=== PATIENT | male | born 1995 ===

== ENCOUNTER 2020-11-07 12:01 | Inpatient (IN) | payer OTHER ==
--- NOTE | 2020-11-07 13:37 | XRay Report ---
CHEST 2 VIEWS INDICATION / CLINICAL INFORMATION: shortness of breath. COMPARISON: None available. FINDINGS: SUPPORT DEVICES: None. HEART / MEDIASTINUM: No significant abnormality. LUNGS / PLEURA: Mildly low lung volumes, otherwise, no significant pulmonary or pleural abnormality. No pneumothorax. ADDITIONAL FINDINGS: No significant additional findings. IMPRESSION: 1. Slightly decreased lung volumes. No other significant finding. Signer Name: Annette Arevalo MD Signed: 11/07/2020 1:33 PM Workstation Name: [email or web address]
--- NOTE | 2020-11-07 14:28 | Emergency Department Report ---
<YONG SALINAS - Last Filed: 11/07/20 17:12> ED General Adult HPI - General Chief complaint: Dyspnea/Respdistress Stated complaint: SORETHROAT BREATHING VOMITING Time Seen by Provider: 11/07/20 13:52 Source: patient Mode of arrival: Ambulatory Limitations: No Limitations - History of Present Illness Initial comments: 25-year-old morbidly obese male presents to the ER today with complaints of shortness of breath, dizziness and fatigue. Patient states his symptoms started 2 weeks ago. He reports shortness of breath whether he is at rest or on exertion with associated dry mouth, intermittent vomiting, constipation, dizz iness, urinary frequency and fatigue. He denies any chest pain or abdominal pain. He denies any cough or wheezing. He denies any fever or chills. He denies any lower extremity swelling or calf pain. He denies any history of tobacco use, lung disease or heart disease or any other significant past history. MD Complaint: SOB/dizzy/vomiting/ -: week(s) (2) Severity scale (0 -10): 0 - Related Data Allergies Allergy/AdvReac Type Severity Reaction Status Date / Time No Known Allergies Allergy Unverified 11/07/20 12:13 ED Review of Systems Comment: All other systems reviewed and negative Constitutional: malaise. denies: chills, fever Eyes: denies: eye pain, eye discharge, vision change ENT: denies: ear pain, throat pain, dental pain, hearing loss, epistaxis, congestion Respiratory: shortness of breath, SOB with exertion, SOB at rest. denies: cough, orthopnea, stridor, wheezing Cardiovascular: denies: chest pain, palpitations, dyspnea on exertion, edema, syncope, paroxysmal nocturnal dyspnea Gastrointestinal: denies: abdominal pain, nausea, vomiting, diarrhea, constipati on, hematemesis, melena, hematochezia Genitourinary: frequency. denies: urgency, dysuria, hematuria, discharge, testicular pain, testicular mass Musculoskeletal: denies: back pain, joint swelling, arthralgia Skin: denies: rash, lesions, change in color, change in hair/nails, pruritus Neurological: abnormal gait, other (Dizzy). denies: headache, weakness, numbness, paresthesias, confusion Psychiatric: denies: anxiety, depression, auditory hallucinations, visual hallucinations, homicidal thoughts, suicidal thoughts Hematological/Lymphatic: denies: easy bleeding, easy bruising ED Past Medical Hx - Past Medical History Hx Hypertension: Yes Hx Asthma: No (denies) Hx COPD: No (denies) - Surgical History Past Surgical History?: No ED Physical Exam - General Limitations: No Limitations General appearance: alert, obese - Head Head exam: Present: atraumatic, normocephalic - Eye Eye exam: Present: normal appearance, PERRL, EOMI Pupils: Present: normal accommodation - ENT ENT exam: Present: mucous membranes dry - Expanded ENT Exam Expanded Mouth exam: Present: normal external inspection. Absent: drooling, trismus, muffled voice, tongue normal, tongue elevation, laceration - Neck Neck exam: Present: normal inspection, full ROM. Absent: meningismus - Respiratory Respiratory exam: Present: other (+ Kussmaul's respirations noted). Absent: wheezes, rales, rhonchi, stridor - Cardiovascular Cardiovascular Exam: Present: normal rhythm, tachycardia, normal heart sounds - GI/Abdominal GI/Abdominal exam: Present: soft. Absent: distended, tenderness, guarding, rebound - Back Exam Back exam: Present: normal inspection - Neurological Exam Neurological exam: Present: alert, oriented X3, CN II-XII intact, normal gait - Psychiatric Psychiatric exam: Present: normal affect, normal mood - Skin Skin exam: Present: intact ED Medical Decision Making - Lab Data Result diagrams: 11/07/20 14:24 11/07/20 16:00 - EKG Data Rate: tachycardia (1178) No standard instances Qtc: prolonged - Radiology Data Radiology results: report reviewed Patient: MARIA EUGENIA GUERRERO MR#: [id number] : 1995 Acct:[id number] Age/Sex: 25 / M ADM Date: 11/07/20 Loc: ED Attending Dr: Ordering Physician: DAMIEN THOMPSON Date of Service: 11/07/20 Procedure(s): XR chest routine 2V Accession Number(s): [id number] cc: DAMIEN THOMPSON Fluoro Time In Minutes: CHEST 2 VIEWS INDICATION / CLINICAL INFORMATION: shortness of breath. COMPARISON: None available. FINDINGS: SUPPORT DEVICES: None. HEART / MEDIASTINUM: No significant abnormality. LUNGS / PLEURA: Mildly low lung volumes, otherwise, no significant pulmonary or pleural abnormality. No pneumothorax. ADDITIONAL FINDINGS: No significant additional findings. IMPRESSION: 1. Slightly decreased lung volumes. No other significant finding. Signer Name: Annette Arevalo MD Signed: 11/07/2020 1:33 PM Workstation Name: [email or web address] Transcribed By: Dictated By: Annette Arevalo MD Electronically Authenticated By: Annette Arevalo MD Signed Date/Time: 11/07/201332 DD/ 31 TD/TT: - Medical Decision Making 1537: Work-up today shows that patient is a new onset diabetic in DKA. DKA protocol ordered. Case discussed with Dr. Anthony Ghosh. Patient will be admitted to hospital. Discussed case with for admission. Nurses are currently working on trying get a adrien IV but are having some difficulty. Dr Reid recommend PICC line if unsuccessful. ED Disposition Clinical Impression: New onset type 2 diabetes mellitus DKA (diabetic ketoacidosis) Qualifiers: Diabetes mellitus type: type 2 Diabetes mellitus complication detail: with coma Qualified Code(s): E11.11 - Type 2 diabetes mellitus with ketoacidosis with coma Disposition: DC-09 OP ADMIT IP TO THIS HOSP Is pt being admited?: Yes Does the pt Need Aspirin: No Condition: Critical <ARBEN TRUJILLO III - Last Filed: 11/07/20 20:13> ED General Adult HPI - General PUI?: No ED Review of Systems ROS: Stated complaint: SORETHROAT BREATHING VOMITING Other details as noted in HPI ED Course Vital Signs 11/07/20 11/07/20 11/07/20 12:18 12:19 19:55 Temperature 98.6 F Pulse Rate 124 H 122 H Respiratory 22 22 Rate Blood Pressure 163/93 Blood Pressure 169/93 [Right] O2 Sat by Pulse 98 97 99 Oximetry 11/07/20 19:59 Temperature 98.6 F Pulse Rate 116 H Respiratory 30 H Rate Blood Pressure Blood Pressure 157/75 [Right] O2 Sat by Pulse 99 Oximetry - Reevaluation(s) Reevaluation #1: I reviewed the findings and management of this patient in real-time and I have personally seen and examined this patient and participated in the decision making for this patient with the midlevel. Patient is a 25-year-old male that p resents emergency room with shortness of breath, dizziness and difficulty breathing. Patient found to be in DKA. Nursing staff unable to obtain a peripheral line. I will place a ultrasound-guided IV. I examined the patient. Patient is tachypneic. On the property assessment monitor patient is hypertensive. Patient's lung sounds are clear. CV Ricci shows a normal S1-S2 and no murmur. Patient has Kussmaul breathing. Abdominal exam is negative. I discussed all results with patient. I discussed plan of care with patient. Patient agrees with plan of care and admission. Patient to be admitted to the hospitalist service. See procedure note for ultrasound-guided IV. 11/07/20 18:08 Reevaluation #2: I discussed the procedure with the patient and the patient agrees. Patient will have a central line placed in his right IJ. See procedure note. 11/07/20 18:34 Reevaluation #3: Medication order placed for nurse to use a central line. I have personally reviewed the chest x-ray and it shows satisfactory placement of the central line. No pneumothorax noted. 11/07/20 20:12 - Consultations Consultation #1: I discussed the case with the hospitalist hospitalist was requested a central line be placed since the patient's peripheral IVs running bassinet. 11/07/20 18:24 - Central Line Placement Right IJ Consent Obtained: verbal consent, emergent situation Time Out Performed: Yes Patient Placed on Monitor/Pulse Ox: Yes MD Prep: mask, gown, gloves Central Line Prep: Chlorhexidine scrub, sterile drapes applied Local Anesthesia Used: Lidocaine 1% Amount of Anesthesia Used (mls): 5 Ultrasound Used for Placement: Yes Central Line Lumen Inserted: triple Reason for Insertion: Emergency Venous Access Bloods Obtained for Lab: No Central Line Position: good blood return, all ports aspirated, flus, sutured in place with 2-0 Dressing Applied: Tegaderm Post Procedure X-Ray: tip of catheter in good p, pneumothorax seen Patient Tolerated Procedure: well, no complications Complications: none Additional Comments: Central Venous Line Placement: Indication: Hemodynamic monitoring/Intravenous access A time-out was completed verifying correct patient, procedure, site, positioning.. The patient was placed in a dependent position appropriate for melissa tral lineplacement based on the vein to be cannulated. The patients <right neck was prepped and draped in sterile fashion. 1% Lidocaine was used to anesthetize the surrounding skin area. An ultrasound was used in a sterile fashion to identify vasculature. A triple lumen Cordis catheter was introduced into the the internal jugular using the Seldinger technique and under ultrasound guidance. The catheter was threaded smoothly over the guide wire and appropriate blood return was obtained. Each lumen of the catheter was evacuated of air and flushed with sterile saline. The catheter was then sutured in place to the skin and a sterile dressing applied. Perfusion to the extremity distal to the point of catheter insertion was checked and found to be adequate. A chest x-ray was ordered to assess for pneumothorax and line placement. Estimated Blood Loss: minimal The patient tolerated the procedure well and there were no complications. Care will be transferred back to the primary team. - EJ/Peripheral Line Arm R Time Out Performed: Yes Indications: nurses unable to establis Skin Cleansed in Sterile Fashion: Yes Size: 18 Dressing Placed: Tegaderm, tape Patient Tolerated Procedure: well, no complications Additional Comments: IV was placed under sterile conditions and using aseptic technique. Ultrasound- guided IV placed without difficulty. IV was placed into the right upper arm. IV had good blood return, flushed easily. A sterile Tegaderm was placed. Nurse cleared to use line. ED Medical Decision Making - Lab Data Result diagrams: 11/07/20 14:24 11/07/20 17:08 - Radiology Data Radiology results: report reviewed, image reviewed interpreted by me: Chest x-ray: No pneumonia, no pneumothorax, no foreign body, satisfactory place ment of the central line. No acute findings CHEST 1 VIEW 11/07/2020 6:44 PM INDICATION / CLINICAL INFORMATION: line placement. COMPARISON: 11/07/2020 FINDINGS: SUPPORT DEVICES: Central venous line tip projects the level the superior vena cava. HEART / MEDIASTINUM: No significant abnormality. LUNGS / PLEURA: No significant pulmonary or pleural abnormality. No pneumothora x. ADDITIONAL FINDINGS: No significant additional findings. IMPRESSION: 1. Central line in expected position. - Differential Diagnosis SLB, DKA, dizziness, electrolyte balance, dehydration Critical Care Time: Yes Critical care time in (mins) excluding proc time.: 35 Critical care attestation.: If time is entered above; I have spent that time in minutes in the direct care of this critically ill patient, excluding procedure time. Critical Care Time: 35 minutes ED Disposition Is pt being admited?: Yes Does the pt Need Aspirin: No Time of Disposition: 18:13
[2020-11-07] MEDS ORDERED: SODIUM CHLORIDE 0.9% 1000 ML 2,000 ML IV ONE (14:43)
[2020-11-07 15:02] LABS: Basophils # (Auto) 0.1 K/mm3 (0.0-0.1); Basophils % (Auto) 0.4 % (0.0-1.8); Lymphocytes # (Auto) 1.4 K/mm3 (1.2-5.4); Lymphocytes % (Auto) 7.9 % (13.4-35.0); Mean Corpuscular HGB Conc 31 % (32-34); Monocytes # (Auto) 1.9 K/mm3 (0.0-0.8); Monocytes % (Auto) 10.7 % (0.0-7.3); Platelet Count 271 K/mm3 (140-440); Red Cell Distribution Width 16.7 % (13.2-15.2)
[2020-11-07 15:05] LABS: Alanine Aminotransferase 31 units/L (7-56); BUN/Creatinine Ratio 8; Blood Urea Nitrogen 10 mg/dL (9-20); Calcium 9.6 mg/dL (8.4-10.2); Hemolysis Index 5
[2020-11-07] MEDS ORDERED: INSULIN REGULAR, HUMAN 100 UNITS/1 ML IV ONE (15:11)
[2020-11-07 15:17] LABS: Hematocrit 48.8 % (35.5-45.6); Hemoglobin 15.3 gm/dl (11.8-15.2); Mean Corpuscular Volume 66 fl (84-94)
[2020-11-07 15:20] LABS: Red Blood Count 7.38 M/mm3 (3.65-5.03)
[2020-11-07 16:29] LABS: BUN/Creatinine Ratio 8; Blood Urea Nitrogen 10 mg/dL (9-20); Calcium 9.1 mg/dL (8.4-10.2); Hemolysis Index 63
[2020-11-07 17:15] LABS: Bilirubin,Urine NEG (Negative); Blood,Urine MOD (Negative); Color,Urine Straw (Yellow); Mucus,Urine FEW /HPF; Urobilinogen,Urine < 2.0 mg/dL (<2.0); WBC,Urine < 1.0 /HPF (0.0-6.0)
[2020-11-07 17:41] LABS: BUN/Creatinine Ratio 8; Blood Urea Nitrogen 10 mg/dL (9-20); Calcium 9.1 mg/dL (8.4-10.2); Hemolysis Index 17
--- NOTE | 2020-11-07 19:58 | XRay Report ---
CHEST 1 VIEW 11/07/2020 6:44 PM INDICATION / CLINICAL INFORMATION: line placement. COMPARISON: 11/07/2020 FINDINGS: SUPPORT DEVICES: Central venous line tip projects the level the superior vena cava. HEART / MEDIASTINUM: No significant abnormality. LUNGS / PLEURA: No significant pulmonary or pleural abnormality. No pneumothorax. ADDITIONAL FINDINGS: No significant additional findings. IMPRESSION: 1. Central line in expected position. Signer Name: Yefri Mustafa MD Signed: 11/07/2020 7:53 PM Workstation Name: [id number]
[2020-11-07 20:22] LABS: BUN/Creatinine Ratio 7; Blood Urea Nitrogen 10 mg/dL (9-20); Calcium 9.7 mg/dL (8.4-10.2); Hemolysis Index 38
[2020-11-07] MEDS: INSULIN REGULAR, HUMAN 100 UNITS in SODIUM CHLORIDE 0.9% 99 ML IV SCH (20:30)
[2020-11-07] MEDS ORDERED: DEXTROSE 50% IN WATER (25GM) 50 ML SYRINGE IV PRN (21:00)
--- NOTE | 2020-11-07 21:04 | History and Physical Report ---
History of Present Illness Date of examination: 11/07/20 Date of admission: 11/07/20 16:01 Chief complaint: Generalized weakness excessive thirst for 1 week History of present illness: 25-year-old morbidly obese male with no significant past medical history except for hypertension comes in for severe generalized weakness shortness of breath and increasing polyuria polydipsia and polyphagia. Never had diabetes in the past. Patient is single started 2 weeks ago. Shortness of breath on minimal exertion. Dry mouth. Intermittent vomiting. Constipation. Dizziness. Increased urinary frequency and fatigue. No chest pain. No passing out. No syncope. No chest pain. Generally feels weak and tired and polydipsia and polyuria present. - Past Medical History --Hypertension: Yes --Asthma: No (denies) --COPD: No (denies) - Surgical History Past Surgical History?: No social history does not smoke family history hypertension Review of Systems Comment: All other systems reviewed and negative Constitutional: Generalized weakness Eyes: denies: eye pain, eye discharge, vision change ENT: denies: ear pain, throat pain, dental pain, hearing loss, epistaxis, congestion Respiratory: shortness of breath, SOB with exertion, SOB at rest. denies: cough, orthopnea, stridor, wheezing Cardiovascular: denies: chest pain, palpitations, dyspnea on exertion, edema, syncope, paroxysmal nocturnal dyspnea Gastrointestinal: Nausea nausea and occasional vomiting Genitourinary: frequency. denies: urgency, dysuria, hematuria, discharge, testicular pain, testicular mass Musculoskeletal: denies: back pain, joint swelling, arthralgia Skin: denies: rash, lesions, change in color, change in hair/nails, pruritus Neurological: abnormal gait, other (Dizzy). denies: headache, weakness, numbness, paresthesias, confusion Psychiatric: denies: anxiety, depression, auditory hallucinations, visual reddy llucinations, homicidal thoughts, suicidal thoughts Hematological/Lymphatic: denies: easy bleeding, easy bruising Medications and Allergies Allergies Allergy/AdvReac Type Severity Reaction Status Date / Time No Known Allergies Allergy Unverified 11/07/20 12:13 Active Meds: Active Medications Insulin Human Regular 100 (units/ Sodium Chloride) 100 mls @ 1 mls/hr IV TITR ANKIT; Protocol Last Admin: 11/07/20 20:30 Dose: 8 units/hr, 8 mls/hr Documented by: Exam - Constitutional Vitals: Temp Pulse Resp BP Pulse Ox 98.6 F 116 H 30 H 157/75 99 11/07/20 19:59 11/07/20 19:59 11/07/20 19:59 11/07/20 19:59 11/07/20 19:59 General appearance: Present: no acute distress, well-nourished - EENT Eyes: Present: PERRL ENT: hearing intact, clear oral mucosa, other (Dry tongue) - Neck Neck: Present: supple, normal ROM - Respiratory Respiratory effort: normal Respiratory: bilateral: CTA - Cardiovascular Heart rate: 98 Rhythm: regular Heart Sounds: Present: S1 & S2. Absent: rub, click - Extremities Extremities: pulses symmetrical, No edema Peripheral Pulses: within normal limits - Abdominal General gastrointestinal: Present: soft, non-tender, non-distended, normal bowel sounds Male genitourinary: Present: normal - Integumentary Integumentary: Present: clear, warm, dry - Musculoskeletal Musculoskeletal: gait normal, strength equal bilaterally - Psychiatric Psychiatric: appropriate mood/affect, intact judgment & insight - Neurologic Neurologic: CNII-XII intact, moves all extremities - Allied Health Allied health notes reviewed: nursing, case management HEART Score - HEART Score Troponin: Troponin T < 0.010 ng/mL (0.00-0.029) 11/07/20 14:24 Results - Labs CBC & Chem 7: 11/07/20 14:24 11/08/20 03:40 Labs: Laboratory Last Values WBC 17.4 K/mm3 (4.5-11.0) H 11/07/20 14:24 RBC 7.38 M/mm3 (3.65-5.03) H 11/07/20 14:24 Hgb 15.3 gm/dl (11.8-15.2) H 11/07/20 14:24 Hct 48.8 % (35.5-45.6) H 11/07/20 14:24 MCV 66 fl (84-94) L 11/07/20 14:24 MCH 21 pg (28-32) L 11/07/20 14:24 MCHC 31 % (32-34) L 11/07/20 14:24 RDW 16.7 % (13.2-15.2) H 11/07/20 14:24 Plt Count 271 K/mm3 (140-440) 11/07/20 14:24 Lymph % (Auto) 7.9 % (13.4-35.0) L 11/07/20 14:24 [place] % (Auto) 10.7 % (0.0-7.3) H 11/07/20 14:24 Eos % (Auto) 0.0 % (0.0-4.3) 11/07/20 14:24 Baso % (Auto) 0.4 % (0.0-1.8) 11/07/20 14:24 Lymph # (Auto) 1.4 K/mm3 (1.2-5.4) 11/07/20 14:24 [place] # (Auto) 1.9 K/mm3 (0.0-0.8) H 11/07/20 14:24 Eos # (Auto) 0.0 K/mm3 (0.0-0.4) 11/07/20 14:24 Baso # (Auto) 0.1 K/mm3 (0.0-0.1) 11/07/20 14:24 Seg Neutrophils % 81.0 % (40.0-70.0) H 11/07/20 14:24 Seg Neutrophils # 14.1 K/mm3 (1.8-7.7) H 11/07/20 14:24 VBG pH 7.130 (7.320-7.420) L* 11/07/20 15:16 Sodium 131 mmol/L (137-145) L 11/07/20 19:42 Potassium 4.2 mmol/L (3.6-5.0) 11/07/20 19:42 Chloride 90.2 mmol/L (98-107) L 11/07/20 19:42 Carbon Dioxide 6 mmol/L (22-30) L* 11/07/20 19:42 Anion Gap 39 mmol/L 11/07/20 19:42 BUN 10 mg/dL (9-20) 11/07/20 19:42 Creatinine 1.4 mg/dL (0.8-1.3) H 11/07/20 19:42 Estimated GFR > 60 ml/min 11/07/20 19:42 BUN/Creatinine Ratio 7 % 11/07/20 19:42 Glucose 664 mg/dL (75-100) H* 11/07/20 19:42 POC Glucose > 600 mg/dL (70-105) H 11/07/20 14:29 Calcium 9.7 mg/dL (8.4-10.2) 11/07/20 19:42 Phosphorus 3.60 mg/dL (2.5-4.5) 11/07/20 16:00 Magnesium 2.30 mg/dL (1.7-2.3) 11/07/20 16:00 Total Bilirubin 0.50 mg/dL (0.1-1.2) 11/07/20 14:24 AST 26 units/L (5-40) 11/07/20 14:24 ALT 31 units/L (7-56) 11/07/20 14:24 Alkaline Phosphatase 156 units/L (35-129) H 11/07/20 14:24 Troponin T < 0.010 ng/mL (0.00-0.029) 11/07/20 14:24 Total Protein 8.0 g/dL (6.3-8.2) 11/07/20 14:24 Albumin 4.0 g/dL (3.9-5) 11/07/20 14:24 Albumin/Globulin Ratio 1.0 % 11/07/20 14:24 Urine Color Straw (Yellow) 11/07/20 17:08 Urine Turbidity Clear (Clear) 11/07/20 17:08 Urine pH 6.0 (5.0-7.0) 11/07/20 17:08 Ur Specific Buckner 1.028 (1.003-1.030) 11/07/20 17:08 Urine Protein 30 mg/dl mg/dL (Negative) 11/07/20 17:08 Urine Glucose (UA) >=500 mg/dL (Negative) 11/07/20 17:08 Urine Ketones 80 mg/dL (Negative) 11/07/20 17:08 Urine Blood Mod (Negative) 11/07/20 17:08 Urine Nitrite Neg (Negative) 11/07/20 17:08 Urine Bilirubin Neg (Negative) 11/07/20 17:08 Urine Urobilinogen < 2.0 mg/dL (<2.0) 11/07/20 17:08 Ur Leukocyte Esterase Neg (Negative) 11/07/20 17:08 Urine WBC (Auto) < 1.0 /HPF (0.0-6.0) 11/07/20 17:08 Urine RBC (Auto) 1.0 /HPF (0.0-6.0) 11/07/20 17:08 U Epithel Cells (Auto) < 1.0 /HPF (0-13.0) 11/07/20 17:08 Urine Mucus Few /HPF 11/07/20 17:08 Short CBC 11/07/20 Range/Units 14:24 WBC 17.4 H (4.5-11.0) K/mm3 Hgb 15.3 H (11.8-15.2) gm/dl Hct 48.8 H (35.5-45.6) % Plt Count 271 (140-440) K/mm3 BMP 11/07/20 11/07/20 11/07/20 14:24 16:00 17:08 Sodium 129 L 124 L 126 L Potassium 4.0 4.3 3.7 Chloride 87.8 L 89.2 L 89.4 L Carbon Dioxide 6 L* 5 L* 5 L* BUN 10 10 10 Creatinine 1.2 1.3 1.3 Glucose 787 H* 820 H* 797 H* Calcium 9.6 9.1 9.1 11/07/20 11/07/20 11/08/20 19:42 21:00 03:40 Sodium 131 L 131 L 132 L Potassium 4.2 3.5 L 3.6 Chloride 90.2 L 96.3 L 100.3 Carbon Dioxide 6 L* 3 L* 6 L* BUN 10 10 9 Creatinine 1.4 H 1.2 1.1 Glucose 664 H* 577 H* 431 H Calcium 9.7 9.2 9.1 Cardiac Enzymes 11/07/20 Range/Units 14:24 Troponin T < 0.010 (0.00-0.029) ng/mL Liver Function 11/07/20 Range/Units 14:24 Total Bilirubin 0.50 (0.1-1.2) mg/dL AST 26 (5-40) units/L ALT 31 (7-56) units/L Alkaline Phosphatase 156 H (35-129) units/L Albumin 4.0 (3.9-5) g/dL Urine 11/07/20 Range/Units 17:08 Urine Color Straw (Yellow) Urine pH 6.0 (5.0-7.0) Ur Specific Buckner 1.028 (1.003-1.030) Urine Protein 30 mg/dl (Negative) mg/dL Urine Glucose (UA) >=500 (Negative) mg/dL Assessment and Plan Assessment and plan: Critical care statement The high probability OF a clinically significant sudden or life-threatening deterioration of the cardiorespiratory system and endocrine system required my full and direct attention, intervention and postoperative management. The aggregate critical care time was 40 minutes. The time is in addition to time spent performing reported procedures but includes the followin: Data review and interpretation 2: Patient assessment and monitoring of vital signs 3: Documentation 4:: Medication orders and management Advance Directives: Yes (Full code) VTE prophylaxis?: Chemical Plan of care discussed with patient/family: Yes - Patient Problems (1) DKA (diabetic ketoacidosis) Current Visit: Yes Status: Acute Qualifiers: Diabetes mellitus type: type 2 Diabetes mellitus complication detail: with coma Qualified Code(s): E11.11 - Type 2 diabetes mellitus with ketoacidosis with coma Plan to address problem: No history of diabetes in the past His age group may indicate KIRAN =maturity onset diabetes in the Borderline DKA and hyperosmolar state Treat the patient has DKA IV insulin IV fluids Supplement potassium if necessary IV insulin drip Dietitian consult (2) Metabolic acidosis Current Visit: Yes Status: Acute Plan to address problem: Correction of blood glucose levels and bicarb if necessary (3) Hyponatremia Current Visit: Yes Status: Acute Plan to address problem: Should correct with correction of blood glucose levels (4) Morbid obesity Current Visit: Yes Status: Chronic Plan to address problem: BMI is 53 Patient counseled Gastric bypass surgical candidate Patient to be referred to Dr. Cr as outpatient (5) DVT prophylaxis Current Visit: Yes Status: Acute Plan to address problem: On heparin and GI prophylaxis
[2020-11-07 21:56] LABS: BUN/Creatinine Ratio 8; Blood Urea Nitrogen 10 mg/dL (9-20); Calcium 9.2 mg/dL (8.4-10.2); Hemolysis Index 4
[2020-11-07] MEDS ORDERED: INSULIN REGULAR, HUMAN 100 UNITS in SODIUM CHLORIDE 0.9% 99 ML IV SCH (22:00)
[2020-11-07] MEDS ORDERED: INSULIN LISPRO 100 UNIT/ML SUB-Q SCH (22:00)
[2020-11-07] MEDS: D5W/0.45% NACL/KCL 20 MEQ 20 MEQ/1,000 ML BAG IV SCH (22:08)
[2020-11-07] MEDS: POTASSIUM CHLORIDE 10 MEQ 10 MEQ/100 ML BAG IV SCH ×4 (22:32→23:44)
[2020-11-07] MEDS: HEPARIN 5,000 UNIT/1 ML VIAL SUB-Q SCH (22:33)
[2020-11-08] MEDS: POTASSIUM CHLORIDE 10 MEQ 10 MEQ/100 ML BAG IV SCH ×2 (01:06→02:14)
[2020-11-08 04:21] LABS: BUN/Creatinine Ratio 8; Blood Urea Nitrogen 9 mg/dL (9-20); Calcium 9.1 mg/dL (8.4-10.2); Hemolysis Index 7
[2020-11-08] MEDS: D5W/0.45% NACL/KCL 20 MEQ 20 MEQ/1,000 ML BAG IV SCH ×2 (05:40→16:35)
[2020-11-08] MEDS: INSULIN REGULAR, HUMAN 100 UNITS in SODIUM CHLORIDE 0.9% 99 ML IV SCH ×2 (05:40→17:33)
[2020-11-08] MEDS ORDERED: hydrALAZINE 20 MG/1 ML INJ IV PRN (07:44)
[2020-11-08] MEDS: SODIUM CHLORIDE 0.9% 1000 ML 1,000 ML IV SCH ×2 (08:29→17:28)
[2020-11-08 10:07] LABS: Chol/HDL Ratio 4.35 %
[2020-11-08 10:40] LABS: BUN/Creatinine Ratio 9; Blood Urea Nitrogen 9 mg/dL (9-20); Calcium 10.1 mg/dL (8.4-10.2)
[2020-11-08 10:42] LABS: Hemolysis Index 5
--- NOTE | 2020-11-08 11:52 | Progress Note ---
<RANJITARTURO MitchellDayton - Last Filed: 11/08/20 14:08> Assessment and Plan Assessment and plan: This is a 25 year old male with HTN and MO admitted with DKA, electrolyte imbalances Neuro: No acute distress -Aspiration/fall precautions per policy -Reorientation as needed CV: Hypertension, elevated triglycerides -IV labetalol and hydralazine as needed -Blood pressure monitor per protocol -Start p.o. antihypertensives when able -Patient states that he does not take p.o. antihypertensives at home -11/18 lipid panel: Triglycerides 272, cholesterol 174, LDL 107, HDL 40 -Encourage lifestyle modifications Respiratory: Possible OHS/DOMINIQUE -Pulmonary hygiene -SPO2 monitoring -Supplemental oxygenation as needed -Outpatient PFTs and sleep study FEN/GI: DKA, hyponatremia, hypokalemia, metabolic acidosis, hyperphosphatemia, morbid obesity -Insulin drip -11/08 hemoglobin A1c pending -N.p.o. while on insulin drip -Replete potassium as needed -Nutrition consult -Dietary modifications and increasing physical activity encouraged -Trend BMP, phosphorus : NAD -Voiding into urinal Skin: No acute distress -Positional changes per protocol DVT/GI prophylaxis: Heparin subcu Lines: Right IJ TLC Dispo: ICU for now The high probability of a clinically significant, sudden or life threatening deterioration of the [endo] system(s) required my full and direct attention, intervention and personal management. The aggregate critical care time was [35] minutes. This time is in addition to time spent performing reported procedures but includes the following: [x] Data Review and interpretation [x] Patient assessment and monitoring of vital signs [x] Documentation [x] Medication orders and management History Interval history: This is a 25-year-old male with HTN and morbid obesity who presented to [facility] 11/07 with complaints of severe generalized weakness, shortness of breath and incre asing polyuria, polydipsia and polyphagia, SOB on minimal exertion, dry mouth, intermittent vomiting, constipation, dizziness, fatigue for approximately 2 weeks. Work-up in the emergency department revealed leukocytosis, polycythemia, hyponatremia, hypochloremia, Kussmaul's breathing on examination, Anion gap metabolic acidosis, hyperphosphatemia, hypokalemia, blood glucose of 787. Patient was admitted to the hospital service with consults to CCM on the DKA protocol. 11/08: AG not closed, IVF changed to ND from D51/2NS with KCL. Remains on insulin gtt and npo. K replaced Hospitalist Physical - Constitutional Vitals: Temp Pulse Resp BP Pulse Ox 98.6 F 104 H 26 H 134/85 97 11/08/20 04:28 11/08/20 09:41 11/08/20 09:41 11/08/20 09:41 11/08/20 09:41 General appearance: Present: no acute distress, well-nourished, obese - EENT Eyes: Present: PERRL, EOM intact ENT: hearing intact, clear oral mucosa, dentition normal - Neck Neck: Present: normal ROM - Respiratory Respiratory effort: normal Respiratory: bilateral: diminished - Cardiovascular Rhythm: regular Heart Sounds: Present: S1 & S2. Absent: systolic murmur, diastolic murmur - Extremities Extremities: no ischemia, pulses intact, pulses symmetrical, No edema, normal temperature, normal color, Full ROM (uses walker ) Peripheral Pulses: within normal limits - Abdominal General gastrointestinal: soft, non-tender, non-distended, normal bowel sounds - Integumentary Integumentary: Present: clear, warm, dry - Psychiatric Psychiatric: cooperative - Neurologic Neurologic: focal deficits, no moves all extremities - Allied Health Allied health notes reviewed: nursing, social work, case management HEART Score - HEART Score Troponin: Troponin T < 0.010 ng/mL (0.00-0.029) 11/07/20 14:24 Results - Labs CBC & Chem 7: 11/07/20 14:24 11/08/20 12:45 Labs: Laboratory Last Values WBC 17.4 K/mm3 (4.5-11.0) H 11/07/20 14:24 RBC 7.38 M/mm3 (3.65-5.03) H 11/07/20 14:24 Hgb 15.3 gm/dl (11.8-15.2) H 11/07/20 14:24 Hct 48.8 % (35.5-45.6) H 11/07/20 14:24 MCV 66 fl (84-94) L 11/07/20 14:24 MCH 21 pg (28-32) L 11/07/20 14:24 MCHC 31 % (32-34) L 11/07/20 14:24 RDW 16.7 % (13.2-15.2) H 11/07/20 14:24 Plt Count 271 K/mm3 (140-440) 11/07/20 14:24 Lymph % (Auto) 7.9 % (13.4-35.0) L 11/07/20 14:24 [place] % (Auto) 10.7 % (0.0-7.3) H 11/07/20 14:24 Eos % (Auto) 0.0 % (0.0-4.3) 11/07/20 14:24 Baso % (Auto) 0.4 % (0.0-1.8) 11/07/20 14:24 Lymph # (Auto) 1.4 K/mm3 (1.2-5.4) 11/07/20 14:24 [place] # (Auto) 1.9 K/mm3 (0.0-0.8) H 11/07/20 14:24 Eos # (Auto) 0.0 K/mm3 (0.0-0.4) 11/07/20 14:24 Baso # (Auto) 0.1 K/mm3 (0.0-0.1) 11/07/20 14:24 Seg Neutrophils % 81.0 % (40.0-70.0) H 11/07/20 14:24 Seg Neutrophils # 14.1 K/mm3 (1.8-7.7) H 11/07/20 14:24 VBG pH 7.130 (7.320-7.420) L* 11/07/20 15:16 Sodium 136 mmol/L (137-145) L 11/08/20 09:27 Potassium 3.4 mmol/L (3.6-5.0) L 11/08/20 09:27 Chloride 101.2 mmol/L (98-107) 11/08/20 09:27 Carbon Dioxide 11 mmol/L (22-30) L 11/08/20 09:27 Anion Gap 27 mmol/L 11/08/20 09:27 BUN 9 mg/dL (9-20) 11/08/20 09:27 Creatinine 1.0 mg/dL (0.8-1.3) 11/08/20 09:27 Estimated GFR > 60 ml/min 11/08/20 09:27 BUN/Creatinine Ratio 9 % 11/08/20 09:27 Glucose 342 mg/dL (75-100) H 11/08/20 09:27 POC Glucose 338 mg/dL (70-105) H 11/08/20 10:45 Calcium 10.1 mg/dL (8.4-10.2) 11/08/20 09:27 Phosphorus 2.30 mg/dL (2.5-4.5) L D 11/07/20 21:00 Magnesium 2.30 mg/dL (1.7-2.3) 11/07/20 21:00 Total Bilirubin 0.50 mg/dL (0.1-1.2) 11/07/20 14:24 AST 26 units/L (5-40) 11/07/20 14:24 ALT 31 units/L (7-56) 11/07/20 14:24 Alkaline Phosphatase 156 units/L (35-129) H 11/07/20 14:24 Troponin T < 0.010 ng/mL (0.00-0.029) 11/07/20 14:24 Total Protein 8.0 g/dL (6.3-8.2) 11/07/20 14:24 Albumin 4.0 g/dL (3.9-5) 11/07/20 14:24 Albumin/Globulin Ratio 1.0 % 11/07/20 14:24 Triglycerides 272 mg/dL (2-149) H 11/08/20 09:27 Cholesterol 174 mg/dL (50-199) 11/08/20 09:27 LDL Cholesterol Direct 107 mg/dL (50-130) 11/08/20 09:27 HDL Cholesterol 40 mg/dL (40-59) 11/08/20 09:27 Cholesterol/HDL Ratio 4.35 % 11/08/20 09:27 Urine Color Straw (Yellow) 11/07/20 17:08 Urine Turbidity Clear (Clear) 11/07/20 17:08 Urine pH 6.0 (5.0-7.0) 11/07/20 17:08 Ur Specific [place] 1.028 (1.003-1.030) 11/07/20 17:08 Urine Protein 30 mg/dl mg/dL (Negative) 11/07/20 17:08 Urine Glucose (UA) >=500 mg/dL (Negative) 11/07/20 17:08 Urine Ketones 80 mg/dL (Negative) 11/07/20 17:08 Urine Blood Mod (Negative) 11/07/20 17:08 Urine Nitrite Neg (Negative) 11/07/20 17:08 Urine Bilirubin Neg (Negative) 11/07/20 17:08 Urine Urobilinogen < 2.0 mg/dL (<2.0) 11/07/20 17:08 Ur Leukocyte Esterase Neg (Negative) 11/07/20 17:08 Urine WBC (Auto) < 1.0 /HPF (0.0-6.0) 11/07/20 17:08 Urine RBC (Auto) 1.0 /HPF (0.0-6.0) 11/07/20 17:08 U Epithel Cells (Auto) < 1.0 /HPF (0-13.0) 11/07/20 17:08 Urine Mucus Few /HPF 11/07/20 17:08 Peck/IV: Voiding Method Urinal Active Medications - Current Medications Current Medications: Generic Name Dose Route Start Last Admin Trade Name Freq PRN Reason Stop Dose Admin Dextrose 0 ml 11/07/20 21:00 Dextrose 50% In Water (25gm) 50 Ml Syringe IV Q30MIN PRN Hypoglycemia Protocol Heparin Sodium (Porcine) 5,000 unit 11/07/20 22:00 11/07/20 22:33 Heparin 5,000 Unit/1 Ml Vial SUB-Q 5,000 unit Q12HR ANKIT Administration Hydralazine HCl 10 mg 11/08/20 07:44 Hydralazine 20 Mg/1 Ml Inj IV Q4HR PRN Hypertension Insulin Human Regular 100 100 mls @ 1 mls/hr 11/07/20 16:00 11/08/20 10:48 units/ Sodium Chloride IV 12 units/hr TITR ANKIT 12 mls/hr Titration Protocol 1 UNITS/HR Potassium Chloride/Dextrose/Sod Cl 20 meq in 1,000 mls @ 125 mls/hr 11/07/20 22:00 11/08/20 05:40 D5w/0.45% Nacl/Kcl 20 Meq IV 125 mls/hr DIRECT ANKIT Administration Sodium Chloride 1,000 mls @ 125 mls/hr 11/08/20 08:30 11/08/20 08:29 Nacl 0.9% 1000 Ml IV 125 mls/hr DIRECT ANKIT Administration Labetalol HCl 10 mg 11/08/20 07:46 Labetalol 20 Mg/4 Ml Inj IV Q6HR PRN Hypertension Nutrition/Malnutrition Assess - Dietary Evaluation Nutrition/Malnutrition Findings: Nutrition Notes Start: 11/08/20 10:56 Freq: Status: Active Protocol: Document 11/08/20 10:57 JUJU (Rec: 11/08/20 11:01 JUJU [id number]) Nutrition Notes Need for Assessment generated from: MD Order,circuit court judge,MST, Education Initial or Follow up Brief Note Current Diagnosis Diabetes,Hypertension Current Diet No diet Labs/Tests BG >600 on adm Subjective/Other Information MD consult for education. RN screen for skin risk, new DM and MST. No signs of malnutrition. Pt accepted DM diet education however, he seemed more interested in getting water. Will follow for understanding. #1 Nutrition Diagnosis Food and nutrition-related knowledge deficit Etiology no prior DM education As Evidenced by Signs and Symptoms new DM diagnosis, pt had questions about carbs Nutrition Intervention Teaching Recipient Patient Learning Readiness Fair Teaching Methods Discussion,Handout Response to Teaching Reinforcement needed Education Handouts Provided Planning Healthy Meals Nutrition Label Reading Tips Barriers to Learning Motivation RD phone number provided Yes Patient aware of follow up options Yes Goal #1 Understand consistent CHO diet Anticipated Discharge Needs: Cardiac, Consistent CHO Follow-Up By: 11/11/20 Additional Comments FU for diet education reinforcement <GLENN ARCHER - Last Filed: 11/09/20 13:10> Assessment and Plan Assessment and plan: Agree with assessment and plan as outlined by nurse practitioner as above. Patient admitted for DKA, gap is not closed at this time, continues on insulin drip, monitoring labs closely. Continue care in ICU. Hospitalist Physical - Constitutional Vitals: Temp Pulse Resp BP Pulse Ox 99.4 F 105 H 27 H 152/76 100 11/09/20 12:00 11/09/20 10:11 11/09/20 10:11 11/09/20 10:11 11/09/20 10:11 HEART Score - HEART Score Troponin: Troponin T < 0.010 ng/mL (0.00-0.029) 11/07/20 14:24 Results - Labs CBC & Chem 7: 11/09/20 06:41 11/09/20 07:15 Labs: Laboratory Last Values WBC 11.4 K/mm3 (4.5-11.0) H 11/09/20 06:41 RBC 6.45 M/mm3 (3.65-5.03) H 11/09/20 06:41 Hgb 13.1 gm/dl (11.8-15.2) 11/09/20 06:41 Hct 40.0 % (35.5-45.6) 11/09/20 06:41 MCV 62 fl (84-94) L 11/09/20 06:41 MCH 20 pg (28-32) L 11/09/20 06:41 MCHC 33 % (32-34) 11/09/20 06:41 RDW 16.0 % (13.2-15.2) H 11/09/20 06:41 Plt Count 230 K/mm3 (140-440) 11/09/20 06:41 Lymph % (Auto) 7.9 % (13.4-35.0) L 11/07/20 14:24 [place] % (Auto) 10.7 % (0.0-7.3) H 11/07/20 14:24 Eos % (Auto) 0.0 % (0.0-4.3) 11/07/20 14:24 Baso % (Auto) 0.4 % (0.0-1.8) 11/07/20 14:24 Lymph # (Auto) 1.4 K/mm3 (1.2-5.4) 11/07/20 14:24 [place] # (Auto) 1.9 K/mm3 (0.0-0.8) H 11/07/20 14:24 Eos # (Auto) 0.0 K/mm3 (0.0-0.4) 11/07/20 14:24 Baso # (Auto) 0.1 K/mm3 (0.0-0.1) 11/07/20 14:24 Seg Neutrophils % 81.0 % (40.0-70.0) H 11/07/20 14:24 Seg Neutrophils # 14.1 K/mm3 (1.8-7.7) H 11/07/20 14:24 VBG pH 7.130 (7.320-7.420) L* 11/07/20 15:16 Sodium 136 mmol/L (137-145) L 11/09/20 07:15 Potassium 3.0 mmol/L (3.6-5.0) L 11/09/20 07:15 Chloride 105.0 mmol/L (98-107) 11/09/20 07:15 Carbon Dioxide 12 mmol/L (22-30) L 11/09/20 07:15 Anion Gap 22 mmol/L 11/09/20 07:15 BUN 10 mg/dL (9-20) 11/09/20 07:15 Creatinine 0.8 mg/dL (0.8-1.3) 11/09/20 07:15 Estimated GFR > 60 ml/min 11/09/20 07:15 BUN/Creatinine Ratio 13 % 11/09/20 07:15 Glucose 206 mg/dL (75-100) H 11/09/20 07:15 POC Glucose 188 mg/dL (70-105) H 11/09/20 13:01 Hemoglobin A1c 16.7 % (4-6) H 11/08/20 18:17 Calcium 9.5 mg/dL (8.4-10.2) 11/09/20 07:15 Phosphorus 0.60 mg/dL (2.5-4.5) L* D 11/09/20 06:41 Magnesium 2.10 mg/dL (1.7-2.3) 11/09/20 06:41 Total Bilirubin 0.40 mg/dL (0.1-1.2) 11/09/20 06:41 AST 21 units/L (5-40) 11/09/20 06:41 ALT 21 units/L (7-56) 11/09/20 06:41 Alkaline Phosphatase 113 units/L (35-129) 11/09/20 06:41 Troponin T < 0.010 ng/mL (0.00-0.029) 11/07/20 14:24 Total Protein 6.7 g/dL (6.3-8.2) 11/09/20 06:41 Albumin 3.2 g/dL (3.9-5) L 11/09/20 06:41 Albumin/Globulin Ratio 0.9 % 11/09/20 06:41 Triglycerides 272 mg/dL (2-149) H 11/08/20 09:27 Cholesterol 174 mg/dL (50-199) 11/08/20 09:27 LDL Cholesterol Direct 107 mg/dL (50-130) 11/08/20 09:27 HDL Cholesterol 40 mg/dL (40-59) 11/08/20 09:27 Cholesterol/HDL Ratio 4.35 % 11/08/20 09:27 Urine Color Straw (Yellow) 11/07/20 17:08 Urine Turbidity Clear (Clear) 11/07/20 17:08 Urine pH 6.0 (5.0-7.0) 11/07/20 17:08 Ur Specific [place] 1.028 (1.003-1.030) 11/07/20 17:08 Urine Protein 30 mg/dl mg/dL (Negative) 11/07/20 17:08 Urine Glucose (UA) >=500 mg/dL (Negative) 11/07/20 17:08 Urine Ketones 80 mg/dL (Negative) 11/07/20 17:08 Urine Blood Mod (Negative) 11/07/20 17:08 Urine Nitrite Neg (Negative) 11/07/20 17:08 Urine Bilirubin Neg (Negative) 11/07/20 17:08 Urine Urobilinogen < 2.0 mg/dL (<2.0) 11/07/20 17:08 Ur Leukocyte Esterase Neg (Negative) 11/07/20 17:08 Urine WBC (Auto) < 1.0 /HPF (0.0-6.0) 11/07/20 17:08 Urine RBC (Auto) 1.0 /HPF (0.0-6.0) 11/07/20 17:08 U Epithel Cells (Auto) < 1.0 /HPF (0-13.0) 11/07/20 17:08 Urine Mucus Few /HPF 11/07/20 17:08 Peck/IV: Voiding Method Urinal Active Medications - Current Medications Current Medications: Generic Name Dose Route Start Last Admin Trade Name Freq PRN Reason Stop Dose Admin Dextrose 0 ml 11/07/20 21:00 Dextrose 50% In Water (25gm) 50 Ml Syringe IV Q30MIN PRN Hypoglycemia Protocol Heparin Sodium (Porcine) 5,000 unit 11/07/20 22:00 11/09/20 09:18 Heparin 5,000 Unit/1 Ml Vial SUB-Q 5,000 unit Q12HR ANKIT Administration Hydralazine HCl 10 mg 11/08/20 07:44 Hydralazine 20 Mg/1 Ml Inj IV Q4HR PRN Hypertension Insulin Human Regular 100 100 mls @ 1 mls/hr 11/07/20 16:00 11/09/20 11:49 units/ Sodium Chloride IV 14 units/hr TITR ANKIT 14 mls/hr Titration Protocol 1 UNITS/HR Potassium Cl/Dextrose/Lact Ringer's 20 meq in 1,000 mls @ 125 mls/hr 11/09/20 08:00 11/09/20 08:43 D5lr W/Kcl 20 Meq IV 125 mls/hr DIRECT ANKIT Administration Sodium Phosphate 30 mmol/ 260 mls @ 40 mls/hr 11/09/20 08:00 11/09/20 08:49 Sodium Chloride IV 11/09/20 19:59 40 mls/hr Q6H ANKIT Administration Labetalol HCl 10 mg 11/08/20 07:46 Labetalol 20 Mg/4 Ml Inj IV Q6HR PRN Hypertension Nutrition/Malnutrition Assess - Dietary Evaluation Nutrition/Malnutrition Findings: Nutrition Notes Start: 11/08/20 10:56 Freq: Status: Active Protocol: Document 11/08/20 10:57 JUJU (Rec: 11/08/20 11:01 JUJU [id number]) Nutrition Notes Need for Assessment generated from: MD Order,circuit court judge,MST, Education Initial or Follow up Brief Note Current Diagnosis Diabetes,Hypertension Current Diet No diet Labs/Tests BG >600 on adm Subjective/Other Information MD consult for education. RN screen for skin risk, new DM and MST. No signs of malnutrition. Pt accepted DM diet education however, he seemed more interested in getting water. Will follow for understanding. #1 Nutrition Diagnosis Food and nutrition-related knowledge deficit Etiology no prior DM education As Evidenced by Signs and Symptoms new DM diagnosis, pt had questions about carbs Nutrition Intervention Teaching Recipient Patient Learning Readiness Fair Teaching Methods Discussion,Handout Response to Teaching Reinforcement needed Education Handouts Provided Planning Healthy Meals Nutrition Label Reading Tips Barriers to Learning Motivation RD phone number provided Yes Patient aware of follow up options Yes Goal #1 Understand consistent CHO diet Anticipated Discharge Needs: Cardiac, Consistent CHO Follow-Up By: 11/11/20 Additional Comments FU for diet education reinforcement
[2020-11-08] MEDS: HEPARIN 5,000 UNIT/1 ML VIAL SUB-Q SCH ×2 (12:30→21:31)
--- NOTE | 2020-11-08 12:57 | Consultation ---
History of Present Illness - Reason for Consult Consult date: 11/08/20 DKA - History of Present Illness 25 y/o male admitted with DKA Medications and Allergies Allergies Allergy/AdvReac Type Severity Reaction Status Date / Time No Known Allergies Allergy Unverified 11/14/20 09:54 Home Medications Medication Instructions Recorded Confirmed Last Taken Type Amoxicillin/K Clav Tab [Augmentin 1 each PO Q12HR #20 tablet 11/18/20 Unknown Rx 875MG TAB] Colesevelam [Welchol] 1,875 mg PO BID #14 tablet 11/18/20 Unknown Rx Gabapentin 100 mg PO Q8HR #90 capsule 11/18/20 Unknown Rx Insulin Glargine [Lantus VIAL] 35 units SUB-Q QAMDIAB 30 Days 11/18/20 Unknown Rx Insulin Glargine [Lantus VIAL] 35 units SUB-Q QHS 30 Days 11/18/20 Unknown Rx Insulin Regular, Human [HumuLIN R] 0 units SUB-Q ACHS 30 Days 11/18/20 Unknown Rx Insulin Regular, Human [HumuLIN R] 15 units SUB-Q AC 30 Days 11/18/20 Unknown Rx Metoprolol [Lopressor TAB] 50 mg PO BID #60 tablet 11/18/20 Unknown Rx Mupirocin [Bactroban 2% OINT] 1 applic TP BID #1 tube 11/18/20 Unknown Rx Phosphorus #1 [K-Phos Neutral] 250 mg PO QID #14 tablet 11/18/20 Unknown Rx Potassium Chloride 40 meq PO BID #10 packet 11/18/20 Unknown Rx lisinopriL [Zestril TAB] 20 mg PO QDAY #30 tablet 11/18/20 Unknown Rx Active Meds: Active Medications Dextrose (Dextrose 50% In Water (25gm) 50 Ml Syringe) 0 ml IV Q30MIN PRN; Protocol PRN Reason: Hypoglycemia Heparin Sodium (Porcine) (Heparin 5,000 Unit/1 Ml Vial) 5,000 unit SUB-Q Q12HR ANKIT Last Admin: 11/07/20 22:33 Dose: 5,000 unit Documented by: Hydralazine HCl (Hydralazine 20 Mg/1 Ml Inj) 10 mg IV Q4HR PRN PRN Reason: Hypertension Insulin Human Regular 100 (units/ Sodium Chloride) 100 mls @ 1 mls/hr IV TITR ANKIT; Protocol Last Titration: 11/08/20 10:48 Dose: 12 units/hr, 12 mls/hr Documented by: Potassium Chloride/Dextrose/Sod Cl (D5w/0.45% Nacl/Kcl 20 Meq) 20 meq in 1,000 mls @ 125 mls/hr IV DIRECT ANIKT Last Admin: 11/08/20 05:40 Dose: 125 mls/hr Documented by: Sodium Chloride (Nacl 0.9% 1000 Ml) 1,000 mls @ 125 mls/hr IV DIRECT ANKIT Last Admin: 11/08/20 08:29 Dose: 125 mls/hr Documented by: Labetalol HCl (Labetalol 20 Mg/4 Ml Inj) 10 mg IV Q6HR PRN PRN Reason: Hypertension Exam - Constitutional Vitals: Temp Pulse Resp BP Pulse Ox 98.6 F 104 H 26 H 134/85 97 11/08/20 04:28 11/08/20 09:41 11/08/20 09:41 11/08/20 09:41 11/08/20 09:41 General appearance: Present: no acute distress, well-nourished, obese - EENT Eyes: Present: PERRL, EOM intact Results - Labs CBC & Chem 7: 11/17/20 06:08 11/18/20 05:13 Labs: Abnormal lab results 11/07/20 11/07/20 11/07/20 Range/Units 14:24 14:24 14:29 WBC 17.4 H (4.5-11.0) K/mm3 RBC 7.38 H (3.65-5.03) M/mm3 Hgb 15.3 H (11.8-15.2) gm/dl Hct 48.8 H (35.5-45.6) % MCV 66 L (84-94) fl MCH 21 L (28-32) pg MCHC 31 L (32-34) % RDW 16.7 H (13.2-15.2) % Lymph % (Auto) 7.9 L (13.4-35.0) % [place] % (Auto) 10.7 H (0.0-7.3) % [place] # (Auto) 1.9 H (0.0-0.8) K/mm3 Seg Neutrophils % 81.0 H (40.0-70.0) % Seg Neutrophils # 14.1 H (1.8-7.7) K/mm3 VBG pH (7.320-7.420) Sodium 129 L (137-145) mmol/L Potassium (3.6-5.0) mmol/L Chloride 87.8 L (98-107) mmol/L Carbon Dioxide 6 L* (22-30) mmol/L Creatinine (0.8-1.3) mg/dL Glucose 787 H* (75-100) mg/dL POC Glucose > 600 H (70-105) mg/dL Phosphorus (2.5-4.5) mg/dL Alkaline Phosphatase 156 H (35-129) units/L Triglycerides (2-149) mg/dL 11/07/20 11/07/20 11/07/20 Range/Units 15:16 16:00 17:08 WBC (4.5-11.0) K/mm3 RBC (3.65-5.03) M/mm3 Hgb (11.8-15.2) gm/dl Hct (35.5-45.6) % MCV (84-94) fl MCH (28-32) pg MCHC (32-34) % RDW (13.2-15.2) % Lymph % (Auto) (13.4-35.0) % [place] % (Auto) (0.0-7.3) % [place] # (Auto) (0.0-0.8) K/mm3 Seg Neutrophils % (40.0-70.0) % Seg Neutrophils # (1.8-7.7) K/mm3 VBG pH 7.130 L* (7.320-7.420) Sodium 124 L 126 L (137-145) mmol/L Potassium (3.6-5.0) mmol/L Chloride 89.2 L 89.4 L (98-107) mmol/L Carbon Dioxide 5 L* 5 L* (22-30) mmol/L Creatinine (0.8-1.3) mg/dL Glucose 820 H* 797 H* (75-100) mg/dL POC Glucose (70-105) mg/dL Phosphorus (2.5-4.5) mg/dL Alkaline Phosphatase (35-129) units/L Triglycerides (2-149) mg/dL 11/07/20 11/07/20 11/07/20 Range/Units 19:42 21:00 21:04 WBC (4.5-11.0) K/mm3 RBC (3.65-5.03) M/mm3 Hgb (11.8-15.2) gm/dl Hct (35.5-45.6) % MCV (84-94) fl MCH (28-32) pg MCHC (32-34) % RDW (13.2-15.2) % Lymph % (Auto) (13.4-35.0) % [place] % (Auto) (0.0-7.3) % [place] # (Auto) (0.0-0.8) K/mm3 Seg Neutrophils % (40.0-70.0) % Seg Neutrophils # (1.8-7.7) K/mm3 VBG pH (7.320-7.420) Sodium 131 L 131 L (137-145) mmol/L Potassium 3.5 L (3.6-5.0) mmol/L Chloride 90.2 L 96.3 L (98-107) mmol/L Carbon Dioxide 6 L* 3 L* (22-30) mmol/L Creatinine 1.4 H (0.8-1.3) mg/dL Glucose 664 H* 577 H* (75-100) mg/dL POC Glucose 587 H (70-105) mg/dL Phosphorus 2.30 L D (2.5-4.5) mg/dL Alkaline Phosphatase (35-129) units/L Triglycerides (2-149) mg/dL 11/07/20 11/07/20 11/08/20 Range/Units 23:03 23:57 01:14 WBC (4.5-11.0) K/mm3 RBC (3.65-5.03) M/mm3 Hgb (11.8-15.2) gm/dl Hct (35.5-45.6) % MCV (84-94) fl MCH (28-32) pg MCHC (32-34) % RDW (13.2-15.2) % Lymph % (Auto) (13.4-35.0) % [place] % (Auto) (0.0-7.3) % [place] # (Auto) (0.0-0.8) K/mm3 Seg Neutrophils % (40.0-70.0) % Seg Neutrophils # (1.8-7.7) K/mm3 VBG pH (7.320-7.420) Sodium (137-145) mmol/L Potassium (3.6-5.0) mmol/L Chloride (98-107) mmol/L Carbon Dioxide (22-30) mmol/L Creatinine (0.8-1.3) mg/dL Glucose (75-100) mg/dL POC Glucose 545 H 539 H 492 H (70-105) mg/dL Phosphorus (2.5-4.5) mg/dL Alkaline Phosphatase (35-129) units/L Triglycerides (2-149) mg/dL 11/08/20 11/08/20 11/08/20 Range/Units 02:11 03:09 03:40 WBC (4.5-11.0) K/mm3 RBC (3.65-5.03) M/mm3 Hgb (11.8-15.2) gm/dl Hct (35.5-45.6) % MCV (84-94) fl MCH (28-32) pg MCHC (32-34) % RDW (13.2-15.2) % Lymph % (Auto) (13.4-35.0) % [place] % (Auto) (0.0-7.3) % [place] # (Auto) (0.0-0.8) K/mm3 Seg Neutrophils % (40.0-70.0) % Seg Neutrophils # (1.8-7.7) K/mm3 VBG pH (7.320-7.420) Sodium 132 L (137-145) mmol/L Potassium (3.6-5.0) mmol/L Chloride (98-107) mmol/L Carbon Dioxide 6 L* (22-30) mmol/L Creatinine (0.8-1.3) mg/dL Glucose 431 H (75-100) mg/dL POC Glucose 443 H 477 H (70-105) mg/dL Phosphorus (2.5-4.5) mg/dL Alkaline Phosphatase (35-129) units/L Triglycerides (2-149) mg/dL 11/08/20 11/08/20 11/08/20 Range/Units 04:05 05:06 06:34 WBC (4.5-11.0) K/mm3 RBC (3.65-5.03) M/mm3 Hgb (11.8-15.2) gm/dl Hct (35.5-45.6) % MCV (84-94) fl MCH (28-32) pg MCHC (32-34) % RDW (13.2-15.2) % Lymph % (Auto) (13.4-35.0) % [place] % (Auto) (0.0-7.3) % [place] # (Auto) (0.0-0.8) K/mm3 Seg Neutrophils % (40.0-70.0) % Seg Neutrophils # (1.8-7.7) K/mm3 VBG pH (7.320-7.420) Sodium (137-145) mmol/L Potassium (3.6-5.0) mmol/L Chloride (98-107) mmol/L Carbon Dioxide (22-30) mmol/L Creatinine (0.8-1.3) mg/dL Glucose (75-100) mg/dL POC Glucose 428 H 421 H 383 H (70-105) mg/dL Phosphorus (2.5-4.5) mg/dL Alkaline Phosphatase (35-129) units/L Triglycerides (2-149) mg/dL 11/08/20 11/08/20 11/08/20 Range/Units 08:14 09:27 09:27 WBC (4.5-11.0) K/mm3 RBC (3.65-5.03) M/mm3 Hgb (11.8-15.2) gm/dl Hct (35.5-45.6) % MCV (84-94) fl MCH (28-32) pg MCHC (32-34) % RDW (13.2-15.2) % Lymph % (Auto) (13.4-35.0) % [place] % (Auto) (0.0-7.3) % [place] # (Auto) (0.0-0.8) K/mm3 Seg Neutrophils % (40.0-70.0) % Seg Neutrophils # (1.8-7.7) K/mm3 VBG pH (7.320-7.420) Sodium 136 L (137-145) mmol/L Potassium 3.4 L (3.6-5.0) mmol/L Chloride (98-107) mmol/L Carbon Dioxide 11 L (22-30) mmol/L Creatinine (0.8-1.3) mg/dL Glucose 342 H (75-100) mg/dL POC Glucose 355 H (70-105) mg/dL Phosphorus (2.5-4.5) mg/dL Alkaline Phosphatase (35-129) units/L Triglycerides 272 H (2-149) mg/dL 11/08/20 11/08/20 11/08/20 Range/Units 09:29 10:45 12:26 WBC (4.5-11.0) K/mm3 RBC (3.65-5.03) M/mm3 Hgb (11.8-15.2) gm/dl Hct (35.5-45.6) % MCV (84-94) fl MCH (28-32) pg MCHC (32-34) % RDW (13.2-15.2) % Lymph % (Auto) (13.4-35.0) % [place] % (Auto) (0.0-7.3) % [place] # (Auto) (0.0-0.8) K/mm3 Seg Neutrophils % (40.0-70.0) % Seg Neutrophils # (1.8-7.7) K/mm3 VBG pH (7.320-7.420) Sodium (137-145) mmol/L Potassium (3.6-5.0) mmol/L Chloride (98-107) mmol/L Carbon Dioxide (22-30) mmol/L Creatinine (0.8-1.3) mg/dL Glucose (75-100) mg/dL POC Glucose 313 H 338 H 278 H (70-105) mg/dL Phosphorus (2.5-4.5) mg/dL Alkaline Phosphatase (35-129) units/L Triglycerides (2-149) mg/dL - Imaging and Cardiology Chest x-ray: image reviewed Assessment and Plan 25 y/o male with DKA 1. Patient's gap is not closed as he was started on D5 fluids before his sugar was less than 250. This was corrected this am. Will need to continue to be NPO until gap closes. Serial BMP's at q6 hour intervals. Once closed, then can start long acting insulin and feed. Continue Insulin drip. Will continue to follow.
[2020-11-08 13:47] LABS: BUN/Creatinine Ratio 10; Blood Urea Nitrogen 10 mg/dL (9-20); Calcium 9.4 mg/dL (8.4-10.2); Hemolysis Index 1
[2020-11-08] MEDS ORDERED: POTASSIUM CHLORIDE 10 MEQ 0 MEQ/0 ML BAG IV ONE (16:26)
[2020-11-08] MEDS ORDERED: POTASSIUM CHLORIDE 10 MEQ 10 MEQ/100 ML BAG IV ONE (16:27)
[2020-11-08] MEDS ORDERED: POTASSIUM CHLORIDE 20 MEQ 20 MEQ/100 ML BAG IV SCH (17:00)
[2020-11-08] MEDS: POTASSIUM CHLORIDE 20 MEQ 20 MEQ/100 ML BAG IV SCH ×2 (17:15→18:37)
[2020-11-08 19:18] LABS: BUN/Creatinine Ratio 10; Blood Urea Nitrogen 10 mg/dL (9-20); Calcium 9.3 mg/dL (8.4-10.2); Hemolysis Index 2
[2020-11-08 19:32] LABS: Hematocrit 42.8 % (35.5-45.6); Hemoglobin 13.7 gm/dl (11.8-15.2); Mean Corpuscular HGB Conc 32 % (32-34); Platelet Count 236 K/mm3 (140-440); Red Blood Count 6.65 M/mm3 (3.65-5.03)
[2020-11-08 19:33] LABS: Mean Corpuscular Volume 64 fl (84-94)
[2020-11-08 23:13] LABS: BUN/Creatinine Ratio 13; Blood Urea Nitrogen 10 mg/dL (9-20); Hemolysis Index 20
[2020-11-08] MEDS ORDERED: SODIUM CHLORIDE 0.9% 1000 ML 1,000 ML IV SCH (23:45)
[2020-11-09] MEDS ORDERED: NACL 0.9%/KCL 20 MEQ 20 MEQ/1,000 ML BAG IV SCH (01:00)
[2020-11-09] MEDS: INSULIN REGULAR, HUMAN 100 UNITS in SODIUM CHLORIDE 0.9% 99 ML IV SCH ×4 (01:02→21:24)
[2020-11-09] MEDS: D5W/0.45% NACL/KCL 20 MEQ 20 MEQ/1,000 ML BAG IV SCH (03:08)
[2020-11-09 07:05] LABS: Hemoglobin 13.1 gm/dl (11.8-15.2); Mean Corpuscular HGB Conc 33 % (32-34); Platelet Count 230 K/mm3 (140-440); Red Blood Count 6.45 M/mm3 (3.65-5.03)
[2020-11-09 07:10] LABS: Mean Corpuscular Volume 62 fl (84-94)
[2020-11-09 07:26] LABS: Alanine Aminotransferase 21 units/L (7-56); Albumin 3.2 g/dL (3.9-5); BUN/Creatinine Ratio 13; Blood Urea Nitrogen 10 mg/dL (9-20); Calcium 9.8 mg/dL (8.4-10.2); Hemolysis Index 15
[2020-11-09] MEDS ORDERED: LACTATED RINGERS 1,000 ML IV ONE (07:32)
[2020-11-09] MEDS ORDERED: LACTATED RINGERS 1,000 ML IV SCH (07:45)
[2020-11-09 08:29] LABS: BUN/Creatinine Ratio 13; Blood Urea Nitrogen 10 mg/dL (9-20); Calcium 9.5 mg/dL (8.4-10.2); Hemolysis Index 30
[2020-11-09] MEDS: POTASSIUM CHLORIDE 20 MEQ 20 MEQ/100 ML BAG IV SCH ×4 (08:43→17:10)
[2020-11-09] MEDS: D5LR W/KCL 20 MEQ 20 MEQ/1,000 ML BAG IV SCH ×2 (08:43→15:01)
[2020-11-09] MEDS: SODIUM PHOSPHATE 30 MMOL in SODIUM CHLORIDE 0.9% 500 ML 250 ML IV SCH ×2 (08:49→15:40)
[2020-11-09] MEDS: HEPARIN 5,000 UNIT/1 ML VIAL SUB-Q SCH ×2 (09:18→21:24)
[2020-11-09] MEDS ORDERED: SODIUM CHLORIDE 0.9% 1000 ML 2,000 ML IV ONE (09:22)
--- NOTE | 2020-11-09 09:24 | Progress Note ---
Assessment and Plan 25 y/o male with DKA 11/09/20: Will give 2 more liters of normal saline bolus today. Continue IV insulin drip and q6 hour BMP's until gap is less than 14-15. Once there can transition to long acting insulin therapy and feed patient. 1. Patient's gap is not closed as he was started on D5 fluids before his sugar was less than 250. This was corrected this am. Will need to continue to be NPO until gap closes. Serial BMP's at q6 hour intervals. Once closed, then can start long acting insulin and feed. Continue Insulin drip. Will continue to follow. CCT 31 minutes. Subjective Date of service: 11/09/20 Interval history: Anion Gap still elevated. HgB A1c is 16. Patient also morbidly obese. Remainder is negative. Stable on room air. Objective - Constitutional Vitals: Vital Signs - 12hr 11/08/20 11/08/20 11/08/20 21:30 21:41 21:51 Temperature Pulse Rate 104 H 99 H 99 H Pulse Rate [ From Monitor] Respiratory 30 H 21 26 H Rate Blood Pressure 164/62 164/62 164/62 O2 Sat by Pulse 97 99 97 Oximetry 11/08/20 11/08/20 11/08/20 22:00 22:11 22:21 Temperature Pulse Rate 100 H 101 H 100 H Pulse Rate [ From Monitor] Respiratory 21 29 H 29 H Rate Blood Pressure 133/76 133/76 133/76 O2 Sat by Pulse 91 98 98 Oximetry 11/08/20 11/08/20 11/08/20 22:31 22:41 22:51 Temperature Pulse Rate 101 H 104 H 99 H Pulse Rate [ From Monitor] Respiratory 27 H 26 H 29 H Rate Blood Pressure 133/76 133/76 133/76 O2 Sat by Pulse 96 96 98 Oximetry 11/08/20 11/08/20 11/08/20 23:00 23:01 23:11 Temperature Pulse Rate 102 H 100 H Pulse Rate [ 114 H From Monitor] Respiratory 26 H 30 H Rate Blood Pressure 133/76 133/76 O2 Sat by Pulse 98 99 Oximetry 11/08/20 11/08/20 11/08/20 23:21 23:29 23:31 Temperature 98.4 F Pulse Rate 101 H 102 H Pulse Rate [ From Monitor] Respiratory 29 H 19 Rate Blood Pressure 133/76 133/76 O2 Sat by Pulse 99 98 Oximetry 11/08/20 11/08/20 11/09/20 23:41 23:50 00:00 Temperature Pulse Rate 93 H 102 H 106 H Pulse Rate [ From Monitor] Respiratory 24 28 H 26 H Rate Blood Pressure 133/76 133/76 146/93 O2 Sat by Pulse 97 98 95 Oximetry 11/09/20 11/09/20 11/09/20 00:11 00:21 00:31 Temperature Pulse Rate 98 H 97 H 101 H Pulse Rate [ From Monitor] Respiratory 27 H 27 H 27 H Rate Blood Pressure 146/93 133/76 133/76 O2 Sat by Pulse 97 97 97 Oximetry 11/09/20 11/09/20 11/09/20 00:41 00:51 01:00 Temperature Pulse Rate 102 H 103 H Pulse Rate [ 95 H From Monitor] Respiratory 28 H 29 H Rate Blood Pressure 133/76 133/76 O2 Sat by Pulse 97 98 Oximetry 11/09/20 11/09/20 11/09/20 01:01 01:11 01:21 Temperature Pulse Rate 101 H 103 H 105 H Pulse Rate [ From Monitor] Respiratory 25 H 26 H 26 H Rate Blood Pressure 133/76 133/76 133/76 O2 Sat by Pulse 98 97 98 Oximetry 11/09/20 11/09/20 11/09/20 01:31 01:41 01:51 Temperature Pulse Rate 98 H 96 H 105 H Pulse Rate [ From Monitor] Respiratory 27 H 25 H 26 H Rate Blood Pressure 133/76 133/76 133/76 O2 Sat by Pulse 96 95 98 Oximetry 11/09/20 11/09/20 11/09/20 02:00 02:11 02:21 Temperature Pulse Rate 105 H 104 H Pulse Rate [ From Monitor] Respiratory 28 H 27 H Rate Blood Pressure 147/86 147/86 147/86 O2 Sat by Pulse 94 97 96 Oximetry 11/09/20 11/09/20 11/09/20 02:31 02:41 02:51 Temperature Pulse Rate 103 H 104 H 100 H Pulse Rate [ From Monitor] Respiratory 30 H 29 H 28 H Rate Blood Pressure 147/86 147/86 147/86 O2 Sat by Pulse 99 98 98 Oximetry 11/09/20 11/09/20 11/09/20 03:01 03:11 03:21 Temperature Pulse Rate 99 H 102 H 108 H Pulse Rate [ From Monitor] Respiratory 27 H 21 22 Rate Blood Pressure 147/86 147/86 147/86 O2 Sat by Pulse 98 98 Oximetry 11/09/20 11/09/20 11/09/20 03:31 03:41 03:51 Temperature Pulse Rate 102 H 96 H 97 H Pulse Rate [ From Monitor] Respiratory 29 H 29 H 30 H Rate Blood Pressure 147/86 147/86 147/86 O2 Sat by Pulse 97 98 98 Oximetry 11/09/20 11/09/20 11/09/20 03:56 04:00 04:01 Temperature 97.6 F Pulse Rate 102 H 96 H Pulse Rate [ From Monitor] Respiratory 27 H Rate Blood Pressure 164/104 O2 Sat by Pulse 96 Oximetry 11/09/20 11/09/20 11/09/20 04:11 04:20 04:31 Temperature Pulse Rate 98 H 101 H 103 H Pulse Rate [ From Monitor] Respiratory 24 25 H 28 H Rate Blood Pressure 164/104 147/86 164/104 O2 Sat by Pulse 97 96 97 Oximetry 11/09/20 11/09/20 11/09/20 04:41 04:51 05:01 Temperature Pulse Rate 102 H 95 H Pulse Rate [ From Monitor] Respiratory 29 H 25 H Rate Blood Pressure 164/104 164/104 164/104 O2 Sat by Pulse 96 99 97 Oximetry 11/09/20 11/09/20 11/09/20 05:11 05:21 05:31 Temperature Pulse Rate 95 H 96 H 103 H Pulse Rate [ From Monitor] Respiratory 28 H 27 H 24 Rate Blood Pressure 164/104 164/104 164/104 O2 Sat by Pulse 99 100 98 Oximetry 11/09/20 11/09/20 11/09/20 05:41 05:51 06:00 Temperature Pulse Rate 103 H 112 H 105 H Pulse Rate [ From Monitor] Respiratory 28 H 28 H 29 H Rate Blood Pressure 164/104 164/104 138/86 O2 Sat by Pulse 98 97 95 Oximetry 11/09/20 11/09/20 11/09/20 06:11 06:21 06:31 Temperature Pulse Rate 103 H 107 H 104 H Pulse Rate [ From Monitor] Respiratory 29 H 29 H 31 H Rate Blood Pressure 138/86 138/86 138/86 O2 Sat by Pulse 97 97 98 Oximetry 11/09/20 11/09/20 11/09/20 06:41 06:50 07:01 Temperature Pulse Rate 103 H 100 H 100 H Pulse Rate [ From Monitor] Respiratory 17 30 H 24 Rate Blood Pressure 138/86 138/86 138/86 O2 Sat by Pulse 98 98 97 Oximetry 11/09/20 11/09/20 11/09/20 07:11 07:21 07:31 Temperature Pulse Rate 100 H 102 H 96 H Pulse Rate [ From Monitor] Respiratory 30 H 27 H 25 H Rate Blood Pressure 138/86 138/86 138/86 O2 Sat by Pulse 98 98 100 Oximetry 11/09/20 11/09/20 11/09/20 07:41 07:51 08:00 Temperature 98.3 F Pulse Rate 97 H 95 H Pulse Rate [ From Monitor] Respiratory 47 H 24 30 H Rate Blood Pressure 138/86 138/86 148/82 O2 Sat by Pulse 99 99 98 Oximetry 11/09/20 11/09/20 11/09/20 08:11 08:21 08:31 Temperature Pulse Rate 99 H 99 H 100 H Pulse Rate [ From Monitor] Respiratory 28 H 26 H 20 Rate Blood Pressure 148/82 148/82 148/82 O2 Sat by Pulse 99 100 99 Oximetry 11/09/20 11/09/20 11/09/20 08:41 08:51 09:00 Temperature Pulse Rate 101 H 101 H Pulse Rate [ 95 H From Monitor] Respiratory 31 H 29 H 30 H Rate Blood Pressure 148/82 148/82 O2 Sat by Pulse 99 99 98 Oximetry - Labs CBC & Chem 7: 11/09/20 06:41 11/09/20 07:15 Labs: Abnormal lab results 11/08/20 11/08/20 11/08/20 Range/Units 09:27 09:27 09:29 WBC (4.5-11.0) K/mm3 RBC (3.65-5.03) M/mm3 MCV (84-94) fl MCH (28-32) pg RDW (13.2-15.2) % Sodium 136 L (137-145) mmol/L Potassium 3.4 L (3.6-5.0) mmol/L Carbon Dioxide 11 L (22-30) mmol/L Glucose 342 H (75-100) mg/dL POC Glucose 313 H (70-105) mg/dL Hemoglobin A1c (4-6) % Phosphorus (2.5-4.5) mg/dL Albumin (3.9-5) g/dL Triglycerides 272 H (2-149) mg/dL 11/08/20 11/08/20 11/08/20 Range/Units 10:45 12:26 12:45 WBC (4.5-11.0) K/mm3 RBC (3.65-5.03) M/mm3 MCV (84-94) fl MCH (28-32) pg RDW (13.2-15.2) % Sodium 134 L (137-145) mmol/L Potassium 3.2 L (3.6-5.0) mmol/L Carbon Dioxide 11 L (22-30) mmol/L Glucose 283 H (75-100) mg/dL POC Glucose 338 H 278 H (70-105) mg/dL Hemoglobin A1c (4-6) % Phosphorus (2.5-4.5) mg/dL Albumin (3.9-5) g/dL Triglycerides (2-149) mg/dL 11/08/20 11/08/20 11/08/20 Range/Units 14:56 16:24 17:26 WBC (4.5-11.0) K/mm3 RBC (3.65-5.03) M/mm3 MCV (84-94) fl MCH (28-32) pg RDW (13.2-15.2) % Sodium (137-145) mmol/L Potassium (3.6-5.0) mmol/L Carbon Dioxide (22-30) mmol/L Glucose (75-100) mg/dL POC Glucose 293 H 269 H 282 H (70-105) mg/dL Hemoglobin A1c (4-6) % Phosphorus (2.5-4.5) mg/dL Albumin (3.9-5) g/dL Triglycerides (2-149) mg/dL 11/08/20 11/08/20 11/08/20 Range/Units 18:17 18:17 18:17 WBC 14.2 H (4.5-11.0) K/mm3 RBC 6.65 H (3.65-5.03) M/mm3 MCV 64 L (84-94) fl MCH 21 L (28-32) pg RDW 16.0 H (13.2-15.2) % Sodium 135 L (137-145) mmol/L Potassium (3.6-5.0) mmol/L Carbon Dioxide 10 L (22-30) mmol/L Glucose 268 H (75-100) mg/dL POC Glucose (70-105) mg/dL Hemoglobin A1c 16.7 H (4-6) % Phosphorus (2.5-4.5) mg/dL Albumin (3.9-5) g/dL Triglycerides (2-149) mg/dL 11/08/20 11/08/20 11/08/20 Range/Units 18:35 20:16 20:47 WBC (4.5-11.0) K/mm3 RBC (3.65-5.03) M/mm3 MCV (84-94) fl MCH (28-32) pg RDW (13.2-15.2) % Sodium (137-145) mmol/L Potassium (3.6-5.0) mmol/L Carbon Dioxide (22-30) mmol/L Glucose (75-100) mg/dL POC Glucose 280 H 247 H 237 H (70-105) mg/dL Hemoglobin A1c (4-6) % Phosphorus (2.5-4.5) mg/dL Albumin (3.9-5) g/dL Triglycerides (2-149) mg/dL 11/08/20 11/08/20 11/08/20 Range/Units 21:34 22:40 23:02 WBC (4.5-11.0) K/mm3 RBC (3.65-5.03) M/mm3 MCV (84-94) fl MCH (28-32) pg RDW (13.2-15.2) % Sodium 131 L (137-145) mmol/L Potassium 3.2 L (3.6-5.0) mmol/L Carbon Dioxide 9 L* (22-30) mmol/L Glucose 226 H (75-100) mg/dL POC Glucose 261 H 239 H (70-105) mg/dL Hemoglobin A1c (4-6) % Phosphorus (2.5-4.5) mg/dL Albumin (3.9-5) g/dL Triglycerides (2-149) mg/dL 11/09/20 11/09/20 11/09/20 Range/Units 00:06 01:01 02:00 WBC (4.5-11.0) K/mm3 RBC (3.65-5.03) M/mm3 MCV (84-94) fl MCH (28-32) pg RDW (13.2-15.2) % Sodium (137-145) mmol/L Potassium (3.6-5.0) mmol/L Carbon Dioxide (22-30) mmol/L Glucose (75-100) mg/dL POC Glucose 243 H 225 H 219 H (70-105) mg/dL Hemoglobin A1c (4-6) % Phosphorus (2.5-4.5) mg/dL Albumin (3.9-5) g/dL Triglycerides (2-149) mg/dL 11/09/20 11/09/20 11/09/20 Range/Units 03:01 04:05 04:55 WBC (4.5-11.0) K/mm3 RBC (3.65-5.03) M/mm3 MCV (84-94) fl MCH (28-32) pg RDW (13.2-15.2) % Sodium (137-145) mmol/L Potassium (3.6-5.0) mmol/L Carbon Dioxide (22-30) mmol/L Glucose (75-100) mg/dL POC Glucose 201 H 193 H 231 H (70-105) mg/dL Hemoglobin A1c (4-6) % Phosphorus (2.5-4.5) mg/dL Albumin (3.9-5) g/dL Triglycerides (2-149) mg/dL 11/09/20 11/09/20 11/09/20 Range/Units 05:59 06:41 06:41 WBC 11.4 H (4.5-11.0) K/mm3 RBC 6.45 H (3.65-5.03) M/mm3 MCV 62 L (84-94) fl MCH 20 L (28-32) pg RDW 16.0 H (13.2-15.2) % Sodium 135 L (137-145) mmol/L Potassium 3.0 L (3.6-5.0) mmol/L Carbon Dioxide 11 L (22-30) mmol/L Glucose 219 H (75-100) mg/dL POC Glucose 233 H (70-105) mg/dL Hemoglobin A1c (4-6) % Phosphorus 0.60 L* D (2.5-4.5) mg/dL Albumin 3.2 L (3.9-5) g/dL Triglycerides (2-149) mg/dL 11/09/20 11/09/20 11/09/20 Range/Units 06:53 07:15 08:01 WBC (4.5-11.0) K/mm3 RBC (3.65-5.03) M/mm3 MCV (84-94) fl MCH (28-32) pg RDW (13.2-15.2) % Sodium 136 L (137-145) mmol/L Potassium 3.0 L (3.6-5.0) mmol/L Carbon Dioxide 12 L (22-30) mmol/L Glucose 206 H (75-100) mg/dL POC Glucose 229 H 227 H (70-105) mg/dL Hemoglobin A1c (4-6) % Phosphorus (2.5-4.5) mg/dL Albumin (3.9-5) g/dL Triglycerides (2-149) mg/dL 11/09/20 Range/Units 09:18 WBC (4.5-11.0) K/mm3 RBC (3.65-5.03) M/mm3 MCV (84-94) fl MCH (28-32) pg RDW (13.2-15.2) % Sodium (137-145) mmol/L Potassium (3.6-5.0) mmol/L Carbon Dioxide (22-30) mmol/L Glucose (75-100) mg/dL POC Glucose 220 H (70-105) mg/dL Hemoglobin A1c (4-6) % Phosphorus (2.5-4.5) mg/dL Albumin (3.9-5) g/dL Triglycerides (2-149) mg/dL Medications & Allergies - Medications Allergies/Adverse Reactions: Allergies No Known Allergies Allergy (Unverified 11/07/20 12:13) Home Medications: Home Medications Medication Instructions Recorded Confirmed Last Taken Type No Known Home Medications [No 11/08/20 11/08/20 Unknown History Reported Home Medications] Active Medications: Generic Name Dose Route Start Last Admin Trade Name Freq PRN Reason Stop Dose Admin Dextrose 0 ml 11/07/20 21:00 Dextrose 50% In Water (25gm) 50 Ml Syringe IV Q30MIN PRN Hypoglycemia Protocol Heparin Sodium (Porcine) 5,000 unit 11/07/20 22:00 11/08/20 21:31 Heparin 5,000 Unit/1 Ml Vial SUB-Q 5,000 unit Q12HR ANKIT Administration Hydralazine HCl 10 mg 11/08/20 07:44 Hydralazine 20 Mg/1 Ml Inj IV Q4HR PRN Hypertension Insulin Human Regular 100 100 mls @ 1 mls/hr 11/07/20 16:00 11/09/20 08:42 units/ Sodium Chloride IV 17 units/hr TITR ANKIT 17 mls/hr Administration Protocol 1 UNITS/HR Potassium Cl/Dextrose/Lact Ringer's 20 meq in 1,000 mls @ 125 mls/hr 11/09/20 08:00 11/09/20 08:43 D5lr W/Kcl 20 Meq IV 125 mls/hr DIRECT ANKIT Administration Potassium Chloride 20 meq in 100 mls @ 100 mls/hr 11/09/20 08:00 11/09/20 08:43 Kcl 20meq/100ml IV 11/09/20 09:59 100 mls/hr Q1H ANKIT Administration Sodium Phosphate 30 mmol/ 260 mls @ 40 mls/hr 11/09/20 08:00 11/09/20 08:49 Sodium Chloride IV 11/09/20 19:59 40 mls/hr Q6H ANKIT Administration Labetalol HCl 10 mg 11/08/20 07:46 Labetalol 20 Mg/4 Ml Inj IV Q6HR PRN Hypertension HEART Score - HEART Score Troponin: Troponin T < 0.010 ng/mL (0.00-0.029) 11/07/20 14:24
--- NOTE | 2020-11-09 09:46 | Electrocardiograph Report ---
[facility] Test Date: 2020-11-07 Test Time: 16:09:55 Pat Name: MARIA EUGENIA GUERRERO Department: Room: A251 1 Gender: M [employer] Att[employer]: RITCHIE : 1995 Requested By: YONG SALINAS Order Number: [id number] Reading MD: Lee Marmolejo Measurements Intervals [place] Rate: 117 P: 94 [place]: 154 QRS: 104 QRSD: 105 T: 11 QT: 356 QTc: 498 Interpretive Statements Sinus tachycardia ST elev, probable normal early repol pattern Prolonged QT interval No previous ECG available for comparison Electronically Signed On 11-09-2020 9:46:11 EDT by Lee Marmolejo
--- NOTE | 2020-11-09 11:03 | Progress Note ---
<ROBERTOJohnathonARTURODayton - Last Filed: 11/09/20 11:09> Assessment and Plan Assessment and plan: This is a 25 year old male with HTN and MO admitted with DKA, electrolyte imbalances Neuro: No acute distress -Aspiration/fall precautions per policy -Reorientation as needed CV: Hypertension, elevated triglycerides -IV labetalol and hydralazine as needed -Blood pressure monitor per protocol -Start p.o. antihypertensives when able -Patient states that he does not take p.o. antihypertensives at home -11/18 lipid panel: Triglycerides 272, cholesterol 174, LDL 107, HDL 40 -Encourage lifestyle modifications Respiratory: Possible OHS/DOMINIQUE -Pulmonary hygiene -SPO2 monitoring -Supplemental oxygenation as needed -Outpatient PFTs and sleep study FEN/GI: DKA, Severe hypophosphatemia, hyponatremia, hypokalemia, metabolic acidosis, morbid obesity -Insulin drip -11/08 hemoglobin A1c 16.7 -LR bolus, NS bolus x2 -MIVF LRD5@125ml/hr -N.p.o. while on insulin drip -Replete potassium as needed and recheck level -Replete phosphate and recheck level -Nutrition consult -Dietary modifications and increasing physical activity encouraged -Trend BMP, phosphorus : NAD -Voiding into urinal Skin: No acute distress -Positional changes per protocol DVT/GI prophylaxis: Heparin subcu Lines: Right IJ TLC Dispo: ICU for now The high probability of a clinically significant, sudden or life threatening deterioration of the [endo] system(s) required my full and direct attention, intervention and personal management. The aggregate critical care time was [35] minutes. This time is in addition to time spent performing reported procedures but includes the following: [x] Data Review and interpretation [x] Patient assessment and monitoring of vital signs [x] Documentation [x] Medication orders and management History Interval history: This is a 25-year-old male with HTN and morbid obesity who presented to [facility] 11/07 with complaints of severe generalized weakness, shortness of breath and incr easing polyuria, polydipsia and polyphagia, SOB on minimal exertion, dry mouth, intermittent vomiting, constipation, dizziness, fatigue for approximately 2 weeks. Work-up in the emergency department revealed leukocytosis, polycythemia, hyponatremia, hypochloremia, Kussmaul's breathing on examination, Anion gap metabolic acidosis, hyperphosphatemia, hypokalemia, blood glucose of 787. Patient was admitted to the hospital service with consults to CCM on the DKA protocol. 11/08: AG not closed, IVF changed to ND from D51/2NS with KCL. Remains on insulin gtt and npo. K replaced 11/09: AG still not closed and remains on insulin gtt. IVF changed to D5 LR. Ordered additional LR bolus. CCM ordered 2 NS bolus. 1400 BMP with repeats at 2000 and 0400. Hospitalist Physical - Constitutional Vitals: Temp Pulse Resp BP Pulse Ox 98.3 F 105 H 27 H 152/76 100 11/09/20 08:00 11/09/20 10:11 11/09/20 10:11 11/09/20 10:11 11/09/20 10:11 General appearance: Present: no acute distress, well-nourished, obese - EENT Eyes: Present: PERRL, EOM intact ENT: clear oral mucosa, dentition normal - Neck Neck: Present: normal ROM - Respiratory Respiratory effort: normal Respiratory: bilateral: diminished (2/2 girth) - Cardiovascular Rhythm: regular Heart Sounds: Present: S1 & S2. Absent: systolic murmur, diastolic murmur - Extremities Extremities: no ischemia, pulses intact, pulses symmetrical, No edema, normal temperature, normal color, Full ROM Peripheral Pulses: within normal limits - Abdominal General gastrointestinal: soft, non-tender, non-distended, normal bowel sounds - Integumentary Integumentary: Present: warm, dry - Psychiatric Psychiatric: cooperative - Neurologic Neurologic: CNII-XII intact, no focal deficits, moves all extremities - Allied Health Allied health notes reviewed: nursing, RT, social work HEART Score - HEART Score Troponin: Troponin T < 0.010 ng/mL (0.00-0.029) 11/07/20 14:24 Results - Labs CBC & Chem 7: 11/09/20 06:41 11/09/20 07:15 Labs: Laboratory Last Values WBC 11.4 K/mm3 (4.5-11.0) H 11/09/20 06:41 RBC 6.45 M/mm3 (3.65-5.03) H 11/09/20 06:41 Hgb 13.1 gm/dl (11.8-15.2) 11/09/20 06:41 Hct 40.0 % (35.5-45.6) 11/09/20 06:41 MCV 62 fl (84-94) L 11/09/20 06:41 MCH 20 pg (28-32) L 11/09/20 06:41 MCHC 33 % (32-34) 11/09/20 06:41 RDW 16.0 % (13.2-15.2) H 11/09/20 06:41 Plt Count 230 K/mm3 (140-440) 11/09/20 06:41 Lymph % (Auto) 7.9 % (13.4-35.0) L 11/07/20 14:24 Green % (Auto) 10.7 % (0.0-7.3) H 11/07/20 14:24 Eos % (Auto) 0.0 % (0.0-4.3) 11/07/20 14:24 Baso % (Auto) 0.4 % (0.0-1.8) 11/07/20 14:24 Lymph # (Auto) 1.4 K/mm3 (1.2-5.4) 11/07/20 14:24 Green # (Auto) 1.9 K/mm3 (0.0-0.8) H 11/07/20 14:24 Eos # (Auto) 0.0 K/mm3 (0.0-0.4) 11/07/20 14:24 Baso # (Auto) 0.1 K/mm3 (0.0-0.1) 11/07/20 14:24 Seg Neutrophils % 81.0 % (40.0-70.0) H 11/07/20 14:24 Seg Neutrophils # 14.1 K/mm3 (1.8-7.7) H 11/07/20 14:24 VBG pH 7.130 (7.320-7.420) L* 11/07/20 15:16 Sodium 136 mmol/L (137-145) L 11/09/20 07:15 Potassium 3.0 mmol/L (3.6-5.0) L 11/09/20 07:15 Chloride 105.0 mmol/L (98-107) 11/09/20 07:15 Carbon Dioxide 12 mmol/L (22-30) L 11/09/20 07:15 Anion Gap 22 mmol/L 11/09/20 07:15 BUN 10 mg/dL (9-20) 11/09/20 07:15 Creatinine 0.8 mg/dL (0.8-1.3) 11/09/20 07:15 Estimated GFR > 60 ml/min 11/09/20 07:15 BUN/Creatinine Ratio 13 % 11/09/20 07:15 Glucose 206 mg/dL (75-100) H 11/09/20 07:15 POC Glucose 230 mg/dL (70-105) H 11/09/20 10:24 Hemoglobin A1c 16.7 % (4-6) H 11/08/20 18:17 Calcium 9.5 mg/dL (8.4-10.2) 11/09/20 07:15 Phosphorus 0.60 mg/dL (2.5-4.5) L* D 11/09/20 06:41 Magnesium 2.10 mg/dL (1.7-2.3) 11/09/20 06:41 Total Bilirubin 0.40 mg/dL (0.1-1.2) 11/09/20 06:41 AST 21 units/L (5-40) 11/09/20 06:41 ALT 21 units/L (7-56) 11/09/20 06:41 Alkaline Phosphatase 113 units/L (35-129) 11/09/20 06:41 Troponin T < 0.010 ng/mL (0.00-0.029) 11/07/20 14:24 Total Protein 6.7 g/dL (6.3-8.2) 11/09/20 06:41 Albumin 3.2 g/dL (3.9-5) L 11/09/20 06:41 Albumin/Globulin Ratio 0.9 % 11/09/20 06:41 Triglycerides 272 mg/dL (2-149) H 11/08/20 09:27 Cholesterol 174 mg/dL (50-199) 11/08/20 09:27 LDL Cholesterol Direct 107 mg/dL (50-130) 11/08/20 09:27 HDL Cholesterol 40 mg/dL (40-59) 11/08/20 09:27 Cholesterol/HDL Ratio 4.35 % 11/08/20 09:27 Urine Color Straw (Yellow) 11/07/20 17:08 Urine Turbidity Clear (Clear) 11/07/20 17:08 Urine pH 6.0 (5.0-7.0) 11/07/20 17:08 Ur Specific Effort 1.028 (1.003-1.030) 11/07/20 17:08 Urine Protein 30 mg/dl mg/dL (Negative) 11/07/20 17:08 Urine Glucose (UA) >=500 mg/dL (Negative) 11/07/20 17:08 Urine Ketones 80 mg/dL (Negative) 11/07/20 17:08 Urine Blood Mod (Negative) 11/07/20 17:08 Urine Nitrite Neg (Negative) 11/07/20 17:08 Urine Bilirubin Neg (Negative) 11/07/20 17:08 Urine Urobilinogen < 2.0 mg/dL (<2.0) 11/07/20 17:08 Ur Leukocyte Esterase Neg (Negative) 11/07/20 17:08 Urine WBC (Auto) < 1.0 /HPF (0.0-6.0) 11/07/20 17:08 Urine RBC (Auto) 1.0 /HPF (0.0-6.0) 11/07/20 17:08 U Epithel Cells (Auto) < 1.0 /HPF (0-13.0) 11/07/20 17:08 Urine Mucus Few /HPF 11/07/20 17:08 Peck/IV: Voiding Method Urinal Active Medications - Current Medications Current Medications: Generic Name Dose Route Start Last Admin Trade Name Freq PRN Reason Stop Dose Admin Dextrose 0 ml 11/07/20 21:00 Dextrose 50% In Water (25gm) 50 Ml Syringe IV Q30MIN PRN Hypoglycemia Protocol Heparin Sodium (Porcine) 5,000 unit 11/07/20 22:00 11/09/20 09:18 Heparin 5,000 Unit/1 Ml Vial SUB-Q 5,000 unit Q12HR ANKIT Administration Hydralazine HCl 10 mg 11/08/20 07:44 Hydralazine 20 Mg/1 Ml Inj IV Q4HR PRN Hypertension Insulin Human Regular 100 100 mls @ 1 mls/hr 11/07/20 16:00 11/09/20 10:26 units/ Sodium Chloride IV 18 units/hr TITR ANKIT 18 mls/hr Titration Protocol 1 UNITS/HR Potassium Cl/Dextrose/Lact Ringer's 20 meq in 1,000 mls @ 125 mls/hr 11/09/20 08:00 11/09/20 08:43 D5lr W/Kcl 20 Meq IV 125 mls/hr DIRECT ANKIT Administration Sodium Phosphate 30 mmol/ 260 mls @ 40 mls/hr 11/09/20 08:00 11/09/20 08:49 Sodium Chloride IV 11/09/20 19:59 40 mls/hr Q6H ANKIT Administration Sodium Chloride 2,000 mls @ 999 mls/hr 11/09/20 09:22 11/09/20 10:02 Nacl 0.9% 1000 Ml IV 11/09/20 11:22 999 mls/hr ONCE ONE Administration Labetalol HCl 10 mg 11/08/20 07:46 Labetalol 20 Mg/4 Ml Inj IV Q6HR PRN Hypertension Nutrition/Malnutrition Assess - Dietary Evaluation Nutrition/Malnutrition Findings: Nutrition Notes Start: 11/08/20 10:56 Freq: Status: Active Protocol: Document 11/08/20 10:57 JUJU (Rec: 11/08/20 11:01 [id number]) Nutrition Notes Need for Assessment generated from: MD Order,risk control officer,MST, Education Initial or Follow up Brief Note Current Diagnosis Diabetes,Hypertension Current Diet No diet Labs/Tests BG >600 on adm Subjective/Other Information MD consult for education. RN screen for skin risk, new DM and MST. No signs of malnutrition. Pt accepted DM diet education however, he seemed more interested in getting water. Will follow for understanding. #1 Nutrition Diagnosis Food and nutrition-related knowledge deficit Etiology no prior DM education As Evidenced by Signs and Symptoms new DM diagnosis, pt had questions about carbs Nutrition Intervention Teaching Recipient Patient Learning Readiness Fair Teaching Methods Discussion,Handout Response to Teaching Reinforcement needed Education Handouts Provided Planning Healthy Meals Nutrition Label Reading Tips Barriers to Learning Motivation RD phone number provided Yes Patient aware of follow up options Yes Goal #1 Understand consistent CHO diet Anticipated Discharge Needs: Cardiac, Consistent CHO Follow-Up By: 11/11/20 Additional Comments FU for diet education reinforcement <GLENN ARCHER - Last Filed: 11/10/20 13:28> Assessment and Plan Assessment and plan: Agree with assessment and plan as outlined by nurse practitioner as above. Patient continues to be in DKA, continue insulin sliding drip and give fluids, change to LR. Replete electrolytes. Spoke with the mother, updated her on the patient's progress. Hospitalist Physical - Constitutional Vitals: Temp Pulse Resp BP Pulse Ox 98.9 F 129 H 31 H 124/35 98 11/10/20 03:44 11/10/20 11:31 11/10/20 11:31 11/10/20 11:31 11/10/20 11:31 HEART Score - HEART Score Troponin: Troponin T < 0.010 ng/mL (0.00-0.029) 11/07/20 14:24 Results - Labs CBC & Chem 7: 11/10/20 08:08 11/10/20 08:08 Labs: Laboratory Last Values WBC 13.2 K/mm3 (4.5-11.0) H 11/10/20 08:08 RBC 5.79 M/mm3 (3.65-5.03) H 11/10/20 08:08 Hgb 11.6 gm/dl (11.8-15.2) L 11/10/20 08:08 Hct 35.0 % (35.5-45.6) L 11/10/20 08:08 MCV 60 fl (84-94) L 11/10/20 08:08 MCH 20 pg (28-32) L 11/10/20 08:08 MCHC 33 % (32-34) 11/10/20 08:08 RDW 15.5 % (13.2-15.2) H 11/10/20 08:08 Plt Count 167 K/mm3 (140-440) 11/10/20 08:08 Lymph % (Auto) 7.9 % (13.4-35.0) L 11/07/20 14:24 Green % (Auto) 10.7 % (0.0-7.3) H 11/07/20 14:24 Eos % (Auto) 0.0 % (0.0-4.3) 11/07/20 14:24 Baso % (Auto) 0.4 % (0.0-1.8) 11/07/20 14:24 Lymph # (Auto) 1.4 K/mm3 (1.2-5.4) 11/07/20 14:24 Green # (Auto) 1.9 K/mm3 (0.0-0.8) H 11/07/20 14:24 Eos # (Auto) 0.0 K/mm3 (0.0-0.4) 11/07/20 14:24 Baso # (Auto) 0.1 K/mm3 (0.0-0.1) 11/07/20 14:24 Seg Neutrophils % 81.0 % (40.0-70.0) H 11/07/20 14:24 Seg Neutrophils # 14.1 K/mm3 (1.8-7.7) H 11/07/20 14:24 VBG pH 7.130 (7.320-7.420) L* 11/07/20 15:16 Sodium 135 mmol/L (137-145) L 11/10/20 08:08 Potassium 2.8 mmol/L (3.6-5.0) L* 11/10/20 08:08 Chloride 105.0 mmol/L (98-107) 11/10/20 08:08 Carbon Dioxide 15 mmol/L (22-30) L 11/10/20 08:08 Anion Gap 18 mmol/L 11/10/20 08:08 BUN 6 mg/dL (9-20) L 11/10/20 08:08 Creatinine 1.0 mg/dL (0.8-1.3) 11/10/20 08:08 Estimated GFR > 60 ml/min 11/10/20 08:08 BUN/Creatinine Ratio 7 % 11/10/20 08:08 Glucose 282 mg/dL (75-100) H 11/10/20 08:08 POC Glucose 216 mg/dL (70-105) H 11/10/20 12:20 Hemoglobin A1c 16.7 % (4-6) H 11/08/20 18:17 Calcium 8.8 mg/dL (8.4-10.2) 11/10/20 08:08 Phosphorus 0.70 mg/dL (2.5-4.5) L* 11/10/20 08:08 Magnesium 1.40 mg/dL (1.7-2.3) L 11/10/20 08:08 Total Bilirubin 0.40 mg/dL (0.1-1.2) 11/10/20 08:08 AST 25 units/L (5-40) 11/10/20 08:08 ALT 24 units/L (7-56) 11/10/20 08:08 Alkaline Phosphatase 104 units/L (35-129) 11/10/20 08:08 Troponin T < 0.010 ng/mL (0.00-0.029) 11/07/20 14:24 Total Protein 5.6 g/dL (6.3-8.2) L 11/10/20 08:08 Albumin 2.7 g/dL (3.9-5) L 11/10/20 08:08 Albumin/Globulin Ratio 0.9 % 11/10/20 08:08 Triglycerides 272 mg/dL (2-149) H 11/08/20 09:27 Cholesterol 174 mg/dL (50-199) 11/08/20 09:27 LDL Cholesterol Direct 107 mg/dL (50-130) 11/08/20 09:27 HDL Cholesterol 40 mg/dL (40-59) 11/08/20 09:27 Cholesterol/HDL Ratio 4.35 % 11/08/20 09:27 Urine Color Straw (Yellow) 11/07/20 17:08 Urine Turbidity Clear (Clear) 11/07/20 17:08 Urine pH 6.0 (5.0-7.0) 11/07/20 17:08 Ur Specific Effort 1.028 (1.003-1.030) 11/07/20 17:08 Urine Protein 30 mg/dl mg/dL (Negative) 11/07/20 17:08 Urine Glucose (UA) >=500 mg/dL (Negative) 11/07/20 17:08 Urine Ketones 80 mg/dL (Negative) 11/07/20 17:08 Urine Blood Mod (Negative) 11/07/20 17:08 Urine Nitrite Neg (Negative) 11/07/20 17:08 Urine Bilirubin Neg (Negative) 11/07/20 17:08 Urine Urobilinogen < 2.0 mg/dL (<2.0) 11/07/20 17:08 Ur Leukocyte Esterase Neg (Negative) 11/07/20 17:08 Urine WBC (Auto) < 1.0 /HPF (0.0-6.0) 11/07/20 17:08 Urine RBC (Auto) 1.0 /HPF (0.0-6.0) 11/07/20 17:08 U Epithel Cells (Auto) < 1.0 /HPF (0-13.0) 11/07/20 17:08 Urine Mucus Few /HPF 11/07/20 17:08 Peck/IV: Voiding Method Urinal Active Medications - Current Medications Current Medications: Generic Name Dose Route Start Last Admin Trade Name Freq PRN Reason Stop Dose Admin Acetaminophen 650 mg 11/10/20 10:18 11/10/20 12:07 Acetaminophen 325 Mg Tab PO 650 mg Q6H PRN Administration Pain, Mild (1-3) Dextrose 50 ml 11/10/20 11:00 Dextrose 50% In Water (25gm) 50 Ml Syringe IV Q30MIN PRN Hypoglycemia Protocol Heparin Sodium (Porcine) 5,000 unit 11/07/20 22:00 11/10/20 11:40 Heparin 5,000 Unit/1 Ml Vial SUB-Q 5,000 unit Q12HR ANKIT Administration Hydralazine HCl 10 mg 11/08/20 07:44 Hydralazine 20 Mg/1 Ml Inj IV Q4HR PRN Hypertension Magnesium Sulfate 4 gm in 100 mls @ 25 mls/hr 11/10/20 11:00 11/10/20 11:59 Magnesium Sulfate 4gm/100ml IV 11/10/20 14:59 25 mls/hr ONCE ONE Administration Potassium Phosphate 40 mmol/ 513.3333 mls @ 83 mls/hr 11/10/20 11:15 11/10/20 12:00 Sodium Chloride IV 11/10/20 17:26 83 mls/hr ONCE ONE Administration Insulin Glargine 40 units 11/10/20 11:00 11/10/20 11:43 Insulin Glargine 100 Units/Ml SUB-Q 40 units QAMDIAB [facility] Administration Insulin Human Regular 0 units 11/10/20 11:00 11/10/20 11:48 Insulin Regular, Human 100 Units/1 Ml SUB-Q 6 units Q6H ANKIT Administration Protocol Labetalol HCl 10 mg 11/08/20 07:46 Labetalol 20 Mg/4 Ml Inj IV Q6HR PRN Hypertension Metoprolol Tartrate 5 mg 11/10/20 13:26 Metoprolol Tartrate 5 Mg/5 Ml Inj IV Q6HR PRN Tachyarrhythmias Sodium Phosphate 250 mg 11/10/20 14:00 K-Phos Neutral 250 Mg Tab PO QID [facility] Nutrition/Malnutrition Assess - Dietary Evaluation Nutrition/Malnutrition Findings: Nutrition Notes Start: 11/08/20 10:56 Freq: Status: Active Protocol: Document 11/08/20 10:57 JUJU (Rec: 11/08/20 11:01 [email or web address] [id number]) Nutrition Notes Need for Assessment generated from: MD Order,risk control officer,MST, Education Initial or Follow up Brief Note Current Diagnosis Diabetes,Hypertension Current Diet No diet Labs/Tests BG >600 on adm Subjective/Other Information MD consult for education. RN screen for skin risk, new DM and MST. No signs of malnutrition. Pt accepted DM diet education however, he seemed more interested in getting water. Will follow for understanding. #1 Nutrition Diagnosis Food and nutrition-related knowledge deficit Etiology no prior DM education As Evidenced by Signs and Symptoms new DM diagnosis, pt had questions about carbs Nutrition Intervention Teaching Recipient Patient Learning Readiness Fair Teaching Methods Discussion,Handout Response to Teaching Reinforcement needed Education Handouts Provided Planning Healthy Meals Nutrition Label Reading Tips Barriers to Learning Motivation RD phone number provided Yes Patient aware of follow up options Yes Goal #1 Understand consistent CHO diet Anticipated Discharge Needs: Cardiac, Consistent CHO Follow-Up By: 11/11/20 Additional Comments FU for diet education reinforcement
[2020-11-09 16:10] LABS: BUN/Creatinine Ratio 9; Blood Urea Nitrogen 7 mg/dL (9-20); Calcium 8.7 mg/dL (8.4-10.2); Hemolysis Index 0
[2020-11-09 16:21] LABS: Alanine Aminotransferase 24 units/L (7-56); Albumin 3.1 g/dL (3.9-5); BUN/Creatinine Ratio 9; Blood Urea Nitrogen 7 mg/dL (9-20); Calcium 8.7 mg/dL (8.4-10.2); Hemolysis Index 6
[2020-11-09 19:48] LABS: BUN/Creatinine Ratio 8; Blood Urea Nitrogen 6 mg/dL (9-20); Calcium 8.5 mg/dL (8.4-10.2); Hemolysis Index 6
[2020-11-09] MEDS ORDERED: SODIUM PHOSPHATE 30 MMOL in SODIUM CHLORIDE 0.9% 500 ML 500 ML IV ONE (20:15)
[2020-11-10] MEDS: D5LR W/KCL 20 MEQ 20 MEQ/1,000 ML BAG IV SCH (01:10)
[2020-11-10] MEDS: INSULIN REGULAR, HUMAN 100 UNITS in SODIUM CHLORIDE 0.9% 99 ML IV SCH ×2 (01:19→04:35)
[2020-11-10 09:31] LABS: Hemoglobin 11.6 gm/dl (11.8-15.2); Mean Corpuscular HGB Conc 33 % (32-34); Platelet Count 167 K/mm3 (140-440); Red Blood Count 5.79 M/mm3 (3.65-5.03); Red Cell Distribution Width 15.5 % (13.2-15.2)
[2020-11-10 09:36] LABS: Mean Corpuscular Volume 60 fl (84-94)
[2020-11-10 09:48] LABS: BUN/Creatinine Ratio 7
[2020-11-10 09:56] LABS: Alanine Aminotransferase 24 units/L (7-56); Albumin 2.7 g/dL (3.9-5); Blood Urea Nitrogen 6 mg/dL (9-20); Calcium 8.8 mg/dL (8.4-10.2); Hemolysis Index 2
--- NOTE | 2020-11-10 10:34 | Progress Note ---
Assessment and Plan 25 y/o male with DKA 11/10/20: Started lantus 40 based on weight as patient was on a very large amount of insulin and given his size, likely accurate but he may end up requiring more. I have started with this as he is not hungry and does not have much of an appetite. Will place him on q6 hour FSBS and give 2 more liters of normal salin e today. If he eats, and sugars maintain, would have not problem with transfer to floor. Also added high dose Correction insulin as well. 11/09/20: Will give 2 more liters of normal saline bolus today. Continue IV insulin drip and q6 hour BMP's until gap is less than 14-15. Once there can transition to long acting insulin therapy and feed patient. 1. Patient's gap is not closed as he was started on D5 fluids before his sugar was less than 250. This was corrected this am. Will need to continue to be NPO until gap closes. Serial BMP's at q6 hour intervals. Once closed, then can sta rt long acting insulin and feed. Continue Insulin drip. Will continue to follow. CCT 31 minutes. Subjective Date of service: 11/10/20 Interval history: Anion Gap is closed. Awake and alert. Thirsty but does not have much of an a ppetite. Still tachy. Objective - Constitutional Vitals: Vital Signs - 12hr 11/09/20 11/09/20 11/09/20 22:31 22:41 22:51 Temperature Pulse Rate 125 H 126 H 124 H Pulse Rate [ From Monitor] Respiratory 29 H 39 H 38 H Rate Blood Pressure 146/54 146/54 146/54 O2 Sat by Pulse 100 98 99 Oximetry 11/09/20 11/09/20 11/09/20 23:01 23:11 23:21 Temperature Pulse Rate 128 H 120 H 126 H Pulse Rate [ From Monitor] Respiratory 34 H 37 H 31 H Rate Blood Pressure 146/54 146/54 146/54 O2 Sat by Pulse 98 100 99 Oximetry 11/09/20 11/09/20 11/09/20 23:31 23:41 23:51 Temperature Pulse Rate 122 H 127 H 124 H Pulse Rate [ From Monitor] Respiratory 38 H 34 H 31 H Rate Blood Pressure 146/54 146/54 146/54 O2 Sat by Pulse 99 99 98 Oximetry 11/09/20 11/10/20 11/10/20 23:54 00:00 00:01 Temperature 99.4 F Pulse Rate 122 H 125 H Pulse Rate [ From Monitor] Respiratory 31 H Rate Blood Pressure 146/54 O2 Sat by Pulse 98 Oximetry 11/10/20 11/10/20 11/10/20 00:11 00:21 00:31 Temperature Pulse Rate 119 H 115 H 116 H Pulse Rate [ From Monitor] Respiratory 25 H 34 H 28 H Rate Blood Pressure 146/54 136/54 136/54 O2 Sat by Pulse 99 99 100 Oximetry 11/10/20 11/10/20 11/10/20 00:41 00:51 01:00 Temperature Pulse Rate 119 H 123 H Pulse Rate [ 121 H From Monitor] Respiratory 23 39 H 22 Rate Blood Pressure 136/54 136/54 O2 Sat by Pulse 98 100 99 Oximetry 11/10/20 11/10/20 11/10/20 01:01 01:11 01:21 Temperature Pulse Rate 121 H 121 H 121 H Pulse Rate [ From Monitor] Respiratory 17 34 H 36 H Rate Blood Pressure 136/54 136/54 136/54 O2 Sat by Pulse 99 99 98 Oximetry 11/10/20 11/10/20 11/10/20 01:31 01:41 01:50 Temperature Pulse Rate 118 H 113 H 119 H Pulse Rate [ From Monitor] Respiratory 18 34 H 34 H Rate Blood Pressure 136/54 136/54 136/54 O2 Sat by Pulse 100 97 98 Oximetry 11/10/20 11/10/20 11/10/20 02:00 02:11 02:20 Temperature Pulse Rate 124 H 126 H 120 H Pulse Rate [ From Monitor] Respiratory 33 H 35 H 29 H Rate Blood Pressure 149/66 149/66 149/66 O2 Sat by Pulse 99 99 99 Oximetry 11/10/20 11/10/20 11/10/20 02:31 02:41 02:51 Temperature Pulse Rate 118 H 118 H 118 H Pulse Rate [ From Monitor] Respiratory 37 H 38 H 36 H Rate Blood Pressure 149/66 149/66 149/66 O2 Sat by Pulse 98 99 98 Oximetry 11/10/20 11/10/20 11/10/20 03:01 03:11 03:21 Temperature Pulse Rate 121 H 119 H 126 H Pulse Rate [ From Monitor] Respiratory 24 35 H 23 Rate Blood Pressure 149/66 149/66 149/66 O2 Sat by Pulse 100 99 99 Oximetry 11/10/20 11/10/20 11/10/20 03:30 03:40 03:44 Temperature 98.9 F Pulse Rate 119 H 119 H Pulse Rate [ From Monitor] Respiratory 27 H 30 H Rate Blood Pressure 149/66 149/66 O2 Sat by Pulse 99 100 Oximetry 11/10/20 11/10/20 11/10/20 03:50 04:00 04:10 Temperature Pulse Rate 122 H 122 H 122 H Pulse Rate [ From Monitor] Respiratory 26 H 32 H 38 H Rate Blood Pressure 149/66 149/66 133/64 O2 Sat by Pulse 100 99 100 Oximetry 11/10/20 11/10/20 11/10/20 04:20 04:30 04:40 Temperature Pulse Rate 124 H 125 H 122 H Pulse Rate [ From Monitor] Respiratory 38 H 37 H 39 H Rate Blood Pressure 133/64 133/64 133/64 O2 Sat by Pulse 100 99 99 Oximetry 11/10/20 11/10/20 11/10/20 04:50 05:00 05:10 Temperature Pulse Rate 125 H 120 H 119 H Pulse Rate [ 120 H From Monitor] Respiratory 35 H 37 H 35 H Rate Blood Pressure 133/64 133/64 133/64 O2 Sat by Pulse 98 100 99 Oximetry 11/10/20 11/10/20 11/10/20 05:21 05:31 05:41 Temperature Pulse Rate 118 H 122 H 121 H Pulse Rate [ From Monitor] Respiratory 35 H 38 H 37 H Rate Blood Pressure 133/64 133/64 133/64 O2 Sat by Pulse 99 99 99 Oximetry 11/10/20 11/10/20 11/10/20 05:51 06:00 06:11 Temperature Pulse Rate 134 H 126 H 125 H Pulse Rate [ From Monitor] Respiratory 21 38 H 28 H Rate Blood Pressure 133/64 131/60 131/60 O2 Sat by Pulse 99 96 97 Oximetry 11/10/20 11/10/20 11/10/20 06:21 06:31 06:41 Temperature Pulse Rate 121 H 122 H 122 H Pulse Rate [ From Monitor] Respiratory 33 H 37 H 26 H Rate Blood Pressure 131/60 131/60 131/60 O2 Sat by Pulse 99 98 99 Oximetry 07/04/21 07/04/21 07/04/21 06:51 07:00 07:11 Temperature Pulse Rate 117 H 120 H 120 H Pulse Rate [ From Monitor] Respiratory 27 H 26 H 32 H Rate Blood Pressure 131/60 131/60 131/60 O2 Sat by Pulse 99 97 96 Oximetry 11/10/20 11/10/20 11/10/20 07:21 07:31 07:41 Temperature Pulse Rate 136 H 119 H 122 H Pulse Rate [ From Monitor] Respiratory 31 H 36 H 27 H Rate Blood Pressure 131/60 131/60 131/60 O2 Sat by Pulse 99 98 99 Oximetry 11/10/20 11/10/20 11/10/20 07:51 08:00 08:11 Temperature Pulse Rate 122 H 118 H 122 H Pulse Rate [ From Monitor] Respiratory 37 H 30 H 12 Rate Blood Pressure 131/60 119/62 119/62 O2 Sat by Pulse 97 99 98 Oximetry 11/10/20 11/10/20 11/10/20 08:21 08:31 08:41 Temperature Pulse Rate 119 H 116 H 118 H Pulse Rate [ From Monitor] Respiratory 14 17 19 Rate Blood Pressure 119/62 119/62 131/60 O2 Sat by Pulse 99 99 99 Oximetry 11/10/20 11/10/20 11/10/20 08:51 09:00 09:01 Temperature Pulse Rate 124 H 117 H Pulse Rate [ 118 H From Monitor] Respiratory 36 H 30 H 19 Rate Blood Pressure 131/60 131/60 O2 Sat by Pulse 99 98 98 Oximetry - Labs CBC & Chem 7: 11/10/20 08:08 11/10/20 08:08 Labs: Abnormal lab results 11/09/20 11/09/20 11/09/20 Range/Units 11:26 13:00 13:01 WBC (4.5-11.0) K/mm3 RBC (3.65-5.03) M/mm3 Hgb (11.8-15.2) gm/dl Hct (35.5-45.6) % MCV (84-94) fl MCH (28-32) pg RDW (13.2-15.2) % Sodium (137-145) mmol/L Potassium 2.9 L* (3.6-5.0) mmol/L Chloride (98-107) mmol/L Carbon Dioxide (22-30) mmol/L BUN (9-20) mg/dL Glucose (75-100) mg/dL POC Glucose 190 H 188 H (70-105) mg/dL Phosphorus (2.5-4.5) mg/dL Total Protein (6.3-8.2) g/dL Albumin (3.9-5) g/dL 11/09/20 11/09/20 11/09/20 Range/Units 14:34 15:03 15:10 WBC (4.5-11.0) K/mm3 RBC (3.65-5.03) M/mm3 Hgb (11.8-15.2) gm/dl Hct (35.5-45.6) % MCV (84-94) fl MCH (28-32) pg RDW (13.2-15.2) % Sodium (137-145) mmol/L Potassium 3.0 L (3.6-5.0) mmol/L Chloride 110.1 H (98-107) mmol/L Carbon Dioxide 13 L (22-30) mmol/L BUN 7 L (9-20) mg/dL Glucose 190 H (75-100) mg/dL POC Glucose 185 H 197 H (70-105) mg/dL Phosphorus 0.80 L* D (2.5-4.5) mg/dL Total Protein (6.3-8.2) g/dL Albumin (3.9-5) g/dL 11/09/20 11/09/20 11/09/20 Range/Units 15:55 16:26 17:20 WBC (4.5-11.0) K/mm3 RBC (3.65-5.03) M/mm3 Hgb (11.8-15.2) gm/dl Hct (35.5-45.6) % MCV (84-94) fl MCH (28-32) pg RDW (13.2-15.2) % Sodium (137-145) mmol/L Potassium 3.2 L (3.6-5.0) mmol/L Chloride 109.4 H (98-107) mmol/L Carbon Dioxide 13 L (22-30) mmol/L BUN 7 L (9-20) mg/dL Glucose 191 H (75-100) mg/dL POC Glucose 201 H 187 H (70-105) mg/dL Phosphorus (2.5-4.5) mg/dL Total Protein 5.6 L (6.3-8.2) g/dL Albumin 3.1 L (3.9-5) g/dL 11/09/20 11/09/20 11/09/20 Range/Units 18:47 19:15 19:24 WBC (4.5-11.0) K/mm3 RBC (3.65-5.03) M/mm3 Hgb (11.8-15.2) gm/dl Hct (35.5-45.6) % MCV (84-94) fl MCH (28-32) pg RDW (13.2-15.2) % Sodium 135 L (137-145) mmol/L Potassium 3.0 L (3.6-5.0) mmol/L Chloride 108.2 H (98-107) mmol/L Carbon Dioxide 12 L (22-30) mmol/L BUN 6 L (9-20) mg/dL Glucose 236 H (75-100) mg/dL POC Glucose 210 H 246 H (70-105) mg/dL Phosphorus 0.70 L* (2.5-4.5) mg/dL Total Protein (6.3-8.2) g/dL Albumin (3.9-5) g/dL 11/09/20 11/09/20 11/09/20 Range/Units 21:02 22:08 23:17 WBC (4.5-11.0) K/mm3 RBC (3.65-5.03) M/mm3 Hgb (11.8-15.2) gm/dl Hct (35.5-45.6) % MCV (84-94) fl MCH (28-32) pg RDW (13.2-15.2) % Sodium (137-145) mmol/L Potassium (3.6-5.0) mmol/L Chloride (98-107) mmol/L Carbon Dioxide (22-30) mmol/L BUN (9-20) mg/dL Glucose (75-100) mg/dL POC Glucose 228 H 270 H 255 H (70-105) mg/dL Phosphorus (2.5-4.5) mg/dL Total Protein (6.3-8.2) g/dL Albumin (3.9-5) g/dL 07/03/21 07/04/21 07/04/21 Range/Units 23:48 01:03 02:14 WBC (4.5-11.0) K/mm3 RBC (3.65-5.03) M/mm3 Hgb (11.8-15.2) gm/dl Hct (35.5-45.6) % MCV (84-94) fl MCH (28-32) pg RDW (13.2-15.2) % Sodium (137-145) mmol/L Potassium (3.6-5.0) mmol/L Chloride (98-107) mmol/L Carbon Dioxide (22-30) mmol/L BUN (9-20) mg/dL Glucose (75-100) mg/dL POC Glucose 285 H 255 H 239 H (70-105) mg/dL Phosphorus (2.5-4.5) mg/dL Total Protein (6.3-8.2) g/dL Albumin (3.9-5) g/dL 11/10/20 11/10/20 11/10/20 Range/Units 03:03 04:27 05:26 WBC (4.5-11.0) K/mm3 RBC (3.65-5.03) M/mm3 Hgb (11.8-15.2) gm/dl Hct (35.5-45.6) % MCV (84-94) fl MCH (28-32) pg RDW (13.2-15.2) % Sodium (137-145) mmol/L Potassium (3.6-5.0) mmol/L Chloride (98-107) mmol/L Carbon Dioxide (22-30) mmol/L BUN (9-20) mg/dL Glucose (75-100) mg/dL POC Glucose 254 H 266 H 278 H (70-105) mg/dL Phosphorus (2.5-4.5) mg/dL Total Protein (6.3-8.2) g/dL Albumin (3.9-5) g/dL 11/10/20 11/10/20 11/10/20 Range/Units 06:19 08:08 08:08 WBC 13.2 H (4.5-11.0) K/mm3 RBC 5.79 H (3.65-5.03) M/mm3 Hgb 11.6 L (11.8-15.2) gm/dl Hct 35.0 L (35.5-45.6) % MCV 60 L (84-94) fl MCH 20 L (28-32) pg RDW 15.5 H (13.2-15.2) % Sodium 135 L (137-145) mmol/L Potassium (3.6-5.0) mmol/L Chloride (98-107) mmol/L Carbon Dioxide 15 L (22-30) mmol/L BUN 6 L (9-20) mg/dL Glucose 282 H (75-100) mg/dL POC Glucose 290 H (70-105) mg/dL Phosphorus (2.5-4.5) mg/dL Total Protein 5.6 L (6.3-8.2) g/dL Albumin 2.7 L (3.9-5) g/dL 11/10/20 11/10/20 Range/Units 08:14 09:16 WBC (4.5-11.0) K/mm3 RBC (3.65-5.03) M/mm3 Hgb (11.8-15.2) gm/dl Hct (35.5-45.6) % MCV (84-94) fl MCH (28-32) pg RDW (13.2-15.2) % Sodium (137-145) mmol/L Potassium (3.6-5.0) mmol/L Chloride (98-107) mmol/L Carbon Dioxide (22-30) mmol/L BUN (9-20) mg/dL Glucose (75-100) mg/dL POC Glucose 283 H 279 H (70-105) mg/dL Phosphorus (2.5-4.5) mg/dL Total Protein (6.3-8.2) g/dL Albumin (3.9-5) g/dL Medications & Allergies - Medications Allergies/Adverse Reactions: Allergies No Known Allergies Allergy (Unverified 11/07/20 12:13) Home Medications: Home Medications Medication Instructions Recorded Confirmed Last Taken Type No Known Home Medications [No 11/08/20 11/08/20 Unknown History Reported Home Medications] Active Medications: Generic Name Dose Route Start Last Admin Trade Name Freq PRN Reason Stop Dose Admin Acetaminophen 650 mg 11/10/20 10:18 Acetaminophen 325 Mg Tab PO Q6H PRN Pain, Mild (1-3) Dextrose 0 ml 11/07/20 21:00 Dextrose 50% In Water (25gm) 50 Ml Syringe IV Q30MIN PRN Hypoglycemia Protocol Dextrose 50 ml 11/10/20 10:26 Dextrose 50% In Water (25gm) 50 Ml Syringe IV Q30MIN PRN Hypoglycemia Protocol Heparin Sodium (Porcine) 5,000 unit 11/07/20 22:00 11/09/20 21:24 Heparin 5,000 Unit/1 Ml Vial SUB-Q 5,000 unit Q12HR ANKIT Administration Hydralazine HCl 10 mg 11/08/20 07:44 Hydralazine 20 Mg/1 Ml Inj IV Q4HR PRN Hypertension Potassium Cl/Dextrose/Lact Ringer's 20 meq in 1,000 mls @ 125 mls/hr 11/09/20 08:00 11/10/20 01:10 D5lr W/Kcl 20 Meq IV 125 mls/hr DIRECT ANKIT Administration Insulin Glargine 40 units 11/10/20 11:00 Insulin Glargine 100 Units/Ml SUB-Q QAMDIAB ANKIT Insulin Human Regular 0 units 11/10/20 11:00 Insulin Regular, Human 100 Units/1 Ml SUB-Q Q6H [facility] Protocol Labetalol HCl 10 mg 11/08/20 07:46 Labetalol 20 Mg/4 Ml Inj IV Q6HR PRN Hypertension HEART Score - HEART Score Troponin: Troponin T < 0.010 ng/mL (0.00-0.029) 11/07/20 14:24
[2020-11-10] MEDS ORDERED: SODIUM POLYSTYRENE 15 GM/60 ML ORAL LIQD PO ONE (10:37)
[2020-11-10] MEDS ORDERED: SODIUM CHLORIDE 0.9% 1000 ML 1,000 ML IV ONE ×2 (10:38→10:39)
[2020-11-10] MEDS ORDERED: DEXTROSE 50% IN WATER (25GM) 50 ML SYRINGE IV PRN (11:00)
[2020-11-10] MEDS ORDERED: POTASSIUM CHLORIDE ER 20 MEQ TAB PO ONE (11:00)
[2020-11-10] MEDS ORDERED: POTASSIUM CHLORIDE 20 MEQ 20 MEQ/100 ML BAG IV SCH (11:00)
[2020-11-10] MEDS ORDERED: MAGNESIUM SULFATE 4 GM/100 ML BAG IV ONE (11:00)
[2020-11-10] MEDS ORDERED: INSULIN GLARGINE 100 UNITS/ML SUB-Q SCH (11:00)
[2020-11-10] MEDS ORDERED: POTASSIUM PHOSPHATE 40 MMOL in SODIUM CHLORIDE 0.9% 500 ML 500 ML IV ONE ×2 (11:15→18:56)
[2020-11-10] MEDS: HEPARIN 5,000 UNIT/1 ML VIAL SUB-Q SCH ×2 (11:40→21:27)
[2020-11-10] MEDS: INSULIN REGULAR, HUMAN 100 UNITS/1 ML SUB-Q SCH ×3 (11:48→22:23)
[2020-11-10] MEDS: ACETAMINOPHEN 325 MG TAB PO PRN ×2 (12:07→21:22)
--- NOTE | 2020-11-10 13:25 | Progress Note ---
Assessment and Plan Assessment and plan: This is a 25 year old male with HTN and MO admitted with DKA, electrolyte imbalances Neuro: No acute distress -Aspiration/fall precautions per policy -Reorientation as needed CV: Hypertension, elevated triglycerides -IV labetalol and hydralazine as needed -Blood pressure monitor per protocol discontinued -Patient states that he does not take p.o. antihypertensives at home -11/18 lipid panel: Triglycerides 272, cholesterol 174, LDL 107, HDL 40 -Encourage lifestyle modifications Metoprolol 5 mg IV every 6 as needed for tachycardia Respiratory: Possible OHS/DOMINIQUE -Pulmonary hygiene -SPO2 monitoring -Supplemental oxygenation as needed -Outpatient PFTs and sleep study FEN/GI: DKA, Severe hypophosphatemia, hyponatremia, hypokalemia, metabolic acidosis, morbid obesity -Insulin drip discontinued 11/10/2020 40 units of Lantus and high-dose insulin sliding scale -11/08 hemoglobin A1c 16.7 -LR bolus, NS bolus x2 -MIVF LRD5@125ml/hr -Replete potassium as needed and recheck level -Replete phosphate and recheck level Replete magnesium -Nutrition consult -Dietary modifications and increasing physical activity encouraged -Trend BMP, phosphorus : NAD -Voiding into urinal Skin: No acute distress -Positional changes per protocol DVT/GI prophylaxis: Heparin subcu Lines: Right IJ TLC Dispo: ICU for now, if stable and blood sugars remain leveled and gap remains closed, transfer to the floor. The high probability of a clinically significant, sudden or life threatening deterioration of the [endo] system(s) required my full and direct attention, intervention and personal management. The aggregate critical care time was [35] minutes. This time is in addition to time spent performing reported procedures but includes the following: [x] Data Review and interpretation [x] Patient assessment and monitoring of vital signs [x] Documentation [x] Medication orders and management History Interval history: This is a 25-year-old male with HTN and morbid obesity who presented to [facility] 11/07 with complaints of severe generalized weakness, shortness of breath and increasing polyuria, polydipsia and polyphagia, SOB on minimal exertion, dry mouth, intermittent vomiting, constipation, dizziness, fatigue for approximately 2 weeks. Work-up in the emergency department revealed leukocytosis, polycythemia, hyponatremia, hypochloremia, Kussmaul's breathing on examination, Anion gap metabolic acidosis, hyperphosphatemia, hypokalemia, blood glucose of 787. Patient was admitted to the hospital service with consults to [facility] on the DKA protocol. 11/08: AG not closed, IVF changed to ND from D51/2NS with KCL. Remains on insulin gtt and npo. K replaced 11/09: AG still not closed and remains on insulin gtt. IVF changed to D5 LR. Ordered additional LR bolus. CCM ordered 2 NS bolus. 1400 BMP with repeats at 2000 and 0400. 11/10/2020: Patient's breathing is improved, no chest pain or shortness of breath. Consulted with critical care physician to transition patient off of insulin drip. Hospitalist Physical - Physical exam Narrative exam: General appearance: Obese, no acute distress, well-nourished EENT: PERRL, EOM intact, hearing intact, clear oral mucosa Neck: Present: supple, normal ROM Respiratory: bilateral CTA, negative: rales, rhonchi, wheezing Cardiovascular: Regular rate/rhythm, Normal S1 & S2. No gallop, rub Extremities: no ischemia, No edema, normal temperature, normal color, Full ROM Abdominal: soft, no tenderness, non-distended, normal bowel sounds Integumentary: Present: clear, warm, dry no wounds, no erythema noted Psychiatric: appropriate mood/affect, intact judgment & insight Neurologic: CNII-XII intact, moves all extremities, no sensory or motor abnormalities - Constitutional Vitals: Temp Pulse Resp BP Pulse Ox 98.9 F 129 H 31 H 124/35 98 11/10/20 03:44 11/10/20 11:31 11/10/20 11:31 11/10/20 11:31 11/10/20 11:31 HEART Score - HEART Score Troponin: Troponin T < 0.010 ng/mL (0.00-0.029) 11/07/20 14:24 Results - Labs CBC & Chem 7: 11/10/20 08:08 11/10/20 08:08 Labs: Laboratory Last Values WBC 13.2 K/mm3 (4.5-11.0) H 11/10/20 08:08 RBC 5.79 M/mm3 (3.65-5.03) H 11/10/20 08:08 Hgb 11.6 gm/dl (11.8-15.2) L 11/10/20 08:08 Hct 35.0 % (35.5-45.6) L 11/10/20 08:08 MCV 60 fl (84-94) L 11/10/20 08:08 MCH 20 pg (28-32) L 11/10/20 08:08 MCHC 33 % (32-34) 11/10/20 08:08 RDW 15.5 % (13.2-15.2) H 11/10/20 08:08 Plt Count 167 K/mm3 (140-440) 11/10/20 08:08 Lymph % (Auto) 7.9 % (13.4-35.0) L 11/07/20 14:24 [place] % (Auto) 10.7 % (0.0-7.3) H 11/07/20 14:24 Eos % (Auto) 0.0 % (0.0-4.3) 11/07/20 14:24 Baso % (Auto) 0.4 % (0.0-1.8) 11/07/20 14:24 Lymph # (Auto) 1.4 K/mm3 (1.2-5.4) 11/07/20 14:24 [place] # (Auto) 1.9 K/mm3 (0.0-0.8) H 11/07/20 14:24 Eos # (Auto) 0.0 K/mm3 (0.0-0.4) 11/07/20 14:24 Baso # (Auto) 0.1 K/mm3 (0.0-0.1) 11/07/20 14:24 Seg Neutrophils % 81.0 % (40.0-70.0) H 11/07/20 14:24 Seg Neutrophils # 14.1 K/mm3 (1.8-7.7) H 11/07/20 14:24 VBG pH 7.130 (7.320-7.420) L* 11/07/20 15:16 Sodium 135 mmol/L (137-145) L 11/10/20 08:08 Potassium 2.8 mmol/L (3.6-5.0) L* 11/10/20 08:08 Chloride 105.0 mmol/L (98-107) 11/10/20 08:08 Carbon Dioxide 15 mmol/L (22-30) L 11/10/20 08:08 Anion Gap 18 mmol/L 11/10/20 08:08 BUN 6 mg/dL (9-20) L 11/10/20 08:08 Creatinine 1.0 mg/dL (0.8-1.3) 11/10/20 08:08 Estimated GFR > 60 ml/min 11/10/20 08:08 BUN/Creatinine Ratio 7 % 11/10/20 08:08 Glucose 282 mg/dL (75-100) H 11/10/20 08:08 POC Glucose 216 mg/dL (70-105) H 11/10/20 12:20 Hemoglobin A1c 16.7 % (4-6) H 11/08/20 18:17 Calcium 8.8 mg/dL (8.4-10.2) 11/10/20 08:08 Phosphorus 0.70 mg/dL (2.5-4.5) L* 11/10/20 08:08 Magnesium 1.40 mg/dL (1.7-2.3) L 11/10/20 08:08 Total Bilirubin 0.40 mg/dL (0.1-1.2) 11/10/20 08:08 AST 25 units/L (5-40) 11/10/20 08:08 ALT 24 units/L (7-56) 11/10/20 08:08 Alkaline Phosphatase 104 units/L (35-129) 11/10/20 08:08 Troponin T < 0.010 ng/mL (0.00-0.029) 11/07/20 14:24 Total Protein 5.6 g/dL (6.3-8.2) L 11/10/20 08:08 Albumin 2.7 g/dL (3.9-5) L 11/10/20 08:08 Albumin/Globulin Ratio 0.9 % 11/10/20 08:08 Triglycerides 272 mg/dL (2-149) H 11/08/20 09:27 Cholesterol 174 mg/dL (50-199) 11/08/20 09:27 LDL Cholesterol Direct 107 mg/dL (50-130) 11/08/20 09:27 HDL Cholesterol 40 mg/dL (40-59) 11/08/20 09:27 Cholesterol/HDL Ratio 4.35 % 11/08/20 09:27 Urine Color Straw (Yellow) 11/07/20 17:08 Urine Turbidity Clear (Clear) 11/07/20 17:08 Urine pH 6.0 (5.0-7.0) 11/07/20 17:08 Ur Specific [place] 1.028 (1.003-1.030) 11/07/20 17:08 Urine Protein 30 mg/dl mg/dL (Negative) 11/07/20 17:08 Urine Glucose (UA) >=500 mg/dL (Negative) 11/07/20 17:08 Urine Ketones 80 mg/dL (Negative) 11/07/20 17:08 Urine Blood Mod (Negative) 11/07/20 17:08 Urine Nitrite Neg (Negative) 11/07/20 17:08 Urine Bilirubin Neg (Negative) 11/07/20 17:08 Urine Urobilinogen < 2.0 mg/dL (<2.0) 11/07/20 17:08 Ur Leukocyte Esterase Neg (Negative) 11/07/20 17:08 Urine WBC (Auto) < 1.0 /HPF (0.0-6.0) 11/07/20 17:08 Urine RBC (Auto) 1.0 /HPF (0.0-6.0) 11/07/20 17:08 U Epithel Cells (Auto) < 1.0 /HPF (0-13.0) 11/07/20 17:08 Urine Mucus Few /HPF 11/07/20 17:08 Peck/IV: Voiding Method Urinal Active Medications - Current Medications Current Medications: Generic Name Dose Route Start Last Admin Trade Name Freq PRN Reason Stop Dose Admin Acetaminophen 650 mg 11/10/20 10:18 11/10/20 12:07 Acetaminophen 325 Mg Tab PO 650 mg Q6H PRN Administration Pain, Mild (1-3) Dextrose 50 ml 11/10/20 11:00 Dextrose 50% In Water (25gm) 50 Ml Syringe IV Q30MIN PRN Hypoglycemia Protocol Heparin Sodium (Porcine) 5,000 unit 11/07/20 22:00 11/10/20 11:40 Heparin 5,000 Unit/1 Ml Vial SUB-Q 5,000 unit Q12HR ANKIT Administration Hydralazine HCl 10 mg 11/08/20 07:44 Hydralazine 20 Mg/1 Ml Inj IV Q4HR PRN Hypertension Magnesium Sulfate 4 gm in 100 mls @ 25 mls/hr 11/10/20 11:00 11/10/20 11:59 Magnesium Sulfate 4gm/100ml IV 11/10/20 14:59 25 mls/hr ONCE ONE Administration Potassium Phosphate 40 mmol/ 513.3333 mls @ 83 mls/hr 11/10/20 11:15 11/10/20 12:00 Sodium Chloride IV 11/10/20 17:26 83 mls/hr ONCE ONE Administration Insulin Glargine 40 units 11/10/20 11:00 11/10/20 11:43 Insulin Glargine 100 Units/Ml SUB-Q 40 units QAMDIAB ANKIT Administration Insulin Human Regular 0 units 11/10/20 11:00 11/10/20 11:48 Insulin Regular, Human 100 Units/1 Ml SUB-Q 6 units Q6H ANKIT Administration Protocol Labetalol HCl 10 mg 11/08/20 07:46 Labetalol 20 Mg/4 Ml Inj IV Q6HR PRN Hypertension Sodium Phosphate 250 mg 11/10/20 14:00 K-Phos Neutral 250 Mg Tab PO QID ANKIT Nutrition/Malnutrition Assess - Dietary Evaluation Nutrition/Malnutrition Findings: Nutrition Notes Start: 11/08/20 10:56 Freq: Status: Active Protocol: Document 11/08/20 10:57 [email or web address] (Rec: 11/08/20 11:01 [email or web address] [id number]) Nutrition Notes Need for Assessment generated from: MD Order,renewable energy technician,MST, Education Initial or Follow up Brief Note Current Diagnosis Diabetes,Hypertension Current Diet No diet Labs/Tests BG >600 on adm Subjective/Other Information MD consult for education. RN screen for skin risk, new DM and MST. No signs of malnutrition. Pt accepted DM diet education however, he seemed more interested in getting water. Will follow for understanding. #1 Nutrition Diagnosis Food and nutrition-related knowledge deficit Etiology no prior DM education As Evidenced by Signs and Symptoms new DM diagnosis, pt had questions about carbs Nutrition Intervention Teaching Recipient Patient Learning Readiness Fair Teaching Methods Discussion,Handout Response to Teaching Reinforcement needed Education Handouts Provided Planning Healthy Meals Nutrition Label Reading Tips Barriers to Learning Motivation RD phone number provided Yes Patient aware of follow up options Yes Goal #1 Understand consistent CHO diet Anticipated Discharge Needs: Cardiac, Consistent CHO Follow-Up By: 11/11/20 Additional Comments FU for diet education reinforcement
[2020-11-10] MEDS ORDERED: METOPROLOL TARTRATE 5 MG/5 ML INJ IV SCH (14:00)
[2020-11-10] MEDS: K-PHOS NEUTRAL 250 MG TAB PO SCH ×3 (15:24→21:30)
[2020-11-10] MEDS: METOPROLOL TARTRATE 5 MG/5 ML INJ IV PRN (16:15)
[2020-11-11] MEDS: METOPROLOL TARTRATE 5 MG/5 ML INJ IV PRN (01:42)
[2020-11-11] MEDS ORDERED: INSULIN REGULAR, HUMAN 100 UNITS/1 ML SUB-Q SCH (07:30)
[2020-11-11] MEDS ORDERED: INSULIN LISPRO 100 UNIT/ML SUB-Q ONE (08:22)
[2020-11-11] MEDS ORDERED: INSULIN GLARGINE 100 UNITS/ML SUB-Q SCH (08:32)
[2020-11-11] MEDS: LISINOPRIL 10 MG TAB PO SCH (10:10)
[2020-11-11] MEDS: HEPARIN 5,000 UNIT/1 ML VIAL SUB-Q SCH ×2 (10:10→22:56)
[2020-11-11] MEDS: METOPROLOL TARTRATE 25 MG TAB PO SCH ×2 (10:11→22:56)
[2020-11-11] MEDS: K-PHOS NEUTRAL 250 MG TAB PO SCH ×5 (11:20→22:57)
[2020-11-11] MEDS: INSULIN LISPRO 100 UNIT/ML SUB-Q SCH ×2 (11:48→17:00)
[2020-11-11] MEDS: INSULIN REGULAR, HUMAN 100 UNITS/1 ML SUB-Q SCH ×2 (11:49→17:00)
[2020-11-11] MEDS: MUPIROCIN 2% OINT 22 GM TP SCH ×2 (11:49→22:59)
[2020-11-11 11:53] LABS: BUN/Creatinine Ratio 8; Blood Urea Nitrogen 8 mg/dL (9-20); Calcium 8.5 mg/dL (8.4-10.2); Hemolysis Index 0
[2020-11-11] MEDS ORDERED: LACTATED RINGERS 1,000 ML IV ONE (12:27)
[2020-11-11] MEDS ORDERED: POTASSIUM PHOSPHATE 45 MMOL in SODIUM CHLORIDE 0.9% 500 ML 500 ML IV ONE (13:00)
[2020-11-11] MEDS: POTASSIUM CHLORIDE 20 MEQ PACKET PO SCH (13:12)
--- NOTE | 2020-11-11 16:17 | Progress Note ---
Assessment and Plan Assessment and plan: This is a 25 year old male with HTN and MO admitted with DKA, electrolyte imbalances Neuro: No acute distress -Aspiration/fall precautions per policy -Reorientation as needed CV: Hypertension, elevated triglycerides -IV labetalol and hydralazine as needed -Blood pressure monitor per protocol discontinued -Patient states that he does not take p.o. antihypertensives at home -11/18 lipid panel: Triglycerides 272, cholesterol 174, LDL 107, HDL 40 Start atorvastatin Start lisinopril -Encourage lifestyle modifications Metoprolol 25 mg twice daily for tachycardia with IV metoprolol with parameters Respiratory: Possible OHS/DOMINIQUE -Pulmonary hygiene -SPO2 monitoring -Supplemental oxygenation as needed -Outpatient PFTs and sleep study FEN/GI: DKA, Severe hypophosphatemia, hyponatremia, hypokalemia, metabolic acidosis, morbid obesity -Insulin drip discontinued 11/10/2020 40 units of Lantus, lispro 10 units 3 times daily AC, and high-dose insulin sliding scale -11/08 hemoglobin A1c 16.7 -LR bolus, NS bolus x2 -Replete potassium as needed and recheck level -Replete phosphate and recheck level Replete magnesium -Nutrition consult -Dietary modifications and increasing physical activity encouraged -Trend BMP, phosphorus : NAD -Voiding into urinal Skin: No acute distress -Scrotal wound Wound care DVT/GI prophylaxis: Heparin subcu Lines: Right IJ TLC Dispo: continue to treat for mild DKA, make adjustments to insulin as needed, patient will need a large amount of insulin, consider Lantus twice daily with AC lispro. Patient has insurance, will be able to be discharged on Lantus pens and Humalog pens. CODE STATUS: Full History Interval history: This is a 25-year-old male with HTN and morbid obesity who presented to [facility] 11/07 with complaints of severe generalized weakness, shortness of breath and increasing polyuria, polydipsia and polyphagia, SOB on minimal exertion, dry mouth, intermittent vomiting, constipation, dizziness, fatigue for approximately 2 weeks. Work-up in the emergency department revealed leukocytosis, polycythemia, hyponatremia, hypochloremia, Kussmaul's breathing on examination, Anion gap metabolic acidosis, hyperphosphatemia, hypokalemia, blood glucose of 787. Patient was admitted to the hospital service with consults to [facility] on the DKA protocol. 11/08: AG not closed, IVF changed to ND from D51/2NS with KCL. Remains on insulin gtt and npo. K replaced 11/09: AG still not closed and remains on insulin gtt. IVF changed to D5 LR. Ordered additional LR bolus. CCM ordered 2 NS bolus. 1400 BMP with repeats at 2000 and 0400. 11/10/2020: Patient's breathing is improved, no chest pain or shortness of breath. Consulted with critical care physician to transition patient off of insulin drip. 11/11/2020, patient is improved, however gap has opened again, will give fluids, increase insulin, replete electrolytes. Patient in no distress. There is an issue of a scrotal wound, wound care has been consulted. Hospitalist Physical - Physical exam Narrative exam: General appearance: Obese, no acute distress, well-nourished EENT: PERRL, EOM intact, hearing intact, clear oral mucosa Neck: Present: supple, normal ROM Respiratory: bilateral CTA, negative: rales, rhonchi, wheezing Cardiovascular: Regular rate/rhythm, Normal S1 & S2. No gallop, rub Extremities: no ischemia, No edema, normal temperature, normal color, Full ROM Abdominal: soft, no tenderness, non-distended, normal bowel sounds Integumentary: Present: clear, warm, dry no wounds, no erythema noted : 0.5 cm scrotal wound, superficial, nonbleeding. Psychiatric: appropriate mood/affect, intact judgment & insight Neurologic: CNII-XII intact, moves all extremities, no sensory or motor ab normalities - Constitutional Vitals: Temp Pulse Resp BP Pulse Ox 99.2 F 114 H 18 148/72 97 11/11/20 11:30 11/11/20 11:30 11/11/20 11:30 11/11/20 11:30 11/11/20 11:30 HEART Score - HEART Score Troponin: Troponin T < 0.010 ng/mL (0.00-0.029) 11/07/20 14:24 Results - Labs CBC & Chem 7: 11/10/20 08:08 11/11/20 11:13 Labs: Laboratory Last Values WBC 13.2 K/mm3 (4.5-11.0) H 11/10/20 08:08 RBC 5.79 M/mm3 (3.65-5.03) H 11/10/20 08:08 Hgb 11.6 gm/dl (11.8-15.2) L 11/10/20 08:08 Hct 35.0 % (35.5-45.6) L 11/10/20 08:08 MCV 60 fl (84-94) L 11/10/20 08:08 MCH 20 pg (28-32) L 11/10/20 08:08 MCHC 33 % (32-34) 11/10/20 08:08 RDW 15.5 % (13.2-15.2) H 11/10/20 08:08 Plt Count 167 K/mm3 (140-440) 11/10/20 08:08 Lymph % (Auto) 7.9 % (13.4-35.0) L 11/07/20 14:24 [place] % (Auto) 10.7 % (0.0-7.3) H 11/07/20 14:24 Eos % (Auto) 0.0 % (0.0-4.3) 11/07/20 14:24 Baso % (Auto) 0.4 % (0.0-1.8) 11/07/20 14:24 Lymph # (Auto) 1.4 K/mm3 (1.2-5.4) 11/07/20 14:24 [place] # (Auto) 1.9 K/mm3 (0.0-0.8) H 11/07/20 14:24 Eos # (Auto) 0.0 K/mm3 (0.0-0.4) 11/07/20 14:24 Baso # (Auto) 0.1 K/mm3 (0.0-0.1) 11/07/20 14:24 Seg Neutrophils % 81.0 % (40.0-70.0) H 11/07/20 14:24 Seg Neutrophils # 14.1 K/mm3 (1.8-7.7) H 11/07/20 14:24 VBG pH 7.130 (7.320-7.420) L* 11/07/20 15:16 Sodium 134 mmol/L (137-145) L 11/11/20 11:13 Potassium 2.8 mmol/L (3.6-5.0) L* 11/11/20 11:13 Chloride 99.8 mmol/L (98-107) 11/11/20 11:13 Carbon Dioxide 11 mmol/L (22-30) L 11/11/20 11:13 Anion Gap 26 mmol/L 11/11/20 11:13 BUN 8 mg/dL (9-20) L 11/11/20 11:13 Creatinine 1.0 mg/dL (0.8-1.3) 11/11/20 11:13 Estimated GFR > 60 ml/min 11/11/20 11:13 BUN/Creatinine Ratio 8 % 11/11/20 11:13 Glucose 353 mg/dL (75-100) H 11/11/20 11:13 POC Glucose 303 mg/dL (70-105) H 11/11/20 15:49 Hemoglobin A1c 16.7 % (4-6) H 11/08/20 18:17 Calcium 8.5 mg/dL (8.4-10.2) 11/11/20 11:13 Phosphorus 2.60 mg/dL (2.5-4.5) D 11/11/20 11:13 Magnesium 1.40 mg/dL (1.7-2.3) L 11/10/20 08:08 Total Bilirubin 0.40 mg/dL (0.1-1.2) 11/10/20 08:08 AST 25 units/L (5-40) 11/10/20 08:08 ALT 24 units/L (7-56) 11/10/20 08:08 Alkaline Phosphatase 104 units/L (35-129) 11/10/20 08:08 Troponin T < 0.010 ng/mL (0.00-0.029) 11/07/20 14:24 Total Protein 5.6 g/dL (6.3-8.2) L 11/10/20 08:08 Albumin 2.7 g/dL (3.9-5) L 11/10/20 08:08 Albumin/Globulin Ratio 0.9 % 11/10/20 08:08 Triglycerides 272 mg/dL (2-149) H 11/08/20 09:27 Cholesterol 174 mg/dL (50-199) 11/08/20 09:27 LDL Cholesterol Direct 107 mg/dL (50-130) 11/08/20 09:27 HDL Cholesterol 40 mg/dL (40-59) 11/08/20 09:27 Cholesterol/HDL Ratio 4.35 % 11/08/20 09:27 Urine Color Straw (Yellow) 11/07/20 17:08 Urine Turbidity Clear (Clear) 11/07/20 17:08 Urine pH 6.0 (5.0-7.0) 11/07/20 17:08 Ur Specific [place] 1.028 (1.003-1.030) 11/07/20 17:08 Urine Protein 30 mg/dl mg/dL (Negative) 11/07/20 17:08 Urine Glucose (UA) >=500 mg/dL (Negative) 11/07/20 17:08 Urine Ketones 80 mg/dL (Negative) 11/07/20 17:08 Urine Blood Mod (Negative) 11/07/20 17:08 Urine Nitrite Neg (Negative) 11/07/20 17:08 Urine Bilirubin Neg (Negative) 11/07/20 17:08 Urine Urobilinogen < 2.0 mg/dL (<2.0) 11/07/20 17:08 Ur Leukocyte Esterase Neg (Negative) 11/07/20 17:08 Urine WBC (Auto) < 1.0 /HPF (0.0-6.0) 11/07/20 17:08 Urine RBC (Auto) 1.0 /HPF (0.0-6.0) 11/07/20 17:08 U Epithel Cells (Auto) < 1.0 /HPF (0-13.0) 11/07/20 17:08 Urine Mucus Few /HPF 11/07/20 17:08 Peck/IV: Voiding Method Urinal Active Medications - Current Medications Current Medications: Generic Name Dose Route Start Last Admin Trade Name Freq PRN Reason Stop Dose Admin Acetaminophen 650 mg 11/10/20 10:18 11/10/20 21:22 Acetaminophen 325 Mg Tab PO 650 mg Q6H PRN Administration Pain, Mild (1-3) Atorvastatin Calcium 40 mg 11/11/20 22:00 Atorvastatin 40 Mg Tab PO QHS ANKIT Dextrose 50 ml 11/10/20 11:00 Dextrose 50% In Water (25gm) 50 Ml Syringe IV Q30MIN PRN Hypoglycemia Protocol Heparin Sodium (Porcine) 5,000 unit 11/07/20 22:00 11/11/20 10:10 Heparin 5,000 Unit/1 Ml Vial SUB-Q 5,000 unit Q12HR ANKIT Administration Hydralazine HCl 10 mg 11/08/20 07:44 11/11/20 04:44 Hydralazine 20 Mg/1 Ml Inj IV 10 mg Q4HR PRN Administration Hypertension Potassium Phosphate 45 mmol/ 515 mls @ 85 mls/hr 11/11/20 13:00 11/11/20 13:18 Sodium Chloride IV 11/11/20 19:03 85 mls/hr ONCE ONE Administration Insulin Glargine 40 units 11/11/20 08:32 Insulin Glargine 100 Units/Ml SUB-Q QAMDIAB ANKIT Insulin Human Lispro 10 unit 11/11/20 11:30 11/11/20 11:48 Insulin Lispro 100 Unit/Ml SUB-Q 10 unit AC [facility] Administration Insulin Human Regular 0 units 11/11/20 11:30 11/11/20 11:49 Insulin Regular, Human 100 Units/1 Ml SUB-Q 8 units AC ANKIT Administration Protocol Labetalol HCl 10 mg 11/08/20 07:46 Labetalol 20 Mg/4 Ml Inj IV Q6HR PRN Hypertension Lisinopril 10 mg 11/11/20 10:00 11/11/20 10:10 Lisinopril 10 Mg Tab PO 10 mg QDAY ANKIT Administration Metoprolol Tartrate 5 mg 11/10/20 13:26 11/11/20 01:42 Metoprolol Tartrate 5 Mg/5 Ml Inj IV 5 mg Q6HR PRN Administration Tachyarrhythmias Metoprolol Tartrate 25 mg 11/11/20 10:00 11/11/20 10:11 Metoprolol Tartrate 25 Mg Tab PO 25 mg BID ANKIT Administration Mupirocin 1 applic 11/11/20 11:00 11/11/20 11:49 Mupirocin 2% Oint 22 Gm TP 1 applic BID ANKIT Administration Potassium Chloride 40 meq 11/11/20 13:00 11/11/20 13:12 Potassium Chloride 20 Meq Packet PO 40 meq QDAY ANKIT Administration Sodium Phosphate 250 mg 11/10/20 14:00 11/11/20 15:00 K-Phos Neutral 250 Mg Tab PO 250 mg QID ANKIT Administration Nutrition/Malnutrition Assess - Dietary Evaluation Nutrition/Malnutrition Findings: Nutrition Notes Start: 11/08/20 10:56 Freq: Status: Active Protocol: Document 11/11/20 12:39 MK (Rec: 11/11/20 12:41 [id number]) Nutrition Notes Initial or Follow up Brief Note Subjective/Other Information FU for DM education. Pt main concern is limiting liquids as he likes sports drinks and oranges/orange juice. All pt questions answered. #1 Nutrition Diagnosis Food and nutrition-related knowledge deficit As Evidenced by Signs and Symptoms all questions answered Diagnosis Progress(for reassessment Resolved documentation) Nutrition Intervention Teaching Recipient Patient Learning Readiness Good Teaching Methods Discussion Response to Teaching Verbalize understanding Barriers to Learning No Barriers RD phone number provided Yes Patient aware of follow up options Yes Revisit per MD consult or patient Sign Off request:
[2020-11-11 17:59] LABS: BUN/Creatinine Ratio 8; Blood Urea Nitrogen 7 mg/dL (9-20); Calcium 7.9 mg/dL (8.4-10.2); Hemolysis Index 12
[2020-11-11] MEDS: POTASSIUM CHLORIDE 20 MEQ in LACTATED RINGERS 1,000 ML IV SCH (22:55)
[2020-11-11] MEDS: ACETAMINOPHEN 325 MG TAB PO PRN (22:57)
--- NOTE | 2020-11-12 00:20 | Progress Note ---
Assessment and Plan Imp: 1. DKA 2. DM2, new-onset 3. Metabolic acidosis 4. Morbid obesity 5. Hyponatremia 6. Possible DOMINIQUE Rec: 1. Cont. to f/u BMP to ensure full closure of anion gap; defer adjustments to insulin regimen to IMS 2. Wound care consult for scrotal complaints 3. DVT PPx; mobilize 4. Outpatient PSG needed Plan of care reviewed with patient, he understands/agrees Subjective Date of service: 11/12/20 Principal diagnosis: DKA Interval history: No events. + SOB. C/o bleeding from scrotum. No other complaints. Active Medications Acetaminophen (Acetaminophen 325 Mg Tab) 650 mg PO Q6H PRN PRN Reason: Pain, Mild (1-3) Last Admin: 11/11/20 22:57 Dose: 650 mg Documented by: Atorvastatin Calcium (Atorvastatin 40 Mg Tab) 40 mg PO QHS ANKIT Last Admin: 11/11/20 22:57 Dose: 40 mg Documented by: Dextrose (Dextrose 50% In Water (25gm) 50 Ml Syringe) 50 ml IV Q30MIN PRN; Protocol PRN Reason: Hypoglycemia Heparin Sodium (Porcine) (Heparin 5,000 Unit/1 Ml Vial) 5,000 unit SUB-Q Q12HR ANKIT Last Admin: 11/11/20 22:56 Dose: 5,000 unit Documented by: Hydralazine HCl (Hydralazine 20 Mg/1 Ml Inj) 10 mg IV Q4HR PRN PRN Reason: Hypertension Last Admin: 11/11/20 04:44 Dose: 10 mg Documented by: Potassium Chloride 20 meq/ (Lactated Ringer's) 1,010 mls @ 125 mls/hr IV DIRECT ANKIT Last Admin: 11/11/20 22:55 Dose: 125 mls/hr Documented by: Insulin Glargine (Insulin Glargine 100 Units/Ml) 40 units SUB-Q QAMDIAB ANKIT Insulin Human Lispro (Insulin Lispro 100 Unit/Ml) 10 unit SUB-Q AC [facility] Last Admin: 11/11/20 17:00 Dose: 10 unit Documented by: Insulin Human Regular (Insulin Regular, Human 100 Units/1 Ml) 0 units SUB-Q AC [facility]; Protocol Last Admin: 11/11/20 17:00 Dose: 8 units Documented by: Labetalol HCl (Labetalol 20 Mg/4 Ml Inj) 10 mg IV Q6HR PRN PRN Reason: Hypertension Lisinopril (Lisinopril 10 Mg Tab) 10 mg PO QDAY [facility] Last Admin: 11/11/20 10:10 Dose: 10 mg Documented by: Metoprolol Tartrate (Metoprolol Tartrate 5 Mg/5 Ml Inj) 5 mg IV Q6HR PRN PRN Reason: Tachyarrhythmias Last Admin: 11/11/20 01:42 Dose: 5 mg Documented by: Metoprolol Tartrate (Metoprolol Tartrate 25 Mg Tab) 25 mg PO BID [facility] Last Admin: 11/11/20 22:56 Dose: 25 mg Documented by: Mupirocin (Mupirocin 2% Oint 22 Gm) 1 applic TP BID [facility] Last Admin: 11/11/20 22:59 Dose: 1 applic Documented by: Potassium Chloride (Potassium Chloride 20 Meq Packet) 40 meq PO QDAY [facility] Last Admin: 11/11/20 13:12 Dose: 40 meq Documented by: Sodium Phosphate (K-Phos Neutral 250 Mg Tab) 250 mg PO QID [facility] Last Admin: 11/11/20 22:57 Dose: 250 mg Documented by: Objective Vital Signs - 12hr 11/11/20 11/11/20 11/11/20 15:51 16:00 20:55 Temperature 99.0 F 98.9 F Pulse Rate 125 H 102 H 114 H Respiratory 18 20 Rate Blood Pressure 153/70 155/77 O2 Sat by Pulse 100 98 Oximetry 11/11/20 22:56 Temperature Pulse Rate 100 H Respiratory Rate Blood Pressure O2 Sat by Pulse Oximetry Constitutional: no acute distress, alert, other (morbidly obese) Eyes: non-icteric ENT: oropharynx moist Neck: supple Effort: other (tachypneic, nonlabored) Ascultation: Bilateral: diminished breath sounds Cardiovascular: regular rate and rhythm (no mrg) Gastrointestinal: normoactive bowel sounds, soft, non-tender, non-distended Integumentary: other (brown drainage from scrotum) Extremities: no cyanosis, no edema, pink and warm Neurologic: normal mental status, non-focal exam, pupils equal and round Psychiatric: mood appropriate, affect normal CBC and BMP: 11/10/20 08:08 11/11/20 17:13 Abnormal lab findings: Abnormal Labs 11/07/20 11/07/20 11/07/20 14:24 14:24 14:29 WBC 17.4 H RBC 7.38 H Hgb 15.3 H Hct 48.8 H MCV 66 L MCH 21 L MCHC 31 L RDW 16.7 H Lymph % (Auto) 7.9 L [place] % (Auto) 10.7 H [place] # (Auto) 1.9 H Seg Neutrophils % 81.0 H Seg Neutrophils # 14.1 H VBG pH Sodium 129 L Potassium Chloride 87.8 L Carbon Dioxide 6 L* BUN Creatinine Glucose 787 H* POC Glucose > 600 H Hemoglobin A1c Calcium Phosphorus Magnesium Alkaline Phosphatase 156 H Total Protein Albumin Triglycerides 11/07/20 11/07/20 11/07/20 15:16 16:00 17:08 WBC RBC Hgb Hct MCV MCH MCHC RDW Lymph % (Auto) [place] % (Auto) [place] # (Auto) Seg Neutrophils % Seg Neutrophils # VBG pH 7.130 L* Sodium 124 L 126 L Potassium Chloride 89.2 L 89.4 L Carbon Dioxide 5 L* 5 L* BUN Creatinine Glucose 820 H* 797 H* POC Glucose Hemoglobin A1c Calcium Phosphorus Magnesium Alkaline Phosphatase Total Protein Albumin Triglycerides 11/07/20 11/07/20 11/07/20 19:42 21:00 21:04 WBC RBC Hgb Hct MCV MCH MCHC RDW Lymph % (Auto) [place] % (Auto) [place] # (Auto) Seg Neutrophils % Seg Neutrophils # VBG pH Sodium 131 L 131 L Potassium 3.5 L Chloride 90.2 L 96.3 L Carbon Dioxide 6 L* 3 L* BUN Creatinine 1.4 H Glucose 664 H* 577 H* POC Glucose 587 H Hemoglobin A1c Calcium Phosphorus 2.30 L D Magnesium Alkaline Phosphatase Total Protein Albumin Triglycerides 11/07/20 11/07/20 11/08/20 23:03 23:57 01:14 WBC RBC Hgb Hct MCV MCH MCHC RDW Lymph % (Auto) [place] % (Auto) [place] # (Auto) Seg Neutrophils % Seg Neutrophils # VBG pH Sodium Potassium Chloride Carbon Dioxide BUN Creatinine Glucose POC Glucose 545 H 539 H 492 H Hemoglobin A1c Calcium Phosphorus Magnesium Alkaline Phosphatase Total Protein Albumin Triglycerides 11/08/20 11/08/20 11/08/20 02:11 03:09 03:40 WBC RBC Hgb Hct MCV MCH MCHC RDW Lymph % (Auto) [place] % (Auto) [place] # (Auto) Seg Neutrophils % Seg Neutrophils # VBG pH Sodium 132 L Potassium Chloride Carbon Dioxide 6 L* BUN Creatinine Glucose 431 H POC Glucose 443 H 477 H Hemoglobin A1c Calcium Phosphorus Magnesium Alkaline Phosphatase Total Protein Albumin Triglycerides 11/08/20 11/08/20 11/08/20 04:05 05:06 06:34 WBC RBC Hgb Hct MCV MCH MCHC RDW Lymph % (Auto) [place] % (Auto) [place] # (Auto) Seg Neutrophils % Seg Neutrophils # VBG pH Sodium Potassium Chloride Carbon Dioxide BUN Creatinine Glucose POC Glucose 428 H 421 H 383 H Hemoglobin A1c Calcium Phosphorus Magnesium Alkaline Phosphatase Total Protein Albumin Triglycerides 11/08/20 11/08/20 11/08/20 08:14 09:27 09:27 WBC RBC Hgb Hct MCV MCH MCHC RDW Lymph % (Auto) [place] % (Auto) [place] # (Auto) Seg Neutrophils % Seg Neutrophils # VBG pH Sodium 136 L Potassium 3.4 L Chloride Carbon Dioxide 11 L BUN Creatinine Glucose 342 H POC Glucose 355 H Hemoglobin A1c Calcium Phosphorus Magnesium Alkaline Phosphatase Total Protein Albumin Triglycerides 272 H 11/08/20 11/08/20 11/08/20 09:29 10:45 12:26 WBC RBC Hgb Hct MCV MCH MCHC RDW Lymph % (Auto) [place] % (Auto) [place] # (Auto) Seg Neutrophils % Seg Neutrophils # VBG pH Sodium Potassium Chloride Carbon Dioxide BUN Creatinine Glucose POC Glucose 313 H 338 H 278 H Hemoglobin A1c Calcium Phosphorus Magnesium Alkaline Phosphatase Total Protein Albumin Triglycerides 11/08/20 11/08/20 11/08/20 12:45 14:56 16:24 WBC RBC Hgb Hct MCV MCH MCHC RDW Lymph % (Auto) [place] % (Auto) [place] # (Auto) Seg Neutrophils % Seg Neutrophils # VBG pH Sodium 134 L Potassium 3.2 L Chloride Carbon Dioxide 11 L BUN Creatinine Glucose 283 H POC Glucose 293 H 269 H Hemoglobin A1c Calcium Phosphorus Magnesium Alkaline Phosphatase Total Protein Albumin Triglycerides 11/08/20 11/08/20 11/08/20 17:26 18:17 18:17 WBC RBC Hgb Hct MCV MCH MCHC RDW Lymph % (Auto) [place] % (Auto) [place] # (Auto) Seg Neutrophils % Seg Neutrophils # VBG pH Sodium 135 L Potassium Chloride Carbon Dioxide 10 L BUN Creatinine Glucose 268 H POC Glucose 282 H Hemoglobin A1c 16.7 H Calcium Phosphorus Magnesium Alkaline Phosphatase Total Protein Albumin Triglycerides 11/08/20 11/08/20 11/08/20 18:17 18:35 20:16 WBC 14.2 H RBC 6.65 H Hgb Hct MCV 64 L MCH 21 L MCHC RDW 16.0 H Lymph % (Auto) [place] % (Auto) [place] # (Auto) Seg Neutrophils % Seg Neutrophils # VBG pH Sodium Potassium Chloride Carbon Dioxide BUN Creatinine Glucose POC Glucose 280 H 247 H Hemoglobin A1c Calcium Phosphorus Magnesium Alkaline Phosphatase Total Protein Albumin Triglycerides 11/08/20 11/08/20 11/08/20 20:47 21:34 22:40 WBC RBC Hgb Hct MCV MCH MCHC RDW Lymph % (Auto) [place] % (Auto) [place] # (Auto) Seg Neutrophils % Seg Neutrophils # VBG pH Sodium 131 L Potassium 3.2 L Chloride Carbon Dioxide 9 L* BUN Creatinine Glucose 226 H POC Glucose 237 H 261 H Hemoglobin A1c Calcium Phosphorus Magnesium Alkaline Phosphatase Total Protein Albumin Triglycerides 11/08/20 11/09/20 11/09/20 23:02 00:06 01:01 WBC RBC Hgb Hct MCV MCH MCHC RDW Lymph % (Auto) [place] % (Auto) [place] # (Auto) Seg Neutrophils % Seg Neutrophils # VBG pH Sodium Potassium Chloride Carbon Dioxide BUN Creatinine Glucose POC Glucose 239 H 243 H 225 H Hemoglobin A1c Calcium Phosphorus Magnesium Alkaline Phosphatase Total Protein Albumin Triglycerides 11/09/20 11/09/20 11/09/20 02:00 03:01 04:05 WBC RBC Hgb Hct MCV MCH MCHC RDW Lymph % (Auto) [place] % (Auto) [place] # (Auto) Seg Neutrophils % Seg Neutrophils # VBG pH Sodium Potassium Chloride Carbon Dioxide BUN Creatinine Glucose POC Glucose 219 H 201 H 193 H Hemoglobin A1c Calcium Phosphorus Magnesium Alkaline Phosphatase Total Protein Albumin Triglycerides 11/09/20 11/09/20 11/09/20 04:55 05:59 06:41 WBC 11.4 H RBC 6.45 H Hgb Hct MCV 62 L MCH 20 L MCHC RDW 16.0 H Lymph % (Auto) [place] % (Auto) [place] # (Auto) Seg Neutrophils % Seg Neutrophils # VBG pH Sodium Potassium Chloride Carbon Dioxide BUN Creatinine Glucose POC Glucose 231 H 233 H Hemoglobin A1c Calcium Phosphorus Magnesium Alkaline Phosphatase Total Protein Albumin Triglycerides 11/09/20 11/09/20 11/09/20 06:41 06:53 07:15 WBC RBC Hgb Hct MCV MCH MCHC RDW Lymph % (Auto) [place] % (Auto) [place] # (Auto) Seg Neutrophils % Seg Neutrophils # VBG pH Sodium 135 L 136 L Potassium 3.0 L 3.0 L Chloride Carbon Dioxide 11 L 12 L BUN Creatinine Glucose 219 H 206 H POC Glucose 229 H Hemoglobin A1c Calcium Phosphorus 0.60 L* D Magnesium Alkaline Phosphatase Total Protein Albumin 3.2 L Triglycerides 11/09/20 11/09/20 11/09/20 08:01 09:18 10:24 WBC RBC Hgb Hct MCV MCH MCHC RDW Lymph % (Auto) [place] % (Auto) [place] # (Auto) Seg Neutrophils % Seg Neutrophils # VBG pH Sodium Potassium Chloride Carbon Dioxide BUN Creatinine Glucose POC Glucose 227 H 220 H 230 H Hemoglobin A1c Calcium Phosphorus Magnesium Alkaline Phosphatase Total Protein Albumin Triglycerides 11/09/20 11/09/20 11/09/20 11:26 13:00 13:01 WBC RBC Hgb Hct MCV MCH MCHC RDW Lymph % (Auto) [place] % (Auto) [place] # (Auto) Seg Neutrophils % Seg Neutrophils # VBG pH Sodium Potassium 2.9 L* Chloride Carbon Dioxide BUN Creatinine Glucose POC Glucose 190 H 188 H Hemoglobin A1c Calcium Phosphorus Magnesium Alkaline Phosphatase Total Protein Albumin Triglycerides 11/09/20 11/09/20 11/09/20 14:34 15:03 15:10 WBC RBC Hgb Hct MCV MCH MCHC RDW Lymph % (Auto) [place] % (Auto) [place] # (Auto) Seg Neutrophils % Seg Neutrophils # VBG pH Sodium Potassium 3.0 L Chloride 110.1 H Carbon Dioxide 13 L BUN 7 L Creatinine Glucose 190 H POC Glucose 185 H 197 H Hemoglobin A1c Calcium Phosphorus 0.80 L* D Magnesium Alkaline Phosphatase Total Protein Albumin Triglycerides 11/09/20 11/09/20 11/09/20 15:55 16:26 17:20 WBC RBC Hgb Hct MCV MCH MCHC RDW Lymph % (Auto) [place] % (Auto) [place] # (Auto) Seg Neutrophils % Seg Neutrophils # VBG pH Sodium Potassium 3.2 L Chloride 109.4 H Carbon Dioxide 13 L BUN 7 L Creatinine Glucose 191 H POC Glucose 201 H 187 H Hemoglobin A1c Calcium Phosphorus Magnesium Alkaline Phosphatase Total Protein 5.6 L Albumin 3.1 L Triglycerides 11/09/20 11/09/20 11/09/20 18:47 19:15 19:24 WBC RBC Hgb Hct MCV MCH MCHC RDW Lymph % (Auto) [place] % (Auto) [place] # (Auto) Seg Neutrophils % Seg Neutrophils # VBG pH Sodium 135 L Potassium 3.0 L Chloride 108.2 H Carbon Dioxide 12 L BUN 6 L Creatinine Glucose 236 H POC Glucose 210 H 246 H Hemoglobin A1c Calcium Phosphorus 0.70 L* Magnesium Alkaline Phosphatase Total Protein Albumin Triglycerides 11/09/20 11/09/20 11/09/20 21:02 22:08 23:17 WBC RBC Hgb Hct MCV MCH MCHC RDW Lymph % (Auto) [place] % (Auto) [place] # (Auto) Seg Neutrophils % Seg Neutrophils # VBG pH Sodium Potassium Chloride Carbon Dioxide BUN Creatinine Glucose POC Glucose 228 H 270 H 255 H Hemoglobin A1c Calcium Phosphorus Magnesium Alkaline Phosphatase Total Protein Albumin Triglycerides 11/09/20 11/10/20 11/10/20 23:48 01:03 02:14 WBC RBC Hgb Hct MCV MCH MCHC RDW Lymph % (Auto) [place] % (Auto) [place] # (Auto) Seg Neutrophils % Seg Neutrophils # VBG pH Sodium Potassium Chloride Carbon Dioxide BUN Creatinine Glucose POC Glucose 285 H 255 H 239 H Hemoglobin A1c Calcium Phosphorus Magnesium Alkaline Phosphatase Total Protein Albumin Triglycerides 11/10/20 11/10/20 11/10/20 03:03 04:27 05:26 WBC RBC Hgb Hct MCV MCH MCHC RDW Lymph % (Auto) [place] % (Auto) [place] # (Auto) Seg Neutrophils % Seg Neutrophils # VBG pH Sodium Potassium Chloride Carbon Dioxide BUN Creatinine Glucose POC Glucose 254 H 266 H 278 H Hemoglobin A1c Calcium Phosphorus Magnesium Alkaline Phosphatase Total Protein Albumin Triglycerides 11/10/20 11/10/20 11/10/20 06:19 08:08 08:08 WBC RBC Hgb Hct MCV MCH MCHC RDW Lymph % (Auto) [place] % (Auto) [place] # (Auto) Seg Neutrophils % Seg Neutrophils # VBG pH Sodium Potassium Chloride Carbon Dioxide BUN Creatinine Glucose POC Glucose 290 H Hemoglobin A1c Calcium Phosphorus 0.70 L* Magnesium 1.40 L Alkaline Phosphatase Total Protein Albumin Triglycerides 11/10/20 11/10/20 11/10/20 08:08 08:08 08:14 WBC 13.2 H RBC 5.79 H Hgb 11.6 L Hct 35.0 L MCV 60 L MCH 20 L MCHC RDW 15.5 H Lymph % (Auto) [place] % (Auto) [place] # (Auto) Seg Neutrophils % Seg Neutrophils # VBG pH Sodium 135 L Potassium 2.8 L* Chloride Carbon Dioxide 15 L BUN 6 L Creatinine Glucose 282 H POC Glucose 283 H Hemoglobin A1c Calcium Phosphorus Magnesium Alkaline Phosphatase Total Protein 5.6 L Albumin 2.7 L Triglycerides 11/10/20 11/10/20 11/10/20 09:16 10:32 11:39 WBC RBC Hgb Hct MCV MCH MCHC RDW Lymph % (Auto) [place] % (Auto) [place] # (Auto) Seg Neutrophils % Seg Neutrophils # VBG pH Sodium Potassium Chloride Carbon Dioxide BUN Creatinine Glucose POC Glucose 279 H 291 H 258 H Hemoglobin A1c Calcium Phosphorus Magnesium Alkaline Phosphatase Total Protein Albumin Triglycerides 11/10/20 11/10/20 11/10/20 12:20 16:14 21:38 WBC RBC Hgb Hct MCV MCH MCHC RDW Lymph % (Auto) [place] % (Auto) [place] # (Auto) Seg Neutrophils % Seg Neutrophils # VBG pH Sodium Potassium Chloride Carbon Dioxide BUN Creatinine Glucose POC Glucose 216 H 300 H 332 H Hemoglobin A1c Calcium Phosphorus Magnesium Alkaline Phosphatase Total Protein Albumin Triglycerides 11/11/20 11/11/20 11/11/20 07:59 11:13 11:27 WBC RBC Hgb Hct MCV MCH MCHC RDW Lymph % (Auto) [place] % (Auto) [place] # (Auto) Seg Neutrophils % Seg Neutrophils # VBG pH Sodium 134 L Potassium 2.8 L* Chloride Carbon Dioxide 11 L BUN 8 L Creatinine Glucose 353 H POC Glucose 353 H 346 H Hemoglobin A1c Calcium Phosphorus Magnesium Alkaline Phosphatase Total Protein Albumin Triglycerides 11/11/20 11/11/20 11/11/20 15:49 17:13 21:22 WBC RBC Hgb Hct MCV MCH MCHC RDW Lymph % (Auto) [place] % (Auto) [place] # (Auto) Seg Neutrophils % Seg Neutrophils # VBG pH Sodium 136 L Potassium 3.2 L Chloride Carbon Dioxide 14 L BUN 7 L Creatinine Glucose 302 H POC Glucose 303 H 321 H Hemoglobin A1c Calcium 7.9 L Phosphorus Magnesium Alkaline Phosphatase Total Protein Albumin Triglycerides Chest x-ray: report reviewed, image reviewed
[2020-11-12] MEDS: POTASSIUM CHLORIDE 20 MEQ in LACTATED RINGERS 1,000 ML IV SCH ×2 (07:27→16:07)
[2020-11-12] MEDS: INSULIN LISPRO 100 UNIT/ML SUB-Q SCH ×3 (08:41→17:37)
[2020-11-12] MEDS: INSULIN REGULAR, HUMAN 100 UNITS/1 ML SUB-Q SCH ×4 (08:42→22:50)
[2020-11-12] MEDS: HEPARIN 5,000 UNIT/1 ML VIAL SUB-Q SCH ×2 (09:38→22:45)
[2020-11-12] MEDS: POTASSIUM CHLORIDE 20 MEQ PACKET PO SCH (09:38)
[2020-11-12] MEDS: K-PHOS NEUTRAL 250 MG TAB PO SCH ×4 (09:39→22:45)
[2020-11-12] MEDS: METOPROLOL TARTRATE 25 MG TAB PO SCH (09:39)
[2020-11-12] MEDS: LISINOPRIL 10 MG TAB PO SCH (09:39)
[2020-11-12] MEDS: MUPIROCIN 2% OINT 22 GM TP SCH ×2 (09:40→22:50)
[2020-11-12] MEDS ORDERED: METOPROLOL TARTRATE 25 MG TAB PO SCH (09:58)
[2020-11-12] MEDS ORDERED: LISINOPRIL 10 MG TAB PO SCH (09:58)
[2020-11-12 11:18] LABS: Hematocrit 33.4 % (35.5-45.6); Hemoglobin 11.3 gm/dl (11.8-15.2); Mean Corpuscular HGB Conc 34 % (32-34); Platelet Count 135 K/mm3 (140-440); Red Blood Count 5.48 M/mm3 (3.65-5.03); Red Cell Distribution Width 16.2 % (13.2-15.2)
[2020-11-12 11:20] LABS: Mean Corpuscular Volume 61 fl (84-94)
[2020-11-12 11:34] LABS: BUN/Creatinine Ratio 7; Blood Urea Nitrogen 6 mg/dL (9-20); Calcium 8.3 mg/dL (8.4-10.2); Hemolysis Index 1
[2020-11-12] MEDS ORDERED: POTASSIUM CHLORIDE ER 20 MEQ TAB PO NR (12:00)
[2020-11-12] MEDS: METOPROLOL TARTRATE 50 MG TAB PO SCH ×2 (12:05→22:45)
[2020-11-12] MEDS: LISINOPRIL 20 MG TAB PO SCH (12:05)
[2020-11-12] MEDS: CLINDAMYCIN 600 MG/50 mL 600 MG/50 ML BAG IV SCH ×2 (14:43→22:45)
--- NOTE | 2020-11-12 17:02 | Progress Note ---
Assessment and Plan DKA, Severe hypophosphatemia, hyponatremia, hypokalemia, metabolic acidosis, morbid obesity -Insulin drip discontinued 11/10/2020 40 units of Lantus, lispro 10 units 3 times daily AC, and high-dose insulin sliding scale -11/08 hemoglobin A1c 16.7 -LR bolus, NS bolus x2 -Replete potassium as needed and recheck level -Replete phosphate and recheck level Replete magnesium -Nutrition consult -Dietary modifications and increasing physical activity encouraged -Trend BMP, phosphorus Hypertension with elevated triglycerides -IV labetalol and hydralazine as needed -Blood pressure monitor per protocol discontinued -Patient states that he does not take p.o. antihypertensives at home -11/18 lipid panel: Triglycerides 272, cholesterol 174, LDL 107, HDL 40 Start atorvastatin Start lisinopril -Encourage lifestyle modifications Metoprolol 25 mg twice daily for tachycardia with IV metoprolol with parameters Possible OHS/DOMINIQUE -Pulmonary hygiene -SPO2 monitoring -Supplemental oxygenation as needed -Outpatient PFTs and sleep study Possible scrotal abscess with sepsis, likely present on admission -Voiding into urinal -Scrotal ultrasound, initiate antibiotics and consult surgery -Consult ID for antibiotic recommendation Skin: No acute distress -Scrotal wound Wound care DVT/GI prophylaxis: Heparin subcu Dispo: continue to treat for mild DKA, sepsis with scrotal abscess make adjustments to insulin as needed, patient will need a large amount of insulin, consider Lantus twice daily with AC lispro. Patient has insurance, will be able to be discharged on Lantus pens and Humalog pens. CODE STATUS: Full Brief history: This is a 25-year-old male with HTN and morbid obesity who presented [facility] with complaints of severe generalized weakness, shortness of breath and increasing polyuria, polydipsia and polyphagia, SOB on minimal exertion, dry mouth, intermittent vomiting, constipation, dizziness, fatigue for approximately 2 weeks. Work-up in the emergency department revealed leukocytosis, polycyth emia, hyponatremia, hypochloremia, Kussmaul's breathing on examination, Anion gap metabolic acidosis, hyperphosphatemia, hypokalemia, blood glucose of 787. Patient was admitted to the hospital service with consults to CCM on the DKA protocol. Daily clinical course: 11/08: AG not closed, IVF changed to ND from D51/2NS with KCL. Remains on insulin gtt and npo. K replaced 11/09: AG still not closed and remains on insulin gtt. IVF changed to D5 LR. Ordered additional LR bolus. [facility] ordered 2 NS bolus. 1400 BMP with repeats at 2000 and 0400. 11/10/2020: Patient's breathing is improved, no chest pain or shortness of breath. Consulted with critical care physician to transition patient off of insulin drip. 11/11/2020, patient is improved, however gap has opened again, will give fluids, increase insulin, replete electrolytes. Patient in no distress. There is an issue of a scrotal wound, wound care has been consulted. 11/12/20; blood glucose around 300 today. Patient noted to have purulent drainage from the left groin and scrotum area. Spiking fever with elevated white count. Will initiate empiric antibiotic, will order scrotal ultrasound and will also consult general surgery. Replete potassium. Subjective Date of service: 11/12/20 Principal diagnosis: DKA Objective - Exam Narrative Exam: GENERAL: well-developed morbidly obese -[place] male lying on bed appeared to be in no discomfort. HEENT: Normocephalic. Atraumatic. No conjunctival congestion or icterus. Patient has moist mucous membranes. NECK: Supple. Trachea midline. CHEST/LUNGS: Clear to auscultated bilaterally, breathing nonlabored. No wheezes crackles or rhonchi. HEART/CARDIOVASCULAR: Regular in rate and rhythm. S1 and S2 positive. ABDOMEN: Abdomen is soft, nontender. Patient has normal bowel sounds. SKIN: There is no rash. Warm and dry. NEURO: No focal motor deficit. Follows command. MUSCULOSKELETAL: No joint effusion or tenderness. EXTRIMITY: No edema, no cyanosis or clubbing. : There is a slightly tender, non-fluctuant, superficial left scrotal nodule without significant associated cellulitis or induration.) PSYCH: Cooperative. - Constitutional Vitals: Vital Signs - 12hr 11/12/20 11/12/20 11/12/20 08:00 08:20 09:39 Temperature 100.7 F H Pulse Rate 108 H 115 H 108 H Pulse Rate [ From Monitor] Respiratory 20 Rate Blood Pressure 151/73 150/60 O2 Sat by Pulse 99 Oximetry 11/12/20 11/12/20 11/12/20 10:00 11:26 12:05 Temperature 98.0 F Pulse Rate 119 H 119 H Pulse Rate [ 113 H From Monitor] Respiratory 17 18 Rate Blood Pressure 145/79 145/79 O2 Sat by Pulse 97 94 Oximetry - Labs CBC & Chem 7: 11/13/20 04:38 11/14/20 05:52 Labs: Abnormal lab results 11/11/20 11/11/20 11/12/20 Range/Units 17:13 21:22 08:18 WBC (4.5-11.0) K/mm3 RBC (3.65-5.03) M/mm3 Hgb (11.8-15.2) gm/dl Hct (35.5-45.6) % MCV (84-94) fl MCH (28-32) pg RDW (13.2-15.2) % Plt Count (140-440) K/mm3 Sodium 136 L (137-145) mmol/L Potassium 3.2 L (3.6-5.0) mmol/L Chloride (98-107) mmol/L Carbon Dioxide 14 L (22-30) mmol/L BUN 7 L (9-20) mg/dL Glucose 302 H (75-100) mg/dL POC Glucose 321 H 284 H (70-105) mg/dL Calcium 7.9 L (8.4-10.2) mg/dL 11/12/20 11/12/20 11/12/20 Range/Units 10:57 10:57 11:25 WBC 13.4 H (4.5-11.0) K/mm3 RBC 5.48 H (3.65-5.03) M/mm3 Hgb 11.3 L (11.8-15.2) gm/dl Hct 33.4 L (35.5-45.6) % MCV 61 L (84-94) fl MCH 21 L (28-32) pg RDW 16.2 H (13.2-15.2) % Plt Count 135 L (140-440) K/mm3 Sodium 133 L (137-145) mmol/L Potassium 3.1 L (3.6-5.0) mmol/L Chloride 96.1 L (98-107) mmol/L Carbon Dioxide 17 L (22-30) mmol/L BUN 6 L (9-20) mg/dL Glucose 324 H (75-100) mg/dL POC Glucose 303 H (70-105) mg/dL Calcium 8.3 L (8.4-10.2) mg/dL HEART Score - HEART Score Troponin: Troponin T < 0.010 ng/mL (0.00-0.029) 11/07/20 14:24
--- NOTE | 2020-11-12 17:04 | Ultrasound Report ---
ULTRASOUND SCROTUM INDICATION / CLINICAL INFORMATION: Abscess. Palpable mass left side. COMPARISON: None available. FINDINGS -- RIGHT: TESTIS: Size = 3.8 cm. - Appearance: Heterogeneous. - Cyst / Mass: None. - Color Doppler Flow: Present. No significant abnormality. EPIDIDYMIS: Heterogeneous. HYDROCELE: None. VARICOCELE: None demonstrated. FINDINGS -- LEFT: TESTIS: Size = 3.1 cm. - Appearance: No significant abnormality. - Cyst / Mass: None. - Color Doppler Flow: Present. No significant abnormality. EPIDIDYMIS: No significant abnormality. HYDROCELE: None. VARICOCELE: None demonstrated. ADDITIONAL FINDINGS: Within the superficial left scrotum there is a 9 x 4 x 9 mm complex collection, concerning for phlegmon. Mild subcutaneous edema left scrotum characteristic for cellulitis. This is located in the area of the patient's wound. IMPRESSION: 1. Normal color Doppler blood flow is present bilaterally. No evidence of testicular torsion. 2. Overlying cellulitis left scrotum with 9 mm complex fluid collection within the superficial tissue s of the left scrotum, concerning for phlegmon Scribed by: Rola Alex RDMS Jyoti Scribed: 11/12/2020 3:47 PM I have reviewed the images, agree with this report, and edited this report as needed. Signer Name: Tera Murray MD Signed: 11/12/2020 5:00 PM Workstation Name: [id number]
[2020-11-12] MEDS: ACETAMINOPHEN 325 MG TAB PO PRN (17:38)
[2020-11-13] MEDS: ACETAMINOPHEN 325 MG TAB PO PRN ×2 (00:03→23:40)
[2020-11-13] MEDS ORDERED: guaiFENesin 100 MG/5 ML ORAL LIQD PO PRN (00:51)
[2020-11-13 05:00] LABS: Hematocrit 33.8 % (35.5-45.6); Hemoglobin 11.3 gm/dl (11.8-15.2); Mean Corpuscular HGB Conc 33 % (32-34); Platelet Count 137 K/mm3 (140-440); Red Blood Count 5.58 M/mm3 (3.65-5.03); Red Cell Distribution Width 16.1 % (13.2-15.2)
[2020-11-13 05:14] LABS: Mean Corpuscular Volume 61 fl (84-94)
[2020-11-13 05:23] LABS: BUN/Creatinine Ratio 8; Blood Urea Nitrogen 6 mg/dL (9-20); Calcium 8.6 mg/dL (8.4-10.2); Hemolysis Index 3
[2020-11-13 06:24] LABS: Total Cells Counted 100
[2020-11-13 06:25] LABS: Band Neutrophils # (Manual) 0.9 K/mm3
[2020-11-13 06:26] LABS: Anisocytosis 1+; Giant Platelets Rare; Hypochromasia 1+; Platelet Estimate Consistent w Auto; Target Cells Rare
[2020-11-13] MEDS: CLINDAMYCIN 600 MG/50 mL 600 MG/50 ML BAG IV SCH (06:55)
[2020-11-13] MEDS: INSULIN LISPRO 100 UNIT/ML SUB-Q SCH ×3 (08:58→18:18)
[2020-11-13] MEDS: INSULIN GLARGINE 100 UNITS/ML SUB-Q SCH (08:58)
[2020-11-13] MEDS: INSULIN REGULAR, HUMAN 100 UNITS/1 ML SUB-Q SCH ×4 (09:00→22:27)
[2020-11-13] MEDS ORDERED: POTASSIUM CHLORIDE ER 20 MEQ TAB PO ONE (10:19)
--- NOTE | 2020-11-13 10:39 | Consultation ---
History of Present Illness Consult date: 11/13/20 Chief complaint: Possible left scrotal abscess - History of present illness History of present illness: 25 yo morbidly obese male with minimal left scrotal tenderness. No h/o fever or chills. He is a newly diagnosed diabetic. Medications and Allergies Allergies Allergy/AdvReac Type Severity Reaction Status Date / Time No Known Allergies Allergy Unverified 11/07/20 12:13 Home Medications Medication Instructions Recorded Confirmed Last Taken Type No Known Home Medications [No 11/08/20 11/08/20 Unknown History Reported Home Medications] Active Meds: Active Medications Acetaminophen (Acetaminophen 325 Mg Tab) 650 mg PO Q6H PRN PRN Reason: Pain, Mild (1-3) Last Admin: 11/13/20 00:03 Dose: 650 mg Documented by: Atorvastatin Calcium (Atorvastatin 40 Mg Tab) 40 mg PO QHS ANKIT Last Admin: 11/12/20 22:45 Dose: 40 mg Documented by: Dextrose (Dextrose 50% In Water (25gm) 50 Ml Syringe) 50 ml IV Q30MIN PRN; Protocol PRN Reason: Hypoglycemia Guaifenesin (Guaifenesin 100 Mg/5 Ml Oral Liqd) 200 mg PO Q4H PRN PRN Reason: Cough Last Admin: 11/13/20 02:51 Dose: 200 mg Documented by: Heparin Sodium (Porcine) (Heparin 5,000 Unit/1 Ml Vial) 5,000 unit SUB-Q Q12HR ANKIT Last Admin: 11/12/20 22:45 Dose: 5,000 unit Documented by: Hydralazine HCl (Hydralazine 20 Mg/1 Ml Inj) 10 mg IV Q4HR PRN PRN Reason: Hypertension Last Admin: 11/11/20 04:44 Dose: 10 mg Documented by: Potassium Chloride 20 meq/ (Lactated Ringer's) 1,010 mls @ 125 mls/hr IV DIRECT ANKIT Last Admin: 11/12/20 16:07 Dose: 125 mls/hr Documented by: Clindamycin HCl (Cleocin 600 Mg/50 Ml) 600 mg in 50 mls @ 100 mls/hr IV Q8HR ANKIT; Protocol Last Admin: 11/13/20 06:55 Dose: 100 mls/hr Documented by: Potassium Chloride (Kcl 10meq/100ml) 10 meq in 100 mls @ 100 mls/hr IV Q1H ANKIT Stop: 11/13/20 13:59 Insulin Glargine (Insulin Glargine 100 Units/Ml) 45 units SUB-Q QAMDIAB [facility] Last Admin: 11/13/20 08:58 Dose: 45 units Documented by: Insulin Human Lispro (Insulin Lispro 100 Unit/Ml) 10 unit SUB-Q AC [facility] Last Admin: 11/13/20 08:58 Dose: 10 unit Documented by: Insulin Human Regular (Insulin Regular, Human 100 Units/1 Ml) 0 units SUB-Q ACHS [facility]; Protocol Last Admin: 11/13/20 09:00 Dose: Not Given Documented by: Labetalol HCl (Labetalol 20 Mg/4 Ml Inj) 10 mg IV Q6HR PRN PRN Reason: Hypertension Lisinopril (Lisinopril 20 Mg Tab) 20 mg PO QDAY [facility] Last Admin: 11/12/20 12:05 Dose: 20 mg Documented by: Metoprolol Tartrate (Metoprolol Tartrate 5 Mg/5 Ml Inj) 5 mg IV Q6HR PRN PRN Reason: Tachyarrhythmias Last Admin: 11/11/20 01:42 Dose: 5 mg Documented by: Metoprolol Tartrate (Metoprolol Tartrate 50 Mg Tab) 50 mg PO BID [facility] Last Admin: 11/12/20 22:45 Dose: 50 mg Documented by: Mupirocin (Mupirocin 2% Oint 22 Gm) 1 applic TP BID [facility] Last Admin: 11/12/20 22:50 Dose: 1 applic Documented by: Potassium Chloride (Potassium Chloride 20 Meq Packet) 40 meq PO QDAY [facility] Last Admin: 11/12/20 09:38 Dose: 40 meq Documented by: Potassium Chloride (Potassium Chloride Er 20 Meq Tab) 40 meq PO ONCE ONE Stop: 11/13/20 10:20 Sodium Phosphate (K-Phos Neutral 250 Mg Tab) 250 mg PO QID [facility] Last Admin: 11/12/20 22:45 Dose: 250 mg Documented by: Review of Systems All systems: negative (none) Exam Vital Signs Pulse Resp BP Pulse Ox 124 H 22 169/93 98 11/07/20 12:18 11/07/20 12:18 11/07/20 12:18 11/07/20 12:18 - General physical appearance Positive: well developed, well nourished, no distress, no pain, obese - Eyes Positive: PERRL, normal occular movement - ENT Positive: normal pinna, normal nares, normal mucosa, no hearing loss, no congestion - Neck Positive: no masses, no bruits, trachea midline, no venous distension - Respiratory Positive: normal expansion, normal respiratory effort, clear to auscultation - Cardiovascular Rhythm: regular Heart Sounds: Present: S1 & S2. Absent: rub, click - Extremities Extremities: no ischemia, pulses symmetrical, No edema - Breasts Breasts: normal, no mass, no skin changes - Abdomen Abdomen: Present: soft, bowel sounds normal. Absent: tender, distended Hernia: none - Genitourinary Male Genitourinary: scrotal edema (No significant scrotal edema. There is a slightly tender, non-fluctuant, superficial left scrotal nodule without significant associated cellulitis or induration.) Female Genitourinary: normal - Integumentary no rash, no growths, no abnormal pigmentation - Neurologic Neurologic: alert and oriented to time, place and person, motor strength and sensation are grossly intact - Musculoskeletal normal gait, normal posture - Psychiatric Psychiatric: appropriate mood/affect, intact judgment & insight Results - Labs 11/13/20 04:38 11/13/20 04:38 Abnormal lab results 11/12/20 11/12/20 11/12/20 Range/Units 10:57 10:57 11:25 WBC 13.4 H (4.5-11.0) K/mm3 RBC 5.48 H (3.65-5.03) M/mm3 Hgb 11.3 L (11.8-15.2) gm/dl Hct 33.4 L (35.5-45.6) % MCV 61 L (84-94) fl MCH 21 L (28-32) pg RDW 16.2 H (13.2-15.2) % Plt Count 135 L (140-440) K/mm3 Monocytes % (Manual) (0.0-7.3) % Seg Neutrophils # Man (1.8-7.7) K/mm3 Monocytes # (Manual) (0.0-0.8) K/mm3 Sodium 133 L (137-145) mmol/L Potassium 3.1 L (3.6-5.0) mmol/L Chloride 96.1 L (98-107) mmol/L Carbon Dioxide 17 L (22-30) mmol/L BUN 6 L (9-20) mg/dL Glucose 324 H (75-100) mg/dL POC Glucose 303 H (70-105) mg/dL Calcium 8.3 L (8.4-10.2) mg/dL 11/12/20 11/12/20 11/13/20 Range/Units 17:07 20:14 04:38 WBC 15.6 H (4.5-11.0) K/mm3 RBC 5.58 H (3.65-5.03) M/mm3 Hgb 11.3 L (11.8-15.2) gm/dl Hct 33.8 L (35.5-45.6) % MCV 61 L (84-94) fl MCH 20 L (28-32) pg RDW 16.1 H (13.2-15.2) % Plt Count 137 L (140-440) K/mm3 Monocytes % (Manual) 19.0 H (0.0-7.3) % Seg Neutrophils # Man 8.9 H (1.8-7.7) K/mm3 Monocytes # (Manual) 3.0 H (0.0-0.8) K/mm3 Sodium (137-145) mmol/L Potassium (3.6-5.0) mmol/L Chloride (98-107) mmol/L Carbon Dioxide (22-30) mmol/L BUN (9-20) mg/dL Glucose (75-100) mg/dL POC Glucose 320 H 267 H (70-105) mg/dL Calcium (8.4-10.2) mg/dL 11/13/20 11/13/20 Range/Units 04:38 08:04 WBC (4.5-11.0) K/mm3 RBC (3.65-5.03) M/mm3 Hgb (11.8-15.2) gm/dl Hct (35.5-45.6) % MCV (84-94) fl MCH (28-32) pg RDW (13.2-15.2) % Plt Count (140-440) K/mm3 Monocytes % (Manual) (0.0-7.3) % Seg Neutrophils # Man (1.8-7.7) K/mm3 Monocytes # (Manual) (0.0-0.8) K/mm3 Sodium 134 L (137-145) mmol/L Potassium 2.7 L* (3.6-5.0) mmol/L Chloride (98-107) mmol/L Carbon Dioxide 21 L (22-30) mmol/L BUN 6 L (9-20) mg/dL Glucose 239 H (75-100) mg/dL POC Glucose 255 H (70-105) mg/dL Calcium (8.4-10.2) mg/dL Diabetes panel 11/12/20 11/13/20 Range/Units 10:57 04:38 Sodium 133 L 134 L (137-145) mmol/L Potassium 3.1 L 2.7 L* (3.6-5.0) mmol/L Chloride 96.1 L 98.4 (98-107) mmol/L Carbon Dioxide 17 L 21 L (22-30) mmol/L BUN 6 L 6 L (9-20) mg/dL Creatinine 0.9 0.8 (0.8-1.3) mg/dL Glucose 324 H 239 H (75-100) mg/dL Calcium 8.3 L 8.6 (8.4-10.2) mg/dL Calcium panel 11/12/20 11/13/20 Range/Units 10:57 04:38 Calcium 8.3 L 8.6 (8.4-10.2) mg/dL Pituitary panel 11/12/20 11/13/20 Range/Units 10:57 04:38 Sodium 133 L 134 L (137-145) mmol/L Potassium 3.1 L 2.7 L* (3.6-5.0) mmol/L Chloride 96.1 L 98.4 (98-107) mmol/L Carbon Dioxide 17 L 21 L (22-30) mmol/L BUN 6 L 6 L (9-20) mg/dL Creatinine 0.9 0.8 (0.8-1.3) mg/dL Glucose 324 H 239 H (75-100) mg/dL Calcium 8.3 L 8.6 (8.4-10.2) mg/dL Adrenal panel 11/12/20 11/13/20 Range/Units 10:57 04:38 Sodium 133 L 134 L (137-145) mmol/L Potassium 3.1 L 2.7 L* (3.6-5.0) mmol/L Chloride 96.1 L 98.4 (98-107) mmol/L Carbon Dioxide 17 L 21 L (22-30) mmol/L BUN 6 L 6 L (9-20) mg/dL Creatinine 0.9 0.8 (0.8-1.3) mg/dL Glucose 324 H 239 H (75-100) mg/dL Calcium 8.3 L 8.6 (8.4-10.2) mg/dL Assessment and Plan - Patient Problems (1) Scrotal abscess Current Visit: Yes Status: Acute Plan to address problem: 1) IV antibiotics 2) Surgical I&D is not indicated at this time. 3) Strict control of DM
[2020-11-13] MEDS: K-PHOS NEUTRAL 250 MG TAB PO SCH ×4 (11:48→22:08)
[2020-11-13] MEDS: POTASSIUM CHLORIDE 20 MEQ PACKET PO SCH (11:49)
[2020-11-13] MEDS: LISINOPRIL 20 MG TAB PO SCH (11:49)
[2020-11-13] MEDS: HEPARIN 5,000 UNIT/1 ML VIAL SUB-Q SCH ×2 (11:49→22:08)
[2020-11-13] MEDS: METOPROLOL TARTRATE 50 MG TAB PO SCH ×2 (11:49→22:08)
[2020-11-13] MEDS: MUPIROCIN 2% OINT 22 GM TP SCH ×2 (11:50→22:23)
[2020-11-13] MEDS: POTASSIUM CHLORIDE 10 MEQ 10 MEQ/100 ML BAG IV SCH ×3 (11:52→22:25)
[2020-11-13] MEDS: POTASSIUM CHLORIDE 20 MEQ in LACTATED RINGERS 1,000 ML IV SCH ×3 (12:33→18:43)
--- NOTE | 2020-11-13 16:30 | Cat Scan Report ---
CT HEAD WITHOUT CONTRAST INDICATION / CLINICAL INFORMATION: possible CVA. TECHNIQUE: Axial imaging performed from the skull apex through the skull base without the use of cont rast. Sagittal and coronal reformatted images. All CT scans at this location are performed using CT dose reduction for ALARA by means of automated exposure control. COMPARISON: None available. FINDINGS: CEREBRAL PARENCHYMA: No significant abnormality. No acute territorial infarct. HEMORRHAGE: None. EXTRA-AXIAL SPACES: Normal in size and morphology for the patient's age. VENTRICULAR SYSTEM: Normal in size and morphology for the patient's age. MIDLINE SHIFT OR HERNIATION: None. CEREBELLUM / BRAINSTEM: No significant abnormality. CALVARIUM: No significant abnormality. ORBITS: Normal as visualized. PARANASAL SINUSES / MASTOID AIR CELLS: Normal as visualized. SOFT TISSUES of HEAD: No significant abnormality. ADDITIONAL FINDINGS: None. IMPRESSION: No acute intracranial abnormality. Signer Name: Lele Ro Jr, MD Signed: 11/13/2020 4:26 PM Workstation Name: [id number]
--- NOTE | 2020-11-13 16:51 | Progress Note ---
Assessment and Plan This is a 25 year old male with HTN and MO admitted with DKA, electrolyte imbalances DKA, Severe hypophosphatemia, hyponatremia, hypokalemia, metabolic acidosis, morbid obesity -Insulin drip discontinued 11/10/2020 40 units of Lantus, lispro 10 units 3 times daily AC, and high-dose insulin sliding scale -11/08 hemoglobin A1c 16.7 -LR bolus, NS bolus x2 -Replete potassium as needed and recheck level -Replete phosphate and recheck level Replete magnesium -Nutrition consult -Dietary modifications and increasing physical activity encouraged -Trend BMP, phosphorus Hypertension with elevated triglycerides -IV labetalol and hydralazine as needed -Blood pressure monitor per protocol discontinued -Patient states that he does not take p.o. antihypertensives at home -11/18 lipid panel: Triglycerides 272, cholesterol 174, LDL 107, HDL 40 Continue atorvastatin and lisinopril -Encourage lifestyle modifications Metoprolol 25 mg twice daily for tachycardia with IV metoprolol with parameters Possible OHS/DOMINIQUE -Pulmonary hygiene -SPO2 monitoring -Supplemental oxygenation as needed -Outpatient PFTs and sleep study Possible scrotal abscess/colitis with sepsis, likely present from admission -Voiding into urinal -Scrotal ultrasound, initiate antibiotics and consult surgery -Consult ID for antibiotic recommendation Acute diarrhea, started from yesterday -Change IV clindamycin to IV Rocephin and Flagyl -Send stool for WBC count Skin: No acute distress -Scrotal wound Wound care DVT/GI prophylaxis: Heparin subcu Dispo: Continue to treat for uncontrolled diabetes mellitus type 2 with DKA, sepsis. Wait for ID recommendation, continue to replete potassium, monitor BMP CODE STATUS: Full History Interval history: This is a 25-year-old male with HTN and morbid obesity who presented to [facility] 11/07 with complaints of severe generalized weakness, shortness of breath and increasing polyuria, polydipsia and polyphagia, SOB on minimal exertion, dry mouth, intermittent vomiting, constipation, dizziness, fatigue for approximately 2 weeks. Work-up in the emergency department revealed leukocytosis, polycythemia, hyponatremia, hypochloremia, Kussmaul's breathing on examination, Anion gap metabolic acidosis, hyperphosphatemia, hypokalemia, blood glucose of 787. Patient was admitted to the hospital service with consults to [facility]CM on the DKA protocol. 11/08: AG not closed, IVF changed to ND from D51/2NS with KCL. Remains on insulin gtt and npo. K replaced 11/09: AG still not closed and remains on insulin gtt. IVF changed to D5 LR. Ordered additional LR bolus. [facility] ordered 2 NS bolus. 1400 BMP with repeats at 2000 and 0400. 11/10/2020: Patient's breathing is improved, no chest pain or shortness of breath. Consulted with critical care physician to transition patient off of insulin drip. 11/11/2020, patient is improved, however gap has opened again, will give fluids, increase insulin, replete electrolytes. Patient in no distress. There is an issue of a scrotal wound, wound care has been consulted. 11/12/20; blood glucose around 300 today. Patient noted to have purulent drainage from the left groin and scrotum area. Spiking fever with elevated white count. Will initiate empiric antibiotic, will order scrotal ultrasound and will also consult general surgery. Replete potassium. 11/13/20: Patient developed acute diarrhea since yesterday. Potassium level dropped to 2.7 today. Continue to replete potassium. Magnesium and phosphorus level has been normal. Stop clindamycin will change antibiotic to Unasyn pending placement. Consult ID. Wait for culture result. Surgery recommended no surgical intervention necessary for scrotal abscess. Continue long-acting and sliding scale insulin. Patient does complains of right hand numbness. Will order for a CT head Subjective Date of service: 11/13/20 Principal diagnosis: DKA Interval history: Patient seen and examined. Medical records and medication list reviewed. No acute event overnight noted by the RN. Complaints of generalized weakness, acute diarrhea since yesterday, muscle cramping and right hand numbness Discussed plan of care at bedside with patient. Objective - Exam Narrative Exam: GENERAL: well-developed morbidly obese -[place] male lying on bed appeared to be in no discomfort. HEENT: Normocephalic. Atraumatic. No conjunctival congestion or icterus. Patient has moist mucous membranes. NECK: Supple. Trachea midline. CHEST/LUNGS: Clear to auscultated bilaterally, breathing nonlabored. No wheezes crackles or rhonchi. HEART/CARDIOVASCULAR: Regular in rate and rhythm. S1 and S2 positive. ABDOMEN: Abdomen is soft, nontender. Patient has normal bowel sounds. SKIN: There is no rash. Warm and dry. NEURO: No focal motor deficit. Follows command. MUSCULOSKELETAL: No joint effusion or tenderness. EXTRIMITY: No edema, no cyanosis or clubbing. : There is a slightly tender, non-fluctuant, superficial left scrotal nodule without significant associated cellulitis or induration.) PSYCH: Cooperative. - Constitutional Vitals: Vital Signs - 12hr 11/13/20 11/13/20 11/13/20 08:00 08:06 10:00 Temperature 98.6 F Pulse Rate 119 H 110 H Respiratory 18 30 H Rate Blood Pressure 129/63 O2 Sat by Pulse 92 94 Oximetry 11/13/20 11/13/20 11/13/20 11:49 12:00 16:00 Temperature Pulse Rate 118 H 111 H 118 H Respiratory Rate Blood Pressure O2 Sat by Pulse Oximetry - Labs CBC & Chem 7: 11/13/20 04:38 11/14/20 05:52 Labs: Abnormal lab results 11/12/20 11/12/20 11/13/20 Range/Units 17:07 20:14 04:38 WBC 15.6 H (4.5-11.0) K/mm3 RBC 5.58 H (3.65-5.03) M/mm3 Hgb 11.3 L (11.8-15.2) gm/dl Hct 33.8 L (35.5-45.6) % MCV 61 L (84-94) fl MCH 20 L (28-32) pg RDW 16.1 H (13.2-15.2) % Plt Count 137 L (140-440) K/mm3 Monocytes % (Manual) 19.0 H (0.0-7.3) % Seg Neutrophils # Man 8.9 H (1.8-7.7) K/mm3 Monocytes # (Manual) 3.0 H (0.0-0.8) K/mm3 Sodium (137-145) mmol/L Potassium (3.6-5.0) mmol/L Carbon Dioxide (22-30) mmol/L BUN (9-20) mg/dL Glucose (75-100) mg/dL POC Glucose 320 H 267 H (70-105) mg/dL 11/13/20 11/13/20 11/13/20 Range/Units 04:38 08:04 12:04 WBC (4.5-11.0) K/mm3 RBC (3.65-5.03) M/mm3 Hgb (11.8-15.2) gm/dl Hct (35.5-45.6) % MCV (84-94) fl MCH (28-32) pg RDW (13.2-15.2) % Plt Count (140-440) K/mm3 Monocytes % (Manual) (0.0-7.3) % Seg Neutrophils # Man (1.8-7.7) K/mm3 Monocytes # (Manual) (0.0-0.8) K/mm3 Sodium 134 L (137-145) mmol/L Potassium 2.7 L* (3.6-5.0) mmol/L Carbon Dioxide 21 L (22-30) mmol/L BUN 6 L (9-20) mg/dL Glucose 239 H (75-100) mg/dL POC Glucose 255 H 305 H (70-105) mg/dL HEART Score - HEART Score Troponin: Troponin T < 0.010 ng/mL (0.00-0.029) 11/07/20 14:24
[2020-11-13] MEDS: cefTRIAXone/NS 1 GM/50 ML 1 GM/50 ML BAG IV SCH ×2 (18:00→22:09)
[2020-11-13] MEDS: metroNIDAZOLE/NS 500 MG/100 ML 500 MG/100 ML BAG IV SCH (18:45)
[2020-11-14] MEDS: metroNIDAZOLE/NS 500 MG/100 ML 500 MG/100 ML BAG IV SCH ×3 (02:55→18:58)
[2020-11-14] MEDS: POTASSIUM CHLORIDE 20 MEQ in LACTATED RINGERS 1,000 ML IV SCH (03:33)
[2020-11-14 06:47] LABS: BUN/Creatinine Ratio 8; Blood Urea Nitrogen 6 mg/dL (9-20); Calcium 7.9 mg/dL (8.4-10.2); Hemolysis Index 0
[2020-11-14] MEDS: POTASSIUM CHLORIDE 20 MEQ PACKET PO SCH (09:11)
[2020-11-14] MEDS: METOPROLOL TARTRATE 50 MG TAB PO SCH ×2 (09:11→21:45)
[2020-11-14] MEDS: K-PHOS NEUTRAL 250 MG TAB PO SCH ×4 (09:12→21:45)
[2020-11-14] MEDS: HEPARIN 5,000 UNIT/1 ML VIAL SUB-Q SCH ×2 (09:12→21:45)
[2020-11-14] MEDS: INSULIN REGULAR, HUMAN 100 UNITS/1 ML SUB-Q SCH ×4 (09:13→22:55)
[2020-11-14] MEDS: cefTRIAXone/NS 1 GM/50 ML 1 GM/50 ML BAG IV SCH (09:13)
[2020-11-14] MEDS: INSULIN GLARGINE 100 UNITS/ML SUB-Q SCH (09:15)
[2020-11-14] MEDS: INSULIN LISPRO 100 UNIT/ML SUB-Q SCH ×3 (09:15→19:00)
[2020-11-14] MEDS: LISINOPRIL 20 MG TAB PO SCH (09:59)
[2020-11-14] MEDS: MUPIROCIN 2% OINT 22 GM TP SCH ×2 (11:58→21:53)
--- NOTE | 2020-11-14 15:57 | Consultation ---
History of Present Illness - Reason for Consult Consult date: 11/14/20 - History of Present Illness 25-year-old man past medical history morbid obesity, newly diagnosed diabetes presented to hospital complaining of generalized weakness, shortness of breath, polyuria and polydipsia. During his admission he was diagnosed with diabetes due to the presence of DKA. Due to his admission he complained of mild scrotal tenderness, ultrasound was revealing of cellulitis and a 9 mm fluid collection concerning for phlegmon. General surgery consulted, no indication for surgery at this time. Febrile to 101.5 with a white count of 15.6. Currently on ceftriaxone. A wound culture obtained from groin wound is currently growing gram-negative rods. Imaging personally reviewed: Testicular ultrasound: Cellulitis and 9 mL scrotal fluid collection Review of Systems: Bold if positive, otherwise negative General: fevers, chills, rigors HEENT: visual disturbance, diplopia, eye pain Respiratory: cough, sputum, hemoptysis, shortness of breath Cardiovascular: chest pain, syncope Gastrointestinal: nausea, vomiting, diarrhea, abdominal pain Genitourinary: dysuria, hematuria, flank pain Musculoskeletal: neck pain, back pain, joint pain, edema Neurologic: headaches, seizures Hematologic: easy bruising or bleeding Endocrine: night sweats, acute weight loss Skin: rash, jaundice, redness Psychiatric: suicidal, homicidal ideation Medications and Allergies Allergies Allergy/AdvReac Type Severity Reaction Status Date / Time No Known Allergies Allergy Unverified 11/14/20 09:54 Home Medications Medication Instructions Recorded Confirmed Last Taken Type No Known Home Medications [No 11/08/20 11/08/20 Unknown History Reported Home Medications] Active Meds: Active Medications Acetaminophen (Acetaminophen 325 Mg Tab) 650 mg PO Q6H PRN PRN Reason: Pain, Mild (1-3) Last Admin: 11/13/20 23:40 Dose: 650 mg Documented by: Atorvastatin Calcium (Atorvastatin 40 Mg Tab) 40 mg PO QHS ANKIT Last Admin: 11/13/20 22:08 Dose: 40 mg Documented by: Dextrose (Dextrose 50% In Water (25gm) 50 Ml Syringe) 50 ml IV Q30MIN PRN; Protocol PRN Reason: Hypoglycemia Guaifenesin (Guaifenesin 100 Mg/5 Ml Oral Liqd) 200 mg PO Q4H PRN PRN Reason: Cough Last Admin: 11/13/20 02:51 Dose: 200 mg Documented by: Heparin Sodium (Porcine) (Heparin 5,000 Unit/1 Ml Vial) 5,000 unit SUB-Q Q12HR ANKIT Last Admin: 11/14/20 09:12 Dose: 5,000 unit Documented by: Hydralazine HCl (Hydralazine 20 Mg/1 Ml Inj) 10 mg IV Q4HR PRN PRN Reason: Hypertension Last Admin: 11/11/20 04:44 Dose: 10 mg Documented by: Potassium Chloride 20 meq/ (Lactated Ringer's) 1,010 mls @ 125 mls/hr IV DIRECT ANKIT Last Admin: 11/14/20 03:33 Dose: 125 mls/hr Documented by: Ceftriaxone Sodium (Rocephin/Ns 1 Gm/50 Ml) 1 gm in 50 mls @ 100 mls/hr IV Q12HR [facility]; Protocol Last Admin: 11/14/20 09:13 Dose: 100 mls/hr Documented by: Metronidazole (Flagyl 500 Mg/100 Ml) 500 mg in 100 mls @ 100 mls/hr IV Q8H [facility]; Protocol Last Admin: 11/14/20 11:59 Dose: 100 mls/hr Documented by: Insulin Glargine (Insulin Glargine 100 Units/Ml) 45 units SUB-Q QAMDIAB [facility] Last Admin: 11/14/20 09:15 Dose: 45 units Documented by: Insulin Human Lispro (Insulin Lispro 100 Unit/Ml) 10 unit SUB-Q AC [facility] Last Admin: 11/14/20 13:58 Dose: 10 unit Documented by: Insulin Human Regular (Insulin Regular, Human 100 Units/1 Ml) 0 units SUB-Q ACHS [facility]; Protocol Last Admin: 11/14/20 13:56 Dose: 8 units Documented by: Insulin Human Regular (Insulin Regular, Human 100 Units/1 Ml) 10 units IV QAC [facility] Labetalol HCl (Labetalol 20 Mg/4 Ml Inj) 10 mg IV Q6HR PRN PRN Reason: Hypertension Lisinopril (Lisinopril 20 Mg Tab) 20 mg PO QDAY [facility] Last Admin: 11/14/20 09:59 Dose: 20 mg Documented by: Metoprolol Tartrate (Metoprolol Tartrate 5 Mg/5 Ml Inj) 5 mg IV Q6HR PRN PRN Reason: Tachyarrhythmias Last Admin: 11/11/20 01:42 Dose: 5 mg Documented by: Metoprolol Tartrate (Metoprolol Tartrate 50 Mg Tab) 50 mg PO BID [facility] Last Admin: 11/14/20 09:11 Dose: 50 mg Documented by: Mupirocin (Mupirocin 2% Oint 22 Gm) 1 applic TP BID [facility] Last Admin: 11/14/20 11:58 Dose: 1 applic Documented by: Potassium Chloride (Potassium Chloride 20 Meq Packet) 40 meq PO QDAY [facility] Last Admin: 11/14/20 09:11 Dose: 40 meq Documented by: Sodium Phosphate (K-Phos Neutral 250 Mg Tab) 250 mg PO QID [facility] Last Admin: 11/14/20 14:58 Dose: 250 mg Documented by: Physical Examination - Physical Exam Narrative exam: Physical Exam: Constitutional: Alert, cooperative. No acute distress. Morbid obesity Head, Ears, Nose: Normocephalic, atraumatic. External ears, nose normal Eyes: Conjunctivae/corneas clear. No icterus. No ptosis. Neck: Supple, no meningeal signs Oral: dentition fair, no thrush Cardiovascular: S1, S2 normal. Respiratory: Good air entry, clear to auscultation bilaterally GI: Soft, non-tender; bowel sounds normal. No peritoneal signs. Musculoskeletal: No pedal edema, no cyanosis. Skin: No rash or abscess Hem/Lymphatic: No palpable cervical or supraclavicular nodes. No lymphangitis Psych: Mood ok. Affect normal Neurological: Awake, alert, oriented. No gross abnormality - Constitutional Vitals: Vital Signs Temp Pulse Resp BP Pulse Ox 100.1 F H 110 H 22 145/64 95 11/14/20 12:16 11/14/20 12:16 11/14/20 09:00 11/14/20 12:16 11/14/20 09:00 Temperature -Last 24 Hours Temperature 100.1 F Temperature 99.1 F Temperature 99.1 F Temperature 98.3 F Temperature 101.5 F Temperature 98.4 F Temperature 97.6 F Results - Labs CBC & Chem 7: 11/13/20 04:38 11/14/20 05:52 Labs: Abnormal lab results 11/13/20 11/13/20 11/14/20 Range/Units 16:59 20:24 05:52 Sodium 136 L (137-145) mmol/L Potassium 2.7 L* (3.6-5.0) mmol/L Carbon Dioxide 20 L (22-30) mmol/L BUN 6 L (9-20) mg/dL Glucose 298 H (75-100) mg/dL POC Glucose 345 H 316 H (70-105) mg/dL Calcium 7.9 L (8.4-10.2) mg/dL 11/14/20 11/14/20 Range/Units 08:22 11:53 Sodium (137-145) mmol/L Potassium (3.6-5.0) mmol/L Carbon Dioxide (22-30) mmol/L BUN (9-20) mg/dL Glucose (75-100) mg/dL POC Glucose 306 H 325 H (70-105) mg/dL Calcium (8.4-10.2) mg/dL Assessment and Plan Cultures: Wound culture 11/12/2020 gram-negative raymond A/P: 5-year-old man past medical history morbid obesity, diabetes admitted in DKA, found to have scrotal phlegmon #Scrotal phlegmon/abscess: With associated cellulitis. Likely secondary to diabetes, no indication for surgery at this time. Continue with antibiotics to prevent progression to Amanda's #DKA: Tight glycemic control for best wound healing above. #Morbid obesity Recs: -Stop Flagyl -Continue ceftriaxone -Start vancomycin goal trough 10-20 -Follow-up wound cultures Thank you for the consult, we will continue to follow. MD Grace Ahuja [facility] O: [phone] F: [phone]
[2020-11-14] MEDS ORDERED: VANCOMYCIN PHARMACY TO DOSE IV SCH (16:00)
--- NOTE | 2020-11-14 16:01 | Progress Note ---
Assessment and Plan This is a 25 year old male with HTN and MO admitted with DKA, electrolyte imbalances DKA, Severe hypophosphatemia, hyponatremia, hypokalemia, metabolic acidosis, morbid obesity -Insulin drip discontinued 11/10/2020 40 units of Lantus, lispro 10 units 3 times daily AC, and high-dose insulin sliding scale -11/08 hemoglobin A1c 16.7 -LR bolus, NS bolus x2 -Replete potassium as needed and recheck level -Replete phosphate and recheck level Replete magnesium -Nutrition consult -Dietary modifications and increasing physical activity encouraged -Trend BMP, phosphorus Hypertension with elevated triglycerides -IV labetalol and hydralazine as needed -Blood pressure monitor per protocol discontinued -Patient states that he does not take p.o. antihypertensives at home -11/18 lipid panel: Triglycerides 272, cholesterol 174, LDL 107, HDL 40 Continue atorvastatin and lisinopril -Encourage lifestyle modifications Metoprolol 25 mg twice daily for tachycardia with IV metoprolol with parameters Possible OHS/DOMINIQUE -Pulmonary hygiene -SPO2 monitoring -Supplemental oxygenation as needed -Outpatient PFTs and sleep study Possible scrotal abscess/colitis with sepsis, likely present from admission -Voiding into urinal -Scrotal ultrasound, initiate antibiotics and consult surgery -Consult ID for antibiotic recommendation Acute diarrhea, started from 11/12/20 -now on iv vancomycin -Send stool for WBC count Skin: No acute distress -Scrotal wound Wound care DVT/GI prophylaxis: Heparin subcu Dispo: Continue to treat for uncontrolled diabetes mellitus type 2 with DKA, sepsis. Wait for ID recommendation, continue to replete potassium, monitor BMP CODE STATUS: Full History Interval history: This is a 25-year-old male with HTN and morbid obesity who presented to [facility] 11/07 with complaints of severe generalized weakness, shortness of breath and increasing polyuria, polydipsia and polyphagia, SOB on minimal exertion, dry mouth, intermittent vomiting, constipation, dizziness, fatigue for approximately 2 weeks. Work-up in the emergency department revealed leukocytosis, polycythemia, hyponatremia, hypochloremia, Kussmaul's breathing on examination, Anion gap metabolic acidosis, hyperphosphatemia, hypokalemia, blood glucose of 787. Patient was admitted to the hospital service with consults to CCM on the DKA protocol. 11/08: AG not closed, IVF changed to ND from D51/2NS with KCL. Remains on insulin gtt and npo. K replaced 11/09: AG still not closed and remains on insulin gtt. IVF changed to D5 LR. Ordered additional LR bolus. CCM ordered 2 NS bolus. 1400 BMP with repeats at 2000 and 0400. 11/10/2020: Patient's breathing is improved, no chest pain or shortness of breath. Consulted with critical care physician to transition patient off of insulin drip. 11/11/2020, patient is improved, however gap has opened again, will give fluids, increase insulin, replete electrolytes. Patient in no distress. There is an issue of a scrotal wound, wound care has been consulted. 11/12/20; blood glucose around 300 today. Patient noted to have purulent drainage from the left groin and scrotum area. Spiking fever with elevated white count. Will initiate empiric antibiotic, will order scrotal ultrasound and will also consult general surgery. Replete potassium. 11/13/20: Patient developed acute diarrhea since yesterday. Potassium level dropped to 2.7 today. Continue to replete potassium. Magnesium and phosphorus level has been normal. Stop clindamycin will change antibiotic to Unasyn pending placement. Consult ID. Wait for culture result. Surgery recommended no surgical intervention necessary for scrotal abscess. Continue long-acting and sliding scale insulin. Patient does complains of right hand numbness. Will order for a CT head 11/14/20: Patient continues to have low potassium and right hand numbness. CT head yesterday obtained and showed no acute process. Will initiate patient on Neurontin. Discussed plan of care at bedside with patient and also with his mother. ID recommended to stop lisinopril and Initiated on vancomycin. Wound culture growing gram-negative rods, will continue to follow. Continue to replete potassium and follow BMP. Subjective Date of service: 11/14/20 Principal diagnosis: DKA Interval history: Patient seen and examined. Medical records and medication list reviewed. No acute event overnight noted by the RN. Complaints of generalized weakness, diarrhea ongoing Discussed plan of care at bedside with patient. Objective - Exam Narrative Exam: GENERAL: well-developed morbidly obese -[place] male lying on bed appeared to be in no discomfort. HEENT: Normocephalic. Atraumatic. No conjunctival congestion or icterus. Patient has moist mucous membranes. NECK: Supple. Trachea midline. CHEST/LUNGS: Clear to auscultated bilaterally, breathing nonlabored. No wheezes crackles or rhonchi. HEART/CARDIOVASCULAR: Regular in rate and rhythm. S1 and S2 positive. ABDOMEN: Abdomen is soft, nontender. Patient has normal bowel sounds. SKIN: There is no rash. Warm and dry. NEURO: No focal motor deficit. Follows command. MUSCULOSKELETAL: No joint effusion or tenderness. EXTRIMITY: No edema, no cyanosis or clubbing. : There is a slightly tender, non-fluctuant, superficial left scrotal nodule without significant associated cellulitis or induration.) PSYCH: Cooperative. - Constitutional Vitals: Vital Signs - 12hr 11/14/20 11/14/20 11/14/20 04:44 08:24 09:00 Temperature 98.3 F 99.1 F 99.1 F Pulse Rate 106 H 109 H 109 H Respiratory 20 20 22 Rate Blood Pressure 142/70 140/61 Blood Pressure 140/61 [Right] O2 Sat by Pulse 95 95 95 Oximetry 11/14/20 12:16 Temperature 100.1 F H Pulse Rate 110 H Respiratory Rate Blood Pressure Blood Pressure 145/64 [Right] O2 Sat by Pulse Oximetry - Labs CBC & Chem 7: 11/17/20 06:08 11/18/20 05:13 Labs: Abnormal lab results 11/13/20 11/13/20 11/14/20 Range/Units 16:59 20:24 05:52 Sodium 136 L (137-145) mmol/L Potassium 2.7 L* (3.6-5.0) mmol/L Carbon Dioxide 20 L (22-30) mmol/L BUN 6 L (9-20) mg/dL Glucose 298 H (75-100) mg/dL POC Glucose 345 H 316 H (70-105) mg/dL Calcium 7.9 L (8.4-10.2) mg/dL 11/14/20 11/14/20 Range/Units 08:22 11:53 Sodium (137-145) mmol/L Potassium (3.6-5.0) mmol/L Carbon Dioxide (22-30) mmol/L BUN (9-20) mg/dL Glucose (75-100) mg/dL POC Glucose 306 H 325 H (70-105) mg/dL Calcium (8.4-10.2) mg/dL HEART Score - HEART Score Troponin: Troponin T < 0.010 ng/mL (0.00-0.029) 11/07/20 14:24
[2020-11-14] MEDS ORDERED: INSULIN REGULAR, HUMAN 100 UNITS/1 ML IV SCH (16:30)
[2020-11-14] MEDS ORDERED: INSULIN REGULAR, HUMAN 100 UNITS/1 ML SUB-Q SCH (19:52)
[2020-11-14] MEDS: VANCOMYCIN 1,500 MG in SODIUM CHLORIDE 0.9% 500 ML 500 ML IV SCH (21:45)
[2020-11-15] MEDS: VANCOMYCIN 1,500 MG in SODIUM CHLORIDE 0.9% 500 ML 500 ML IV SCH ×4 (01:41→21:38)
[2020-11-15] MEDS: metroNIDAZOLE/NS 500 MG/100 ML 500 MG/100 ML BAG IV SCH (01:41)
[2020-11-15 04:03] LABS: Hematocrit 32.2 % (35.5-45.6); Hemoglobin 10.5 gm/dl (11.8-15.2); Mean Corpuscular HGB Conc 33 % (32-34); Mean Corpuscular Volume 62 fl (84-94); Platelet Count 171 K/mm3 (140-440); Red Blood Count 5.21 M/mm3 (3.65-5.03); Red Cell Distribution Width 16.4 % (13.2-15.2)
[2020-11-15 04:05] LABS: BUN/Creatinine Ratio 9; Blood Urea Nitrogen 7 mg/dL (9-20); Calcium 7.6 mg/dL (8.4-10.2); Hemolysis Index 0
[2020-11-15 04:47] LABS: Total Cells Counted 100
[2020-11-15 04:48] LABS: Anisocytosis 1+; Hypochromasia 2+; Large Platelets Few; Platelet Estimate Consistent w Auto
[2020-11-15] MEDS: POTASSIUM CHLORIDE 10 MEQ 10 MEQ/100 ML BAG IV SCH ×3 (05:20→23:22)
[2020-11-15] MEDS: POTASSIUM CHLORIDE 20 MEQ in LACTATED RINGERS 1,000 ML IV SCH (05:22)
[2020-11-15 09:20] LABS: Eosinophils # (Auto) 0.2 K/mm3 (0.0-0.4); Eosinophils % (Auto) 1.3 % (0.0-4.3)
[2020-11-15] MEDS: INSULIN REGULAR, HUMAN 100 UNITS/1 ML SUB-Q SCH ×4 (09:32→22:32)
[2020-11-15] MEDS: INSULIN GLARGINE 100 UNITS/ML SUB-Q SCH (09:33)
[2020-11-15] MEDS: K-PHOS NEUTRAL 250 MG TAB PO SCH ×4 (09:34→21:45)
[2020-11-15] MEDS: POTASSIUM CHLORIDE 20 MEQ PACKET PO SCH (09:34)
[2020-11-15] MEDS: LISINOPRIL 20 MG TAB PO SCH (09:34)
[2020-11-15] MEDS: METOPROLOL TARTRATE 50 MG TAB PO SCH ×2 (09:34→22:07)
[2020-11-15] MEDS: HEPARIN 5,000 UNIT/1 ML VIAL SUB-Q SCH ×2 (09:35→21:46)
[2020-11-15] MEDS: MUPIROCIN 2% OINT 22 GM TP SCH ×2 (10:08→21:58)
--- NOTE | 2020-11-15 10:27 | Electrocardiograph Report ---
[facility] Test Date: 2020-11-13 Test Time: 11:28:39 Pat Name: MARIA EUGENIA GUERRERO Department: Room: A492 1 Gender: M [employer] Representative: WILLIS : 1995 Requested By: ALEXIS HEBERT Order Number: [id number] Reading MD: Octavio Harrison Measurements Intervals [place] Rate: 118 P: 72 UT: 156 QRS: 70 QRSD: 103 T: -53 QT: 347 QTc: 485 Interpretive Statements Sinus tachycardia Probable left atrial enlargement Nonspecific ST segment abnormality Compared to ECG 11/07/2020 16:09:55 No significant Electronically Signed On 11-15-2020 10:26:30 EDT by Octavio Harrison
[2020-11-15] MEDS: cefTRIAXone/NS 2 GM/100 ML 2 GM/100 ML BAG IV SCH (14:09)
--- NOTE | 2020-11-15 14:09 | Progress Note ---
Assessment and Plan - Patient Problems (1) Scrotal abscess Current Visit: Yes Status: Acute Plan to address problem: 1) Improving 2) Continue antibiotics. 3) I will sign off. Subjective Date of service: 11/15/20 Patient Reports: Positive: no new complaints Objective Vital Signs - 12hr 11/15/20 11/15/20 11/15/20 04:00 07:54 09:34 Temperature 98.8 F 97.9 F Pulse Rate 97 H 114 H 104 H Respiratory 20 20 Rate Blood Pressure 131/63 140/71 O2 Sat by Pulse 94 96 Oximetry 11/15/20 11:56 Temperature 98.6 F Pulse Rate 93 H Respiratory 20 Rate Blood Pressure 111/54 O2 Sat by Pulse 96 Oximetry - Genitourinary other (No change in left scrotal exam.) - Labs 11/15/20 03:44 11/15/20 03:44 Diabetes panel 11/15/20 Range/Units 03:44 Sodium 134 L (137-145) mmol/L Potassium 2.7 L* (3.6-5.0) mmol/L Chloride 99.2 (98-107) mmol/L Carbon Dioxide 23 (22-30) mmol/L BUN 7 L (9-20) mg/dL Creatinine 0.8 (0.8-1.3) mg/dL Glucose 279 H (75-100) mg/dL Calcium 7.6 L (8.4-10.2) mg/dL Calcium panel 11/15/20 11/15/20 Range/Units 03:44 03:44 Calcium 7.6 L (8.4-10.2) mg/dL Phosphorus 3.10 (2.5-4.5) mg/dL Pituitary panel 11/15/20 Range/Units 03:44 Sodium 134 L (137-145) mmol/L Potassium 2.7 L* (3.6-5.0) mmol/L Chloride 99.2 (98-107) mmol/L Carbon Dioxide 23 (22-30) mmol/L BUN 7 L (9-20) mg/dL Creatinine 0.8 (0.8-1.3) mg/dL Glucose 279 H (75-100) mg/dL Calcium 7.6 L (8.4-10.2) mg/dL Adrenal panel 11/15/20 Range/Units 03:44 Sodium 134 L (137-145) mmol/L Potassium 2.7 L* (3.6-5.0) mmol/L Chloride 99.2 (98-107) mmol/L Carbon Dioxide 23 (22-30) mmol/L BUN 7 L (9-20) mg/dL Creatinine 0.8 (0.8-1.3) mg/dL Glucose 279 H (75-100) mg/dL Calcium 7.6 L (8.4-10.2) mg/dL
--- NOTE | 2020-11-15 15:09 | Progress Note ---
Assessment and Plan Cultures: Wound culture 11/12/2020 gram-negative raymond A/P: 5-year-old man past medical history morbid obesity, diabetes admitted in DKA, found to have scrotal phlegmon #Scrotal phlegmon/abscess: With associated cellulitis. Likely secondary to diabetes, no indication for surgery at this time. #DKA: Tight glycemic control for best wound healing above. #Morbid obesity Recs: -Continue ceftriaxone -Start vancomycin goal trough 10-20 -Follow-up wound cultures -If no improvement in pain, with repeat ultrasound to ensure phlegmon has not coalesced into an abscess. Dr. Avalos rounding this weekend. Thank you for the consult, we will continue to follow. Masha Mccarthy MD [facility] ([facility]) O: [phone] F: [phone] Subjective Date of service: 11/15/20 Principal diagnosis: DKA Interval history: Afebrile, white count slightly improved on 12.7. Objective - Exam Narrative Exam: Physical Exam: Constitutional: Alert, cooperative. No acute distress. Morbid obesity Head, Ears, Nose: Normocephalic, atraumatic. Eyes: Conjunctivae/corneas clear. No icterus. No ptosis. Neck: Supple, no meningeal signs Oral: dentition fair, no thrush Cardiovascular: S1, S2 normal. Respiratory: Good air entry, clear to auscultation bilaterally GI: Soft, non-tender; bowel sounds normal. No peritoneal signs. Musculoskeletal: No pedal edema, no cyanosis. Skin: No rash or abscess Hem/Lymphatic: No palpable cervical or supraclavicular nodes. No lymphangitis Psych: Mood ok. Affect normal Neurological: Awake, alert, oriented. No gross abnormality - Constitutional Vitals: Vital Signs Temp Pulse Resp BP Pulse Ox 98.6 F 93 H 20 111/54 96 11/15/20 11:56 11/15/20 11:56 11/15/20 11:56 11/15/20 11:56 11/15/20 11:56 Temperature -Last 24 Hours Temperature 98.6 F Temperature 97.9 F Temperature 98.8 F Temperature 98.2 F Temperature 98.3 F Temperature 97.9 F - Labs CBC & Chem 7: 11/15/20 03:44 11/15/20 03:44 Labs: Abnormal lab results 07/08/21 07/08/21 07/09/21 Range/Units 16:56 21:18 03:44 WBC (4.5-11.0) K/mm3 RBC (3.65-5.03) M/mm3 Hgb (11.8-15.2) gm/dl Hct (35.5-45.6) % MCV (84-94) fl MCH (28-32) pg RDW (13.2-15.2) % Logan % (Auto) (0.0-7.3) % Logan # (Auto) (0.0-0.8) K/mm3 Monocytes % (Manual) (0.0-7.3) % Seg Neutrophils # (1.8-7.7) K/mm3 Seg Neutrophils # Man (1.8-7.7) K/mm3 Monocytes # (Manual) (0.0-0.8) K/mm3 Sodium 134 L (137-145) mmol/L Potassium 2.7 L* (3.6-5.0) mmol/L BUN 7 L (9-20) mg/dL Glucose 279 H (75-100) mg/dL POC Glucose 334 H 300 H (70-105) mg/dL Calcium 7.6 L (8.4-10.2) mg/dL C-Reactive Protein (0.00-1.30) mg/dL 11/15/20 11/15/20 11/15/20 Range/Units 03:44 03:44 07:52 WBC 12.7 H (4.5-11.0) K/mm3 RBC 5.21 H (3.65-5.03) M/mm3 Hgb 10.5 L (11.8-15.2) gm/dl Hct 32.2 L (35.5-45.6) % MCV 62 L (84-94) fl MCH 20 L (28-32) pg RDW 16.4 H (13.2-15.2) % Logan % (Auto) 16.0 H (0.0-7.3) % Logan # (Auto) 2.0 H (0.0-0.8) K/mm3 Monocytes % (Manual) 13.0 H (0.0-7.3) % Seg Neutrophils # 8.4 H (1.8-7.7) K/mm3 Seg Neutrophils # Man 8.9 H (1.8-7.7) K/mm3 Monocytes # (Manual) 1.7 H (0.0-0.8) K/mm3 Sodium (137-145) mmol/L Potassium (3.6-5.0) mmol/L BUN (9-20) mg/dL Glucose (75-100) mg/dL POC Glucose 265 H (70-105) mg/dL Calcium (8.4-10.2) mg/dL C-Reactive Protein 28.20 H (0.00-1.30) mg/dL 11/15/20 Range/Units 11:53 WBC (4.5-11.0) K/mm3 RBC (3.65-5.03) M/mm3 Hgb (11.8-15.2) gm/dl Hct (35.5-45.6) % MCV (84-94) fl MCH (28-32) pg RDW (13.2-15.2) % Logan % (Auto) (0.0-7.3) % Logan # (Auto) (0.0-0.8) K/mm3 Monocytes % (Manual) (0.0-7.3) % Seg Neutrophils # (1.8-7.7) K/mm3 Seg Neutrophils # Man (1.8-7.7) K/mm3 Monocytes # (Manual) (0.0-0.8) K/mm3 Sodium (137-145) mmol/L Potassium (3.6-5.0) mmol/L BUN (9-20) mg/dL Glucose (75-100) mg/dL POC Glucose 354 H (70-105) mg/dL Calcium (8.4-10.2) mg/dL C-Reactive Protein (0.00-1.30) mg/dL
--- NOTE | 2020-11-15 18:47 | Progress Note ---
Assessment and Plan This is a 25 year old male with HTN and MO admitted with DKA, electrolyte imbalances DKA, Severe hypophosphatemia, hyponatremia, hypokalemia, metabolic acidosis, morbid obesity -Insulin drip discontinued 11/10/2020 40 units of Lantus, lispro 10 units 3 times daily AC, and high-dose insulin sliding scale -11/08 hemoglobin A1c 16.7 -LR bolus, NS bolus x2 -Replete potassium as needed and recheck level -Replete phosphate and recheck level Replete magnesium -Nutrition consult -Dietary modifications and increasing physical activity encouraged -Trend BMP, phosphorus Hypertension with elevated triglycerides -IV labetalol and hydralazine as needed -Blood pressure monitor per protocol discontinued -Patient states that he does not take p.o. antihypertensives at home -11/18 lipid panel: Triglycerides 272, cholesterol 174, LDL 107, HDL 40 Continue atorvastatin and lisinopril -Encourage lifestyle modifications Metoprolol 25 mg twice daily for tachycardia with IV metoprolol with parameters Possible OHS/DOMINIQUE -Pulmonary hygiene -SPO2 monitoring -Supplemental oxygenation as needed -Outpatient PFTs and sleep study Possible scrotal abscess/colitis with sepsis, likely present from admission -Voiding into urinal -Scrotal ultrasound, initiate antibiotics and consult surgery -Consult ID for antibiotic recommendation Acute diarrhea, started from yesterday -Change IV clindamycin to IV Rocephin and Flagyl -Send stool for WBC count Skin: No acute distress -Scrotal wound Wound care DVT/GI prophylaxis: Heparin subcu Dispo: Continue to treat for uncontrolled diabetes mellitus type 2 with DKA, sepsis. Wait for ID recommendation, continue to replete potassium, monitor BMP CODE STATUS: Full History Interval history: This is a 25-year-old male with HTN and morbid obesity who presented to [facility] 11/07 with complaints of severe generalized weakness, shortness of breath and increasing polyuria, polydipsia and polyphagia, SOB on minimal exertion, dry mouth, intermittent vomiting, constipation, dizziness, fatigue for approximately 2 weeks. Work-up in the emergency department revealed leukocytosis, polycythemia, hyponatremia, hypochloremia, Kussmaul's breathing on examination, Anion gap metabolic acidosis, hyperphosphatemia, hypokalemia, blood glucose of 787. Patient was admitted to the hospital service with consults to CCM on the DKA protocol. 11/08: AG not closed, IVF changed to ND from D51/2NS with KCL. Remains on insulin gtt and npo. K replaced 11/09: AG still not closed and remains on insulin gtt. IVF changed to D5 LR. Ordered additional LR bolus. [facility] ordered 2 NS bolus. 1400 BMP with repeats at 2000 and 0400. 11/10/2020: Patient's breathing is improved, no chest pain or shortness of breath. Consulted with critical care physician to transition patient off of insulin drip. 11/11/2020, patient is improved, however gap has opened again, will give fluids, increase insulin, replete electrolytes. Patient in no distress. There is an issue of a scrotal wound, wound care has been consulted. 11/12/20; blood glucose around 300 today. Patient noted to have purulent drainage from the left groin and scrotum area. Spiking fever with elevated white count. Will initiate empiric antibiotic, will order scrotal ultrasound and will also consult general surgery. Replete potassium. 11/13/20: Patient developed acute diarrhea since yesterday. Potassium level dropped to 2.7 today. Continue to replete potassium. Magnesium and phosphorus level has been normal. Stop clindamycin will change antibiotic to Unasyn pending placement. Consult ID. Wait for culture result. Surgery recommended no surgical intervention necessary for scrotal abscess. Continue long-acting and sliding scale insulin. Patient does complains of right hand numbness. Will order for a CT head 11/14/20: Patient continues to have low potassium and right hand numbness. CT head yesterday obtained and showed no acute process. Will initiate patient on Neurontin. Discussed plan of care at bedside with patient and also with his mother. ID recommended to stop flagyl and Initiated on vancomycin. Wound culture growing gram-negative rods, will continue to follow. Continue to replete potassium and follow BMP. 11/15/20: continue to have low K. cont to replete. follow BMP. cont abx. Discussed plan of care with mother by phone and also with patient. Subjective Date of service: 11/15/20 Principal diagnosis: DKA Interval history: Patient seen and examined. Medical records and medication list reviewed. No acute event overnight noted by the RN. Complaints of generalized weakness, diarrhea ongoing Potassium level remains 2.7 today Discussed plan of care at bedside with patient. Objective - Exam Narrative Exam: GENERAL: well-developed morbidly obese -Chinese male lying on bed appeared to be in no discomfort. HEENT: Normocephalic. Atraumatic. No conjunctival congestion or icterus. Patient has moist mucous membranes. NECK: Supple. Trachea midline. CHEST/LUNGS: Clear to auscultated bilaterally, breathing nonlabored. No wheezes crackles or rhonchi. HEART/CARDIOVASCULAR: Regular in rate and rhythm. S1 and S2 positive. ABDOMEN: Abdomen is soft, nontender. Patient has normal bowel sounds. SKIN: There is no rash. Warm and dry. NEURO: No focal motor deficit. Follows command. MUSCULOSKELETAL: No joint effusion or tenderness. EXTRIMITY: No edema, no cyanosis or clubbing. : There is a slightly tender, non-fluctuant, superficial left scrotal nodule without significant associated cellulitis or induration.) PSYCH: Cooperative. - Constitutional Vitals: Vital Signs - 12hr 11/15/20 11/15/20 11/15/20 07:54 09:34 11:56 Temperature 97.9 F 98.6 F Pulse Rate 114 H 104 H 93 H Respiratory 20 20 Rate Blood Pressure 140/71 111/54 O2 Sat by Pulse 96 96 Oximetry 11/15/20 16:31 Temperature 99.0 F Pulse Rate 103 H Respiratory 20 Rate Blood Pressure 104/52 O2 Sat by Pulse 94 Oximetry - Labs CBC & Chem 7: 11/17/20 06:08 11/18/20 05:13 Labs: Abnormal lab results 11/14/20 11/15/20 11/15/20 Range/Units 21:18 03:44 03:44 WBC (4.5-11.0) K/mm3 RBC (3.65-5.03) M/mm3 Hgb (11.8-15.2) gm/dl Hct (35.5-45.6) % MCV (84-94) fl MCH (28-32) pg RDW (13.2-15.2) % Mobile % (Auto) (0.0-7.3) % Mobile # (Auto) (0.0-0.8) K/mm3 Monocytes % (Manual) (0.0-7.3) % Seg Neutrophils # (1.8-7.7) K/mm3 Seg Neutrophils # Man (1.8-7.7) K/mm3 Monocytes # (Manual) (0.0-0.8) K/mm3 Sodium 134 L (137-145) mmol/L Potassium 2.7 L* (3.6-5.0) mmol/L BUN 7 L (9-20) mg/dL Glucose 279 H (75-100) mg/dL POC Glucose 300 H (70-105) mg/dL Calcium 7.6 L (8.4-10.2) mg/dL C-Reactive Protein 28.20 H (0.00-1.30) mg/dL 11/15/20 11/15/20 11/15/20 Range/Units 03:44 07:52 11:53 WBC 12.7 H (4.5-11.0) K/mm3 RBC 5.21 H (3.65-5.03) M/mm3 Hgb 10.5 L (11.8-15.2) gm/dl Hct 32.2 L (35.5-45.6) % MCV 62 L (84-94) fl MCH 20 L (28-32) pg RDW 16.4 H (13.2-15.2) % Mobile % (Auto) 16.0 H (0.0-7.3) % Mobile # (Auto) 2.0 H (0.0-0.8) K/mm3 Monocytes % (Manual) 13.0 H (0.0-7.3) % Seg Neutrophils # 8.4 H (1.8-7.7) K/mm3 Seg Neutrophils # Man 8.9 H (1.8-7.7) K/mm3 Monocytes # (Manual) 1.7 H (0.0-0.8) K/mm3 Sodium (137-145) mmol/L Potassium (3.6-5.0) mmol/L BUN (9-20) mg/dL Glucose (75-100) mg/dL POC Glucose 265 H 354 H (70-105) mg/dL Calcium (8.4-10.2) mg/dL C-Reactive Protein (0.00-1.30) mg/dL 11/15/20 Range/Units 16:29 WBC (4.5-11.0) K/mm3 RBC (3.65-5.03) M/mm3 Hgb (11.8-15.2) gm/dl Hct (35.5-45.6) % MCV (84-94) fl MCH (28-32) pg RDW (13.2-15.2) % Mobile % (Auto) (0.0-7.3) % Mobile # (Auto) (0.0-0.8) K/mm3 Monocytes % (Manual) (0.0-7.3) % Seg Neutrophils # (1.8-7.7) K/mm3 Seg Neutrophils # Man (1.8-7.7) K/mm3 Monocytes # (Manual) (0.0-0.8) K/mm3 Sodium (137-145) mmol/L Potassium (3.6-5.0) mmol/L BUN (9-20) mg/dL Glucose (75-100) mg/dL POC Glucose 400 H (70-105) mg/dL Calcium (8.4-10.2) mg/dL C-Reactive Protein (0.00-1.30) mg/dL HEART Score - HEART Score Troponin: Troponin T < 0.010 ng/mL (0.00-0.029) 11/07/20 14:24
[2020-11-15] MEDS ORDERED: INSULIN GLARGINE 100 UNITS/ML SUB-Q SCH (22:00)
[2020-11-16] MEDS: POTASSIUM CHLORIDE 20 MEQ in LACTATED RINGERS 1,000 ML IV SCH ×2 (01:20→13:03)
[2020-11-16] MEDS: POTASSIUM CHLORIDE 10 MEQ 10 MEQ/100 ML BAG IV SCH ×2 (01:24→01:40)
[2020-11-16] MEDS: VANCOMYCIN 1,500 MG in SODIUM CHLORIDE 0.9% 500 ML 500 ML IV SCH ×3 (06:08→21:05)
[2020-11-16 06:41] LABS: BUN/Creatinine Ratio 8; Blood Urea Nitrogen 7 mg/dL (9-20); Hemolysis Index 3
[2020-11-16] MEDS ORDERED: INSULIN GLARGINE 100 UNITS/ML SUB-Q SCH (08:00)
[2020-11-16 08:36] LABS: BUN/Creatinine Ratio 9; Blood Urea Nitrogen 7 mg/dL (9-20); Calcium 8.2 mg/dL (8.4-10.2); Hemolysis Index 81
[2020-11-16] MEDS: LISINOPRIL 20 MG TAB PO SCH (10:00)
[2020-11-16] MEDS: POTASSIUM CHLORIDE 20 MEQ PACKET PO SCH (10:00)
[2020-11-16] MEDS: HEPARIN 5,000 UNIT/1 ML VIAL SUB-Q SCH ×2 (10:01→21:12)
[2020-11-16] MEDS: METOPROLOL TARTRATE 50 MG TAB PO SCH ×2 (10:01→21:06)
[2020-11-16] MEDS: K-PHOS NEUTRAL 250 MG TAB PO SCH ×4 (10:01→23:31)
[2020-11-16] MEDS: INSULIN REGULAR, HUMAN 100 UNITS/1 ML SUB-Q SCH ×7 (10:02→23:24)
[2020-11-16] MEDS: cefTRIAXone/NS 2 GM/100 ML 2 GM/100 ML BAG IV SCH (10:03)
[2020-11-16] MEDS: MUPIROCIN 2% OINT 22 GM TP SCH ×2 (10:24→21:04)
--- NOTE | 2020-11-16 19:36 | Progress Note ---
Assessment and Plan This is a 25 year old male with HTN and MO admitted with DKA, electrolyte imbalances DKA, Severe hypophosphatemia, hyponatremia, hypokalemia, metabolic acidosis, morbid obesity -Insulin drip discontinued 11/10/2020 40 units of Lantus, lispro 10 units 3 times daily AC, and high-dose insulin sliding scale -11/08 hemoglobin A1c 16.7 -LR bolus, NS bolus x2 -Replete potassium as needed and recheck level -Replete phosphate and recheck level Replete magnesium -Nutrition consult -Dietary modifications and increasing physical activity encouraged -Trend BMP, phosphorus Hypertension with elevated triglycerides -IV labetalol and hydralazine as needed -Blood pressure monitor per protocol discontinued -Patient states that he does not take p.o. antihypertensives at home -11/18 lipid panel: Triglycerides 272, cholesterol 174, LDL 107, HDL 40 Continue atorvastatin and lisinopril -Encourage lifestyle modifications Metoprolol 25 mg twice daily for tachycardia with IV metoprolol with parameters Possible OHS/DOMINIQUE -Pulmonary hygiene -SPO2 monitoring -Supplemental oxygenation as needed -Outpatient PFTs and sleep study Possible scrotal abscess/colitis with sepsis, likely present from admission -Voiding into urinal -Scrotal ultrasound, initiate antibiotics and consult surgery -Consult ID for antibiotic recommendation Acute diarrhea, started from 11/12/20 -Change antibiotic to IV Rocephin and vancomycin -ID consulted -Sent stool for WBC count Skin: No acute distress -Scrotal wound Wound care DVT/GI prophylaxis: Heparin subcu Dispo: Continue to treat for uncontrolled diabetes mellitus type 2 with DKA, sepsis. Wait for ID recommendation, continue to replete potassium, monitor BMP CODE STATUS: Full History Interval history: This is a 25-year-old male with HTN and morbid obesity who presented to [facility] 11/07 with complaints of severe generalized weakness, shortness of breath and increasing polyuria, polydipsia and polyphagia, SOB on minimal exertion, dry mouth, intermittent vomiting, constipation, dizziness, fatigue for approximately 2 weeks. Work-up in the emergency department revealed leukocytosis, polycythemia, hyponatremia, hypochloremia, Kussmaul's breathing on examination, Anion gap metabolic acidosis, hyperphosphatemia, hypokalemia, blood glucose of 787. Patient was admitted to the hospital service with consults to CCM on the DKA protocol. 7/2: AG not closed, IVF changed to ND from D51/2NS with KCL. Remains on insulin gtt and npo. K replaced 11/09: AG still not closed and remains on insulin gtt. IVF changed to D5 LR. Ordered additional LR bolus. CCM ordered 2 NS bolus. 1400 BMP with repeats at 2000 and 0400. 11/10/2020: Patient's breathing is improved, no chest pain or shortness of breath. Consulted with critical care physician to transition patient off of insulin d rip. 11/11/2020, patient is improved, however gap has opened again, will give fluids, increase insulin, replete electrolytes. Patient in no distress. There is an issue of a scrotal wound, wound care has been consulted. 11/12/20; blood glucose around 300 today. Patient noted to have purulent drainage from the left groin and scrotum area. Spiking fever with elevated white count. Will initiate empiric antibiotic, will order scrotal ultrasound and will also consult general surgery. Replete potassium. 11/13/20: Patient developed acute diarrhea since yesterday. Potassium level dropped to 2.7 today. Continue to replete potassium. Magnesium and phosphorus level has been normal. Stop clindamycin will change antibiotic to Unasyn pending placement. Consult ID. Wait for culture result. Surgery recommended no surgical intervention necessary for scrotal abscess. Continue long-acting and sliding scale insulin. Patient does complains of right hand numbness. Will order for a CT head 11/14/20: Patient continues to have low potassium and right hand numbness. CT head yesterday obtained and showed no acute process. Will initiate patient on Neurontin. Discussed plan of care at bedside with patient and also with his mother. ID recommended to stop flagyl and Initiated on vancomycin. Wound culture growing gram-negative rods, will continue to follow. Continue to replete potassium and follow BMP. 11/15/20: continue to have low K. cont to replete. follow BMP. cont abx 11/16/20: K 3.4 today, BG still at 300s. cont to increase insulin, follow BMP. if K remains stable possible d/c tomorrow. pt still having loose BM Subjective Date of service: 11/16/20 Principal diagnosis: DKA Interval history: Patient seen and examined. Medical records and medication list reviewed. No acute event overnight noted by the RN. Complaints of generalized weakness, Potassium level slightly improved but continues to have diarrhea Discussed plan of care at bedside with patient. Objective - Exam Narrative Exam: GENERAL: well-developed morbidly obese -[place] male lying on bed appeared to be in no discomfort. HEENT: Normocephalic. Atraumatic. No conjunctival congestion or icterus. Patient has moist mucous membranes. NECK: Supple. Trachea midline. CHEST/LUNGS: Clear to auscultated bilaterally, breathing nonlabored. No wheezes crackles or rhonchi. HEART/CARDIOVASCULAR: Regular in rate and rhythm. S1 and S2 positive. ABDOMEN: Abdomen is soft, nontender. Patient has normal bowel sounds. SKIN: There is no rash. Warm and dry. NEURO: No focal motor deficit. Follows command. MUSCULOSKELETAL: No joint effusion or tenderness. EXTRIMITY: No edema, no cyanosis or clubbing. : There is a slightly tender, non-fluctuant, superficial left scrotal nodule without significant associated cellulitis or induration.) PSYCH: Cooperative. - Constitutional Vitals: Vital Signs - 12hr 11/16/20 11/16/20 11/16/20 08:30 10:00 12:02 Temperature 98.2 F 98.6 F Pulse Rate 104 H 94 H Respiratory 20 18 18 Rate Blood Pressure 127/67 Blood Pressure 130/64 [Right] O2 Sat by Pulse 94 96 Oximetry 11/16/20 11/16/20 11/16/20 14:10 16:28 18:00 Temperature 99.0 F Pulse Rate 97 H 114 H 97 H Respiratory 20 Rate Blood Pressure 145/82 Blood Pressure [Right] O2 Sat by Pulse 94 Oximetry - Labs CBC & Chem 7: 11/17/20 06:08 11/18/20 05:13 Labs: Abnormal lab results 11/15/20 11/15/20 11/16/20 Range/Units 21:34 23:00 05:48 Sodium 135 L (137-145) mmol/L Potassium 3.0 L 3.0 L (3.6-5.0) mmol/L BUN 7 L (9-20) mg/dL Glucose 306 H (75-100) mg/dL POC Glucose 374 H (70-105) mg/dL Calcium 8.0 L (8.4-10.2) mg/dL 11/16/20 Range/Units 07:32 Sodium (137-145) mmol/L Potassium 3.4 L (3.6-5.0) mmol/L BUN 7 L (9-20) mg/dL Glucose 301 H (75-100) mg/dL POC Glucose (70-105) mg/dL Calcium 8.2 L (8.4-10.2) mg/dL HEART Score - HEART Score Troponin: Troponin T < 0.010 ng/mL (0.00-0.029) 11/07/20 14:24
[2020-11-17] MEDS: INSULIN GLARGINE 100 UNITS/ML SUB-Q SCH ×3 (00:02→22:16)
[2020-11-17] MEDS: POTASSIUM CHLORIDE 20 MEQ in LACTATED RINGERS 1,000 ML IV SCH (00:03)
[2020-11-17] MEDS: VANCOMYCIN 1,500 MG in SODIUM CHLORIDE 0.9% 500 ML 500 ML IV SCH ×3 (05:38→22:14)
[2020-11-17 06:39] LABS: Basophils % (Auto) 0.4 % (0.0-1.8); Eosinophils # (Auto) 0.2 K/mm3 (0.0-0.4); Eosinophils % (Auto) 1.7 % (0.0-4.3); Hemoglobin 10.3 gm/dl (11.8-15.2); Lymphocytes # (Auto) 2.5 K/mm3 (1.2-5.4); Lymphocytes % (Auto) 19.5 % (13.4-35.0); Mean Corpuscular HGB Conc 32 % (32-34); Monocytes # (Auto) 1.1 K/mm3 (0.0-0.8); Monocytes % (Auto) 8.5 % (0.0-7.3); Platelet Count 243 K/mm3 (140-440); Red Cell Distribution Width 15.9 % (13.2-15.2)
[2020-11-17 06:45] LABS: BUN/Creatinine Ratio 7; Blood Urea Nitrogen 6 mg/dL (9-20); Calcium 8.4 mg/dL (8.4-10.2); Hemolysis Index 4
[2020-11-17 07:00] LABS: Mean Corpuscular Volume 63 fl (84-94)
[2020-11-17] MEDS: POTASSIUM CHLORIDE 20 MEQ PACKET PO SCH ×2 (09:51→22:14)
[2020-11-17] MEDS: cefTRIAXone/NS 2 GM/100 ML 2 GM/100 ML BAG IV SCH (09:51)
[2020-11-17] MEDS: LISINOPRIL 20 MG TAB PO SCH (09:52)
[2020-11-17] MEDS: METOPROLOL TARTRATE 50 MG TAB PO SCH ×2 (09:52→22:21)
[2020-11-17] MEDS: HEPARIN 5,000 UNIT/1 ML VIAL SUB-Q SCH ×2 (09:52→22:17)
[2020-11-17] MEDS: K-PHOS NEUTRAL 250 MG TAB PO SCH ×4 (09:53→22:17)
[2020-11-17] MEDS: INSULIN REGULAR, HUMAN 100 UNITS/1 ML SUB-Q SCH ×7 (09:53→22:18)
[2020-11-17] MEDS: MUPIROCIN 2% OINT 22 GM TP SCH ×2 (10:06→22:16)
[2020-11-17] MEDS: POTASSIUM CHLORIDE 10 MEQ 10 MEQ/100 ML BAG IV SCH ×5 (10:06→19:25)
--- NOTE | 2020-11-17 15:42 | Progress Note ---
Assessment and Plan This is a 25 year old male with HTN and MO admitted with DKA, electrolyte imbalances DKA, Severe hypophosphatemia, hyponatremia, hypokalemia, metabolic acidosis, morbid obesity -Insulin drip discontinued 11/10/2020 40 units of Lantus, lispro 10 units 3 times daily AC, and high-dose insulin sliding scale -11/08 hemoglobin A1c 16.7 -LR bolus, NS bolus x2 -Replete potassium as needed and recheck level -Replete phosphate and recheck level Replete magnesium -Nutrition consult -Dietary modifications and increasing physical activity encouraged -Trend BMP, phosphorus Hypertension with elevated triglycerides -IV labetalol and hydralazine as needed -Blood pressure monitor per protocol discontinued -Patient states that he does not take p.o. antihypertensives at home -11/18 lipid panel: Triglycerides 272, cholesterol 174, LDL 107, HDL 40 Continue atorvastatin and lisinopril -Encourage lifestyle modifications Metoprolol 25 mg twice daily for tachycardia with IV metoprolol with parameters Possible OHS/DOMINIQUE -Pulmonary hygiene -SPO2 monitoring -Supplemental oxygenation as needed -Outpatient PFTs and sleep study Possible scrotal abscess/colitis with sepsis, likely present from admission -Voiding into urinal -Scrotal ultrasound, initiate antibiotics and consult surgery -Consult ID for antibiotic recommendation: on rocephin Acute diarrhea, started from 11/12/20 -now on iv vancomycin -Send stool for WBC count Skin: No acute distress -Scrotal wound Wound care DVT/GI prophylaxis: Heparin subcu Dispo: Continue to treat for uncontrolled diabetes mellitus type 2 with DKA, sepsis. Wait for ID recommendation, continue to replete potassium, monitor BMP CODE STATUS: Full History Interval history: This is a 25-year-old male with HTN and morbid obesity who presented to [facility] 11/07 with complaints of severe generalized weakness, shortness of breath and increasing polyuria, polydipsia and polyphagia, SOB on minimal exertion, dry mouth, intermittent vomiting, constipation, dizziness, fatigue for approximately 2 weeks. Work-up in the emergency department revealed leukocytosis, polycythemia, hyponatremia, hypochloremia, Kussmaul's breathing on examination, Anion gap metabolic acidosis, hyperphosphatemia, hypokalemia, blood glucose of 787. Patient was admitted to the hospital service with consults to CCM on the DKA protocol. 11/08: AG not closed, IVF changed to ND from D51/2NS with KCL. Remains on insulin gtt and npo. K replaced 11/09: AG still not closed and remains on insulin gtt. IVF changed to D5 LR. Ordered additional LR bolus. CCM ordered 2 NS bolus. 1400 BMP with repeats at 2000 and 0400. 11/10/2020: Patient's breathing is improved, no chest pain or shortness of breath. Consulted with critical care physician to transition patient off of insulin drip. 11/11/2020, patient is improved, however gap has opened again, will give fluids, increase insulin, replete electrolytes. Patient in no distress. There is an issue of a scrotal wound, wound care has been consulted. 11/12/20; blood glucose around 300 today. Patient noted to have purulent drainage from the left groin and scrotum area. Spiking fever with elevated white count. Will initiate empiric antibiotic, will order scrotal ultrasound and will also consult general surgery. Replete potassium. 11/13/20: Patient developed acute diarrhea since yesterday. Potassium level dropped to 2.7 today. Continue to replete potassium. Magnesium and phosphorus level has been normal. Stop clindamycin will change antibiotic to Unasyn pending placement. Consult ID. Wait for culture result. Surgery recommended no surgical intervention necessary for scrotal abscess. Continue long-acting and sliding scale insulin. Patient does complains of right hand numbness. Will order for a CT head 11/14/20: Patient continues to have low potassium and right hand numbness. CT head yesterday obtained and showed no acute process. Will initiate patient on Neurontin. Discussed plan of care at bedside with patient and also with his mo ther. ID recommended to stop flagyl and Initiated on vancomycin. Wound culture growing gram-negative rods, will continue to follow. Continue to replete potassium and follow BMP. 11/15/20: continue to have low K level. cont to replete. follow BMP. cont abx 11/16/20: K 3.4 today, BG still at 300s. cont to increase insulin, follow BMP. if K remains stable possible d/c tomorrow. pt still having loose BM 11/17/20: discussed with mother at bedside. patient has h/o chronic diarrhea with 4/5 loose BM daily. has colonoscopy at age of 16 and says findings were normal. Will order CT abd/pelvis, K dropped to 2.8 today. will also consult GI. Subjective Date of service: 11/17/20 Principal diagnosis: DKA Interval history: Patient seen and examined. Medical records and medication list reviewed. No acute event overnight noted by the RN. Complaints of generalized weakness, Potassium level remains low, Discussed plan of care at bedside with patient. Objective - Exam Narrative Exam: GENERAL: well-developed morbidly obese -[place] male lying on bed appeared to be in no discomfort. HEENT: Normocephalic. Atraumatic. No conjunctival congestion or icterus. Patient has moist mucous membranes. NECK: Supple. Trachea midline. CHEST/LUNGS: Clear to auscultated bilaterally, breathing nonlabored. No wheezes crackles or rhonchi. HEART/CARDIOVASCULAR: Regular in rate and rhythm. S1 and S2 positive. ABDOMEN: Abdomen is soft, nontender. Patient has normal bowel sounds. SKIN: There is no rash. Warm and dry. NEURO: No focal motor deficit. Follows command. MUSCULOSKELETAL: No joint effusion or tenderness. EXTRIMITY: No edema, no cyanosis or clubbing. : There is a slightly tender, non-fluctuant, superficial left scrotal nodule without significant associated cellulitis or induration.) PSYCH: Cooperative. - Constitutional Vitals: Vital Signs - 12hr 11/17/20 11/17/20 11/17/20 09:47 09:52 10:00 Temperature 97.9 F Pulse Rate 115 H 115 H Respiratory 20 20 Rate Blood Pressure 129/67 129/67 O2 Sat by Pulse 91 97 Oximetry 11/17/20 11/17/20 12:00 13:19 Temperature 98.0 F Pulse Rate 115 H 92 H Respiratory 22 Rate Blood Pressure 122/80 O2 Sat by Pulse 95 Oximetry - Labs CBC & Chem 7: 11/17/20 06:08 11/18/20 05:13 Labs: Abnormal lab results 11/17/20 11/17/20 Range/Units 06:08 06:08 WBC 12.6 H (4.5-11.0) K/mm3 RBC 5.10 H (3.65-5.03) M/mm3 Hgb 10.3 L (11.8-15.2) gm/dl Hct 32.0 L (35.5-45.6) % MCV 63 L (84-94) fl MCH 20 L (28-32) pg RDW 15.9 H (13.2-15.2) % Roosevelt % (Auto) 8.5 H (0.0-7.3) % Roosevelt # (Auto) 1.1 H (0.0-0.8) K/mm3 Seg Neutrophils # 8.8 H (1.8-7.7) K/mm3 Potassium 2.8 L* (3.6-5.0) mmol/L BUN 6 L (9-20) mg/dL Glucose 185 H (75-100) mg/dL HEART Score - HEART Score Troponin: Troponin T < 0.010 ng/mL (0.00-0.029) 11/07/20 14:24
--- NOTE | 2020-11-17 18:45 | Cat Scan Report ---
CT OF THE ABDOMEN AND PELVIS WITH INTRAVENOUS CONTRAST INDICATION / CLINICAL INFORMATION: Severe diarrhea and possible colitis. TECHNIQUE: The patient received 100 cc Omnipaque [address] scans at this location are performed using CT dose reduction for ALARA by means of automated exposure control. COMPARISON: None available. FINDINGS: ABDOMEN: The study is suboptimal due to the patient's body habitus and streak artifact. No significan t contrast enhancement of the organs is seen. The liver measures 25 cm in length and demonstrates moderate heterogeneous geometric decreased densit y throughout. No discrete rounded mass is seen. The spleen is normal in size. The gallbladder, bile d ucts, pancreas, adrenal glands and kidneys demonstrate no significant abnormality. No adenopathy is p resent. There is no evidence of bowel obstruction, wall thickening or free air. There are numerous small noncalcified solid nodules scattered throughout both lower lung zones, the l argest of which measures approximately 1 cm. There is mild bibasilar dependent atelectasis. PELVIS: The distal ureters, urinary bladder, prostate gland and seminal vesicles are unremarkable. A normal appendix is present and there is no evidence of diverticulitis. No abnormal mass or fluid walt ection is seen. I do not identify a hernia. No significant osseous abnormality is seen. IMPRESSION: 1. Numerous small pulmonary nodules scattered throughout both lungs. Differential diagnosis includes metastatic disease and atypical inflammatory processes. 2. Hepatomegaly with heterogeneous fatty infiltration. Signer Name: Jamarcus Trejo MD Signed: 11/17/2020 6:41 PM Workstation Name: [id number]
[2020-11-18] MEDS: VANCOMYCIN 1,500 MG in SODIUM CHLORIDE 0.9% 500 ML 500 ML IV SCH (06:30)
[2020-11-18 06:34] LABS: Alanine Aminotransferase 67 units/L (7-56); Albumin 2.1 g/dL (3.9-5); BUN/Creatinine Ratio 6; Blood Urea Nitrogen 5 mg/dL (9-20); Calcium 8.1 mg/dL (8.4-10.2); Hemolysis Index 0
[2020-11-18] MEDS: LISINOPRIL 20 MG TAB PO SCH (09:49)
[2020-11-18] MEDS: METOPROLOL TARTRATE 50 MG TAB PO SCH (09:49)
[2020-11-18] MEDS: cefTRIAXone/NS 2 GM/100 ML 2 GM/100 ML BAG IV SCH (09:49)
[2020-11-18] MEDS: HEPARIN 5,000 UNIT/1 ML VIAL SUB-Q SCH (09:50)
[2020-11-18] MEDS: MUPIROCIN 2% OINT 22 GM TP SCH (09:50)
[2020-11-18] MEDS: POTASSIUM CHLORIDE 20 MEQ PACKET PO SCH (09:50)
--- NOTE | 2020-11-18 09:59 | Gastroenterology Consultation ---
History of Present Illness - Reason for Consult Consult date: 11/18/20 Diarrhea Requesting physician: ALEXIS HEBERT - History of Present Illness The patient is a 25 yo male admitted with new-onset DKA. During the course of the hospitalization, he was noted to have a scrotal cellulitis. This was cultured but did not require drainage, and he was placed on IV abx (as well as multiple other new meds). Since admit, he has had intermittent loose/watery stools, though only two in the past 24 hours (by his report). Of note, at home he normally has 4-5 solid BMs/day. He has had an EGD and colonoscopy about 9 years ago (negative, his report) for chronic loose stools. He has no blood in the stools, and denies N/V, abdominal pain, weight loss, or loss of appetite. A CT scan today showed no colitis, and a stool test for WBC was negative. He was on IV Clinda, but this has been changed to ceftriaxone and vanco (IV). He is tolerating a regular diet without complaint. Of note, he does describe what appears to be mild neuropathy developing, and he sometimes can not tell when he is having a BM, it just appears in the bed. Past History Past Medical History: diabetes, hypertension, hyperlipidemia, other (Morbid obesity) Past Surgical History: Other Social history: denies: smoking, alcohol abuse Family history: diabetes Medications and Allergies Allergies Allergy/AdvReac Type Severity Reaction Status Date / Time No Known Allergies Allergy Unverified 11/14/20 09:54 Home Medications Medication Instructions Recorded Confirmed Last Taken Type No Known Home Medications [No 11/08/20 11/08/20 Unknown History Reported Home Medications] Active Meds: Active Medications Acetaminophen (Acetaminophen 325 Mg Tab) 650 mg PO Q6H PRN PRN Reason: Pain, Mild (1-3) Last Admin: 11/13/20 23:40 Dose: 650 mg Documented by: Colesevelam HCl (Colesevelam 625 Mg Tab) 1,875 mg PO BID AKNIT Dextrose (Dextrose 50% In Water (25gm) 50 Ml Syringe) 50 ml IV Q30MIN PRN; Protocol PRN Reason: Hypoglycemia Guaifenesin (Guaifenesin 100 Mg/5 Ml Oral Liqd) 200 mg PO Q4H PRN PRN Reason: Cough Last Admin: 11/13/20 02:51 Dose: 200 mg Documented by: Heparin Sodium (Porcine) (Heparin 5,000 Unit/1 Ml Vial) 5,000 unit SUB-Q Q12HR [facility] Last Admin: 11/18/20 09:50 Dose: 5,000 unit Documented by: Hydralazine HCl (Hydralazine 20 Mg/1 Ml Inj) 10 mg IV Q4HR PRN PRN Reason: Hypertension Last Admin: 11/11/20 04:44 Dose: 10 mg Documented by: Ceftriaxone Sodium (Rocephin/Ns 2 Gm/100 Ml) 2 gm in 100 mls @ 200 mls/hr IV Q24H [facility]; Protocol Last Admin: 11/18/20 09:49 Dose: 200 mls/hr Documented by: Vancomycin HCl 1,500 mg/ (Sodium Chloride) 530 mls @ 333.333 mls/hr IV Q8H [facility] Last Admin: 11/17/20 22:14 Dose: 333.333 mls/hr Documented by: Insulin Glargine (Insulin Glargine 100 Units/Ml) 35 units SUB-Q QHS [facility] Last Admin: 11/17/20 22:16 Dose: Not Given Documented by: Insulin Glargine (Insulin Glargine 100 Units/Ml) 35 units SUB-Q QAMDIAB [facility] Last Admin: 11/17/20 09:51 Dose: 35 units Documented by: Insulin Human Regular (Insulin Regular, Human 100 Units/1 Ml) 0 units SUB-Q ACHS [facility]; Protocol Last Admin: 11/17/20 22:18 Dose: Not Given Documented by: Insulin Human Regular (Insulin Regular, Human 100 Units/1 Ml) 15 units SUB-Q AC [facility]; Protocol Last Admin: 11/17/20 17:32 Dose: 15 units Documented by: Lisinopril (Lisinopril 20 Mg Tab) 20 mg PO QDAY [facility] Last Admin: 11/18/20 09:49 Dose: 20 mg Documented by: Metoprolol Tartrate (Metoprolol Tartrate 5 Mg/5 Ml Inj) 5 mg IV Q6HR PRN PRN Reason: Tachyarrhythmias Last Admin: 11/11/20 01:42 Dose: 5 mg Documented by: Metoprolol Tartrate (Metoprolol Tartrate 50 Mg Tab) 50 mg PO BID [facility] Last Admin: 11/18/20 09:49 Dose: 50 mg Documented by: Mupirocin (Mupirocin 2% Oint 22 Gm) 1 applic TP BID [facility] Last Admin: 11/18/20 09:50 Dose: 1 applic Documented by: Potassium Chloride (Potassium Chloride 20 Meq Packet) 40 meq PO BID [facility] Last Admin: 11/18/20 09:50 Dose: 40 meq Documented by: Sodium Phosphate (K-Phos Neutral 250 Mg Tab) 250 mg PO QID [facility] Last Admin: 11/17/20 22:17 Dose: 250 mg Documented by: I HAVE REVIEWED/RECONCILED HOME MEDS Review of Systems - Review of Systems All systems: negative (as noted in the HPI) Exam - Constitutional Vital Signs: Temp Pulse Resp BP Pulse Ox 100.7 F H 106 H 22 154/85 96 11/18/20 08:01 11/18/20 09:49 11/18/20 08:01 11/18/20 09:49 11/18/20 08:01 General appearance: no acute distress - EENT Eyes: PERRL, EOM intact ENT: hearing intact, clear oral mucosa, dentition normal - Neck Neck: supple, normal ROM - Respiratory Respiratory effort: normal Respiratory: bilateral: CTA - Cardiovascular Rhythm: regular Heart Sounds: Present: S1 & S2 - Gastrointestinal General gastrointestinal: Present: soft, non-tender, non-distended - Integumentary Integumentary: Present: clear (Tattoos), warm, dry - Neurologic Neurological: alert and oriented x3 - Labs CBC & Chem 7: 11/17/20 06:08 11/18/20 05:13 Lab Results: Laboratory Results - last 24 hr 11/18/20 05:13 Sodium 140 Potassium 3.1 L Chloride 105.4 Carbon Dioxide 24 Anion Gap 14 BUN 5 L Creatinine 0.8 Estimated GFR > 60 BUN/Creatinine Ratio 6 Glucose 152 H Calcium 8.1 L Phosphorus 3.50 Magnesium 1.60 L Total Bilirubin 0.30 AST 65 H ALT 67 H Alkaline Phosphatase 85 Total Protein 5.8 L Albumin 2.1 L Albumin/Globulin Ratio 0.6 Assessment and Plan - Patient Problems (1) Diarrhea Current Visit: Yes Status: Acute Plan to address problem: - The patient has baseline irregular stools, and on his CT there is no colitis/WBC are negative in the stool. - I suspect some of this is related to his multiple new medications, including abx for his cellulitis. - I will start Colestipol and stop atorvastatin; this may improve his choles terol at the same time as improving the diarrhea. - Replace potassium as per protocol. Will also check a Mg. - No indication for acute inpatient colonoscopy at present.
[2020-11-18] MEDS: ACETAMINOPHEN 325 MG TAB PO PRN (10:01)
[2020-11-18] MEDS: INSULIN REGULAR, HUMAN 100 UNITS/1 ML SUB-Q SCH ×6 (10:02→17:08)
[2020-11-18] MEDS: INSULIN GLARGINE 100 UNITS/ML SUB-Q SCH (10:03)
[2020-11-18] MEDS: K-PHOS NEUTRAL 250 MG TAB PO SCH ×3 (10:08→17:08)
[2020-11-18] MEDS ORDERED: AMOXICILLIN/K CLAV 875/125MG TAB PO SCH (11:00)
[2020-11-18] MEDS ORDERED: COLESEVELAM 625 MG TAB PO SCH (11:00)
[2020-11-18] MEDS: POTASSIUM CHLORIDE 10 MEQ 10 MEQ/100 ML BAG IV SCH ×2 (12:08→13:27)
[2020-11-18] MEDS ORDERED: GABAPENTIN 100 MG CAP PO SCH (14:00)
--- NOTE | 2020-11-18 14:00 | Progress Note ---
Assessment and Plan Cultures: Wound culture 11/12/2020 gram-negative raymond A/P: 5-year-old man past medical history morbid obesity, diabetes admitted in DKA, found to have scrotal phlegmon #Scrotal phlegmon/abscess: With associated cellulitis. Likely secondary to diabetes, no indication for surgery at this time. #DKA: Tight glycemic control for best wound healing above. #Morbid obesity Recs: -Continue ceftriaxone -Start vancomycin goal trough 10-20 -Likely to DC with Augmentin for 10 days, as discussed with Dr. Truong over the weekend. -Given persistent fevers and leukocytosis would repeat testicular ultrasound to see if phlegmon has coalesced into an abscess. Thank you for the consult, we will continue to follow. Masha Mccarthy MD [facility] O: [phone] F: [phone] Subjective Date of service: 11/18/20 Principal diagnosis: DKA Interval history: Febrile to 101.4, white count 12.6 Imaging personally reviewed: CTAP: Numerous small pulmonary nodules. Objective - Exam Narrative Exam: Physical Exam: Constitutional: Alert, cooperative. No acute distress. Morbid obesity Head, Ears, Nose: Normocephalic, atraumatic. Eyes: Conjunctivae/corneas clear. No icterus. Neck: Supple, no meningeal signs Oral: dentition fair, no thrush Cardiovascular: S1, S2 normal. Respiratory: Good air entry, clear to auscultation bilaterally GI: Soft, non-tender; bowel sounds normal. No peritoneal signs. Musculoskeletal: No pedal edema, no cyanosis. Skin: No rash or abscess Hem/Lymphatic: No palpable cervical or supraclavicular nodes. Psych: Mood ok. Affect normal Neurological: Awake, alert, oriented. No gross abnormality - Constitutional Vitals: Vital Signs Temp Pulse Resp BP Pulse Ox 98.7 F 101 H 20 124/70 96 11/18/20 11:30 11/18/20 11:30 11/18/20 11:30 11/18/20 11:30 11/18/20 11:30 Temperature -Last 24 Hours Temperature 98.7 F Temperature 100.7 F Temperature 98.0 F Temperature 98.0 F Temperature 101.4 F - Labs CBC & Chem 7: 11/17/20 06:08 11/18/20 05:13 Labs: Abnormal lab results 11/18/20 Range/Units 05:13 Potassium 3.1 L (3.6-5.0) mmol/L BUN 5 L (9-20) mg/dL Glucose 152 H (75-100) mg/dL Calcium 8.1 L (8.4-10.2) mg/dL Magnesium 1.60 L (1.7-2.3) mg/dL AST 65 H (5-40) units/L ALT 67 H (7-56) units/L Total Protein 5.8 L (6.3-8.2) g/dL Albumin 2.1 L (3.9-5) g/dL
--- NOTE | 2020-11-18 15:07 | Discharge Summary ---
Providers - Providers Date of Admission: 11/07/20 16:01 Date of discharge: 11/18/20 Attending physician: ALEXIS HEBERT 11/07/20 16:00 PICC Line Insertion [Consult to PICC Line RN] [CONS] Stat Reason For Exam: unable to get IV, pt in DKA Type Line:: PICC 11/07/20 21:00 Consult to Dietitian/Nutrition [CONS] Routine Physician Instructions: Diabetes education Reason For Exam: DKA Reason for Consult: Nutrition Recommendations Reason for Consult: Diet education 11/11/20 05:19 Consult to Wound/ET Nurse [CONS] Routine Reason For Exam: wound eval, right scrotum 11/12/20 11:48 Consult to Physician [CONS] Routine Comment: Consulting Provider: KENY PÉREZ Physician Instructions: Reason For Exam: left groin/scrotal abscess 11/12/20 14:41 Physical Therapy Evaluation and Treat [CONS] Routine Comment: abnormal gait Reason For Exam: PT eval for weakness 11/13/20 16:47 Consult to Physician [CONS] Routine Comment: Consulting Provider: RUFUS VALERA Physician Instructions: Reason For Exam: scrotal abscess 11/17/20 15:42 Consult to Physician [CONS] Routine Comment: Consulting Provider: LILLIE STEVENS Physician Instructions: Reason For Exam: persistent diarrhea Primary care physician: SENIOR TECHNICAL BUSINESS ANALYST Hospitalization Condition: Critical Pertinent studies: Chest x-rays, scrotal/testicular ultrasound, head CT, abdomen pelvis CT Hospital course: This is a 25-year-old male with HTN and morbid obesity who presented to [facility] 11/07 with complaints of severe generalized weakness, shortness of breath and increasing polyuria, polydipsia and polyphagia, SOB on minimal exertion, dry mouth, intermittent vomiting, constipation, dizziness, fatigue for approximately 2 weeks. Work-up in the emergency department revealed leukocytosis, polycythemia, hyponatremia, hypochloremia, Kussmaul's breathing on examination, Anion gap metabolic acidosis, hyperphosphatemia, hypokalemia, blood glucose of 787. Patient was admitted to the hospital service with consults to CCM on the DKA protocol. 11/08: AG not closed, IVF changed to ND from D51/2NS with KCL. Remains on insulin gtt and npo. K replaced 11/09: AG still not closed and remains on insulin gtt. IVF changed to D5 LR. Ordered additional LR bolus. CCM ordered 2 NS bolus. 1400 BMP with repeats at 2000 and 0400. 11/10/2020: Patient's breathing is improved, no chest pain or shortness of breath. Consulted with critical care physician to transition patient off of insulin drip. 11/11/2020, patient is improved, however gap has opened again, will give fluids, increase insulin, replete electrolytes. Patient in no distress. There is an issue of a scrotal wound, wound care has been consulted. 11/12/20; blood glucose around 300 today. Patient noted to have purulent drainage from the left groin and scrotum area. Spiking fever with elevated white count. Will initiate empiric antibiotic, will order scrotal ultrasound and will also consult general surgery. Replete potassium. 11/13/20: Patient developed acute diarrhea since yesterday. Potassium level dropped to 2.7 today. Continue to replete potassium. Magnesium and phosphorus level has been normal. Stop clindamycin will change antibiotic to rocephin and flagyl. Consult ID. Wait for culture result. Surgery recommended no surgical intervention necessary for scrotal abscess. Continue long-acting and sliding scale insulin. Patient does complains of right hand numbness. Will order for a CT head 11/14/20: Patient continues to have low potassium and right hand numbness. CT head yesterday obtained and showed no acute process. Will initiate patient on Neurontin. Discussed plan of care at bedside with patient and also with his mother. ID recommended to stop flagyl and Initiated on vancomycin. Wound culture growing gram-negative rods, will continue to follow. Continue to replete potassium and follow BMP. 11/15/20: continue to have low K level. cont to replete. follow BMP. cont abx 11/16/20: K 3.4 today, BG still at 300s. cont to increase insulin, follow BMP. if K remains stable possible d/c tomorrow. pt still having loose BM 11/17/20: discussed with mother at bedside. patient has h/o chronic diarrhea with 4/5 loose BM daily. has colonoscopy at age of 16 and says findings were normal. Will order CT abd/pelvis, K dropped to 2.8 today. will also consult GI. 11/18/20; CT abdomen pelvis showed no acute intra-abdominal process but multiple bilateral pulmonary nodules. Potassium level 3.1 today. GI recommended medical management and no need for any intervention now. ID recommended to discharge with Augmentin for total 10 days. Stool studies negative for any infectious source. We will further replete potassium and magnesium today. Discharge planning management was thoroughly discussed with the patient and with his mother. They both verbalized understanding. Patient will be discharged home today with outpatient follow-up and home health. Patient was recommended to follow-up with pulmonary as outpatient for bilateral pulmonary nodule. Patient also encouraged to follow-up with PCP in 1 week. Disposition: DC-01 TO HOME OR SELFCARE Final Discharge Diagnosis (Prints w/discharge instructions): --DKA, Severe hypophosphatemia, hyponatremia, hypokalemia, metabolic acidosis, morbid obesity. --Hypertension with elevated triglycerides. --Possible OHS/DOMINIQUE. --Possible scrotal abscess/colitis with sepsis, likely present from admission. --Acute diarrhea, started from 11/12/20, likely from medications. --B/L pulmonary nodules, incidental findings Time spent for discharge: 34 minutes Core Measure Documentation - Palliative Care Palliative Care/ Comfort Measures: Not Applicable - Core Measures Any of the following diagnoses?: none Exam - Physical Exam Narrative exam: GENERAL: well-developed morbidly obese -[place] Citizen male lying on bed appeared to be in no discomfort. HEENT: Normocephalic. Atraumatic. No conjunctival congestion or icterus. Patient has moist mucous membranes. NECK: Supple. Trachea midline. CHEST/LUNGS: Clear to auscultated bilaterally, breathing nonlabored. No wheezes crackles or rhonchi. HEART/CARDIOVASCULAR: Regular in rate and rhythm. S1 and S2 positive. ABDOMEN: Abdomen is soft, nontender. Patient has normal bowel sounds. SKIN: There is no rash. Warm and dry. NEURO: No focal motor deficit. Follows command. MUSCULOSKELETAL: No joint effusion or tenderness. EXTRIMITY: No edema, no cyanosis or clubbing. : There is a slightly tender, non-fluctuant, superficial left scrotal nodule without significant associated cellulitis or induration.) PSYCH: Cooperative. - Constitutional Vitals: Temp Pulse Resp BP Pulse Ox 98.7 F 101 H 20 124/70 96 11/18/20 11:30 11/18/20 11:30 11/18/20 11:30 11/18/20 11:30 11/18/20 11:30 Plan Activity: advance as tolerated Weight Bearing Status: Weight Bear as Tolerated Diet: diabetic Special Instructions: record blood sugar diary (Before meals and at bedtime) Additional Instructions: Please be compliant with your medications dietary restrictions and outpatient follow-up. You have incidental findings of bilateral pulmonary nodules on CAT scan. Please follow-up with school office assistant in 1 to 2 weeks for further outpatient work-up. Continue insulin coverage as directed. Take Lantus 35 units before breakfast and before dinner. Also use 15 units of regular insulin 30 minutes before meal. Please sliding-scale of insulin in addition to Lantus and regular insulin to right chest your blood glu cose as following: BG 150-199: Apply 2 units. BG 200-249: apply 4 units. BG 250 -299: apply 6 units. BG >300 apply 8 units, >350 x2 call PCP. Repeat BMP in next 2-3 days with PCP Follow up with: PRIMARY MD NICOLE [Primary Care Provider] - 3-5 Days MISAEL SMITH MD [Staff Physician] - 7 Days Forms: Work/School Release Form Prescriptions: Insulin Glargine [Lantus VIAL] 35 units SUB-Q QHS 30 Days Amoxicillin/K Clav Tab [Augmentin 875MG TAB] 1 each PO Q12HR #20 tablet Mupirocin [Bactroban 2% OINT] 1 applic TP BID #1 tube Gabapentin 100 mg PO Q8HR #90 capsule Insulin Regular, Human [HumuLIN R] 15 units SUB-Q AC 30 Days Insulin Regular, Human [HumuLIN R] 0 units SUB-Q ACHS 30 Days Phosphorus #1 [K-Phos Neutral] 250 mg PO QID #14 tablet Insulin Glargine [Lantus VIAL] 35 units SUB-Q QAMDIAB 30 Days Metoprolol [Lopressor TAB] 50 mg PO BID #60 tablet Potassium Chloride 40 meq PO BID #10 packet Colesevelam [Welchol] 1,875 mg PO BID #14 tablet lisinopriL [Zestril TAB] 20 mg PO QDAY #30 tablet Other Discharge Orders: Glucometer (Amb) Location: None Selected Glucometer supplies[Amb] Location: None Selected
[2020-11-18 17:26] VITALS: BP 137/73
== END 2020-11-18 17:59 | disposition home or self-care (01) | DRG 871 ==
LOC: ED 12:01 → MERGE 16:01 → CC1 16:01 → 4A 11-10 21:41
PROVIDERS: ADMIT Internal Medicine; ATTEND Internal Medicine
PROC: 06HY33Z Insertion of Infusion Device into Lower Vein, Percutaneous Approach (ICD-10-PCS; principal; 2020-11-07)
DX: A41.9 Sepsis, unspecified organism (principal); E11.11 Type 2 diabetes mellitus with ketoacidosis with coma; E87.1 Hypo-osmolality and hyponatremia; Z68.43 Body mass index [BMI] 50.0-59.9, adult; E87.2 Acidosis; L02.91 Cutaneous abscess, unspecified; E66.01 Morbid (severe) obesity due to excess calories; G47.33 Obstructive sleep apnea (adult) (pediatric); E83.39 Other disorders of phosphorus metabolism; E87.6 Hypokalemia; R19.7 Diarrhea, unspecified; E78.1 Pure hyperglyceridemia; D72.829 Elevated white blood cell count, unspecified; E87.8 Other disorders of electrolyte and fluid balance, not elsewhere classified; E78.5 Hyperlipidemia, unspecified; D75.1 Secondary polycythemia; N49.2 Inflammatory disorders of scrotum; Z79.899 Other long term (current) drug therapy; Z79.891 Long term (current) use of opiate analgesic; Z79.01 Long term (current) use of anticoagulants; Z71.3 Dietary counseling and surveillance; Z83.3 Family history of diabetes mellitus
CPT/HCPCS: 36415; 70450; 71045; 71046; 74177; 80048; 80053; 80061; 80202; 81001; 82805; 82962; 83036; 83735; 84100; 84132; 84484; 85007; 85025; 85027; 86140; 87045; 87076; 87116; 87186; 93005; 93975; 96360; 96361; G0378; A9270-GY; J0360; J0696; J1644; J1815; J3370; J3475; J3480; J7030; J7040; J7120; Q9967